=== PATIENT | male | born 1955 | race Caucasian/White ===

== ENCOUNTER 2016-11-27 15:00 | Observation (INO) | payer OTHER ==
[~2016-11-27] VITALS: Ht 172.7 cm; Wt 60.0 kg
[~2016-11-27 15:00] MED LIST: ASPI81CH32 PO; ASPI81TA7 PO; DILA100C PO; Escitalopram Oxalate PO; FLUO40CA PO; FOLI1TAB2 PO; HYDR-4274 PO; LEXA1TAB2 PO; LIDO5TD TD; NAPR500T2 PO; TYLE500T78 PO; Thiamine Hcl PO; VITA50003 PO
[2016-11-27] MEDS ORDERED: CHARCOAL ACTIVATED LIQUID 25 GM/120 ML BTL As Ordered ONE (15:23)
[2016-11-27 15:46] LABS: MEAN CORPUSCULAR HEMOGLOBIN 32.4 pg (27.0-33.0); MEAN CORPUSCULAR HGB CONC 34.2 g/dl (32.0-36.5); RED CELL DISTRIBUTION WIDTH 12.6 % (11.5-14.5); WHITE BLOOD COUNT 6.2 K/mm3 (4.0-10.0)
[2016-11-27 16:14] LABS: ALBUMIN 3.9 GM/DL (3.2-5.2); ALBUMIN/GLOBULIN RATIO 1.56 (1.00-1.93); ALKALINE PHOSPHATASE 78 U/L (45-117); ALT/SGPT 18 U/L (12-78); ANION GAP 11 MEQ/L (8-16); AST/SGOT 21 U/L (15-37); BILIRUBIN,DIRECT 0.1 MG/DL (0.0-0.2); BILIRUBIN,TOTAL 0.6 MG/DL (0.2-1.0); BLOOD UREA NITROGEN 21 MG/DL (7-18); CALCIUM LEVEL 7.9 MG/DL (8.5-10.1); CARBON DIOXIDE LEVEL 23 MEQ/L (21-32); CHLORIDE LEVEL 105 MEQ/L (98-107); GLOMERULAR FILTRATION RATE > 60.0 (>56); GLUCOSE, FASTING 124 MG/DL (70-105); SODIUM LEVEL 139 MEQ/L (136-145); TOTAL PROTEIN 6.4 GM/DL (6.4-8.2)
[2016-11-27 16:18] LABS: CONTROL LINE INT CTR LINE PRESENT; METHADONE URINE NEGATIVE (NEGATIVE); TRICYCLIC ANTIDEPRESS URINE NEGATIVE (NEGATIVE)
[2016-11-27] MEDS ORDERED: METOCLOPRAMIDE INJ 10MG/2ML VIAL (J2765) IV PRN (16:30)
[2016-11-27] MEDS ORDERED: ESCI20TA PO (16:40)
[2016-11-27] MEDS ORDERED: MIRT30TA3 PO (16:40)
[2016-11-27] MEDS ORDERED: LIDO5TD TOP (16:40)
[2016-11-27] MEDS ORDERED: DILA100C PO (16:40)
[2016-11-27] MEDS ORDERED: WELL200T PO (16:40)
[2016-11-27] MEDS ORDERED: NAPR500T2 PO (16:40)
--- NOTE | 2016-11-27 17:19 | EDDOCDS ---
Physician Documentation [facility] Name: Moo Elder Age: 60 yrs Sex: Male : 1955 Arrival Date: 11/27/2016 Time: 15:00 Bed 3 Private MD: Disposition: 11/27 16:27 Critical Care:. pc Disposition: 11/27/16 16:33 Hospitalization ordered by Hailey Maharaj for Inpatient Admission. Preliminary diagnosis are Suicide attempt - by drug overdose: Wellbutrin SR, Lexapro, Major depressive disorder, recurrent, moderate. - Bed requested for PCU. - Status is Inpatient Admission. bcj - Condition is Stable. - Problem is new. - Symptoms have improved. HPI: 15:11 This 60 yrs old Male presents to ER with complaints of Suicidal Ideation, pc Possible Overdose. 15:11 The history is obtained from the patient, transfer records. The patient presents to the emergency department with suicidal ideation, depression, intentional drug overdose. The patient's intention was to commit suicide. At their worst, the symptoms were severe. In the emergency department, the symptoms are unchanged. He presented to his Psychiatrist appointment today and was noted to be slurring his words and unsteady on his feet. He admitted to taking some of his pills (which includes Wellbutrin, Lexapro, Dilantin) as an overdose to commit suicide. He was sent on legal papers via EMS. 15:14 The patient has experienced a previous episode, approximately 10 months ago, and the pc symptoms today are exactly the same. Historical: - Allergies: no known allergies; - Home Meds: 1. Wellbutrin SR 200 mg Oral TbER 1 tab 2 times per day (Last dose: Unknown) 2. citalopram 20 mg Oral tab 1 tab once daily (Last dose: Unknown) 3. aspirin 81 mg Oral TbEC 1 tab once daily (Last dose: Unknown) 4. Dilantin 200mg Oral cap twice a day (Last dose: Unknown) 5. mirtazapine 30 mg Oral tab 1 tab once daily (Last dose: Unknown) - PMHx: Arthritis; brain tumor (1989); Depression; Seizure Disorder; tremors; - PSHx: brain tumor (1990); jaw; - The history from nurses notes was reviewed: but there are no nursing notes, or only partial notes available at the time of my charting. - Social history: Smoking status: Patient uses tobacco products, heavy tobacco smoker. No barriers to communication noted, Speaks appropriately for age. - Hospitalizations: : No recent hospitalization is reported. - : The pt / caregiver states he / she is not on anticoagulants. Home medication list is obtained from the patient. - Immunization history:: All immunizations up-to-date. - Exposure Risk Screening:: None identified. - Family history: Not pertinent. - Social history:: the patient smokes cigarettes the patient drinks alcohol. ROS: 15:14 All systems are negative except as listed. The psychiatric and neurological components pc are also addressed in the HPI. Exam: 15:14 General Appearance: alert, no acute distress. pc 15:14 ENT: ear, nose and throat normal, pharynx normal. 15:14 Eyes: pupils equal, round and reactive to light, extraocular motions intact. 15:14 Neck: The exam reveals no acute abnormalities. ROM is normal and painless. No nuchal rigidity is noted.. 15:14 Respiratory: breathing is even and unlabored, breath sounds are normal. 15:14 Cardiovascular: regular pulse rate, regular heart rhythm, normal heart sounds, equal and full pulses bilaterally. 15:14 Abdomen: soft, non-tender, no organomegaly, normal bowel sounds. 15:14 Skin: skin color is normal, warm, dry. 15:14 Extremities: The extremities have a grossly normal appearance, are non-tender, without acute ROM abnormalities. 15:14 Neuro: alert, oriented to person, place and time, cranial nerves normal as tested, no motor deficits, no sensory deficits, thick speech. 15:14 Psych: 15:14 Psych: mood is depressed, suicidal, affect is flat. Vital Signs: 15:06 BP 112 / 61 (auto/); ml6 15:07 Pulse 90 MON; Resp 16; Temp 98.9(O); Pulse Ox 98% on R/A; Weight 74.84 kg / 164.99 lbs ml6 (R); Height 5 ft. 8 in. (172.72 cm) (R); Pain 0/10; 15:15 BP 112 / 63 (auto/); ml6 15:15 Pulse 93 MON; Resp 16; Pulse Ox 96% on R/A; Pain 0/10; ml6 15:30 BP 111 / 63 (auto/); ml6 15:30 Pulse 90 MON; Resp 16; Pulse Ox 95% on R/A; ml6 15:45 BP 114 / 60 (auto/); ml6 15:45 Pulse 92 MON; Resp 16; Pulse Ox 97% on R/A; ml6 16:00 BP 99 / 58 (auto/); ml6 16:00 Pulse 88 MON; Resp 16; Pulse Ox 95% on R/A; Pain 0/10; ml6 16:15 BP 107 / 56 (auto/); bcj 16:15 BP 102 / 61; Pulse 80; Resp 16; Temp 98.8(O); Pulse Ox 98% on R/A; Pain 0/10; bcj 16:15 Pulse 87 MON; Resp 16; Pulse Ox 95% on R/A; bcj 16:30 BP 107 / 58 (auto/); bcj 16:30 Pulse 85 MON; Resp 16; Pulse Ox 95% on R/A; Pain 0/10; bcj 16:49 BP 95 / 54 (auto/); bcj 16:49 Pulse 86 MON; Resp 16; Pulse Ox 95% on R/A; bcj 15:07 Body Mass Index 25.09 (74.84 kg, 172.72 cm) ml6 MDM: 15:08 Activated Charcoal (1g/kg) Suspension 50 grams PO once ordered. pc 15:08 Consult PFS/PSA/Quality Control Representative ordered. pc 15:08 Consult PFS/PSA/Quality Control Representative: Patient's case requires discussion with on-call pc Psychiatrist ordered. 15:08 PSA/PFS to call Nursing Avionics Safety Inspector, to enter patient data on [place] Safe Act if patient pc involuntarily admitted or transferred for SI or HI ordered. 15:08 Call Poison Control ordered. pc 15:08 Resident Advisor/Pulse Ox/q 15 min VS ordered. pc 15:08 Confirm accurate psychiatric medication list and times of last dosage ordered. pc 15:08 Detain Pt Until Medically/PFS Cleared ordered. pc 15:08 IV Saline Lock ordered. pc 15:08 Acetaminophen Level Ordered. EDMS 15:08 Basic Metabolic Profile Ordered. EDMS 15:08 Complete Blood Count Ordered. EDMS 15:08 Drug Eval Toxicology ED Only Ordered. EDMS 15:08 Ethyl Alcohol (ethanol) Ordered. EDMS 15:08 Liver Profile Ordered. EDMS 15:08 Salicylate Level Ordered. EDMS 15:08 Thyroid Stimulating Hormone Ordered. EDMS 15:08 ECG WITH READING ER PHYS+CARDIAG ordered. EDMS 15:14 Differential diagnosis: depression, suicide attempt, intentional drug overdose. Plan: pc labs, EKG, Poison Control, PFS. 15:30 Test interpretation: EKG. pc 15:43 NS 0.9% 1000 ml IV at 100 mL/hr continuous ordered. pc 15:52 PHENYTOIN Ordered. EDMS 16:20 Financial registration complete. kf3 16:20 Acetaminophen Level Reviewed. pc 16:20 Basic Metabolic Profile Reviewed. pc 16:20 Complete Blood Count Reviewed. pc 16:20 Drug Eval Toxicology ED Only Reviewed. pc 16:20 Ethyl Alcohol (ethanol) Reviewed. pc 16:20 Liver Profile Reviewed. pc 16:20 Salicylate Level Reviewed. pc 16:20 Thyroid Stimulating Hormone Reviewed. pc 16:20 PHENYTOIN Reviewed. pc 16:22 BED REQUEST+ADM ordered. EDMS 16:27 [place] Safe Act reporting: The patient poses a significant risk to self or others, and pc PSA/PFS has notified the Nursing Avionics Safety Inspector and he/she will complete the required data warehousing architect. Data reviewed: old medical records, vital signs, nurses notes, EKG(s), lab test results. Test interpretation: LAB - all labs as ordered have been reviewed, interpreted and considered in the overall management of the clinical presentation;. The patient has been re-examined and re-evaluated. The patient's symptoms have mildly improved after treatment. Other consultation: Poison control, instructed to admit patient. 16:27 Physician consultation: Dr. Hailey Maharaj was contacted at 16:28, regarding admission. pc Disposition: The historical points, examination findings, and any diagnostic results supporting the provided diagnosis, were discussed with the patient or legal guardian. The need for further work-up and/or treatment in the hospital was explained. 16:31 Admission / Observation Status ordered. EDMS 16:31 REGULAR DIET ordered. EDMS 16:37 [facility] [place] Agreement was scanned into Splice and attached to record. zo EC:30 Rate is 89 beats/min. Rhythm is regular, Normal Sinus Rhythm. QRS [place] is Normal. [place] pc interval is normal. QRS interval is normal. QT interval is normal. No Q waves. T waves are Normal. ST Segment is depressed in leads V4, V5, V6. Clinical impression: Normal Sinus Rhythm and Nonspecific ST-T changes. Administered Medications: 15:28 Drug: Activated Charcoal (1g/kg) 50 grams [activated charcoal 25 gram/120 mL oral ml6 suspension (4800 drps)] Route: PO; 15:46 Drug: NS 0.9% 1000 ml [sodium chloride 0.9 % intravenous solution] Route: IV; Rate: 100 ml6 mL/hr; Site: left antecubital; Critical Care Time: 16:27 Critical care time: Bedside Care: 30 minutes, Consultation: 10 minutes. Total time: 40 pc minutes Signatures: Dispatcher [employer] EDMS Sebastián Miller MD MD pc Johnson, Bruce, RN RN Randal Guaman Kris, Reg Reg kf3 Philippe Foote RN RN ml6 Spenser England RN RN mts The chart was reviewed and I authenticate all verbal orders and agree with the evaluation and treatment provided.Corrections: (The following items were deleted from the chart) 15:23 15:11 He presented to his Psychiatrist appointment today and was noted to be slurring pc his words and unsteady on his feet. He admitted to taking some of his pills as an overdose to commit suicide. He was sent on l;egal papers via EMS pc 15:51 15:24 PHENYTOIN (DILANTIN)+LAB ordered. EDGA EDMS Attachments: 16:37 [facility] Payment Agreement zo MTDD
--- NOTE | 2016-11-27 17:19 | EDDOCDS ---
Nurse's Notes [facility] Name: Moo Elder Age: 60 yrs Sex: Male : 1955 Arrival Date: 11/27/2016 Time: 15:00 Bed 3 Private MD: Diagnosis: Suicide attempt-by drug overdose: Wellbutrin SR, Lexapro;Major depressive disorder, recurrent, moderate Presentation: 11/27 15:05 Presenting complaint: Patient states: states that he took 8-9 of his pills in hopes ml6 that he would . Mental Health Triage Level: Level 2: The patient displays active suicidal ideations. Adult Sepsis Screening: The patient does not have new or worsening altered mentation. Patient's respiratory rate is less than 22. Systolic blood pressure is greater than 100. Patient has a qSOFA score of 0- Negative Sepsis Screen. Suicide/Homicide risk assessment- The patient admits to and/or has been reported to be having suicidal ideations. Status: Patient is not a service employee or dependent. Transition of care: patient was received from a primary care office; . 15:05 Acuity: SRIKANTH Level 2 ml6 15:05 Method Of Arrival: Ambulance ml6 Triage Assessment: 15:05 General: Appears in no apparent distress, Behavior is appropriate for age, cooperative. ml6 Pain: Denies pain. HIV screening NA for this visit Offered previously. The patient is triaged at the bedside. See Assessment in Nurses Notes section of ED record. Neurological: Level of Consciousness is awake, alert, Oriented to person, place, time, Outside Sales are equal bilaterally Moves all extremities. Full function Gait is steady, Speech is normal, Facial symmetry appears normal, Pupils are PERRLA. Cardiovascular: No deficits noted. Capillary refill < 3 seconds is brisk in bilateral fingers toes Heart tones S1 S2 present. Respiratory: No deficits noted. Airway is patent Respiratory effort is even, unlabored, Respiratory pattern is regular, symmetrical. GI: No deficits noted. Abdomen is flat, non- distended Bowel sounds present X 4 quads. Historical: - Allergies: no known allergies; - Home Meds: 1. Wellbutrin SR 200 mg Oral TbER 1 tab 2 times per day (Last dose: Unknown) 2. citalopram 20 mg Oral tab 1 tab once daily (Last dose: Unknown) 3. aspirin 81 mg Oral TbEC 1 tab once daily (Last dose: Unknown) 4. Dilantin 200mg Oral cap twice a day (Last dose: Unknown) 5. mirtazapine 30 mg Oral tab 1 tab once daily (Last dose: Unknown) - PMHx: Arthritis; brain tumor (1989); Depression; Seizure Disorder; tremors; - PSHx: brain tumor (1990); jaw; - The history from nurses notes was reviewed: but there are no nursing notes, or only partial notes available at the time of my charting. - Social history: Smoking status: Patient uses tobacco products, heavy tobacco smoker. No barriers to communication noted, Speaks appropriately for age. - Hospitalizations: : No recent hospitalization is reported. - : The pt / caregiver states he / she is not on anticoagulants. Home medication list is obtained from the patient. - Immunization history:: All immunizations up-to-date. - Exposure Risk Screening:: None identified. - Family history: Not pertinent. - Social history:: the patient smokes cigarettes the patient drinks alcohol. Screenin:33 Screening information is obtained from the patient. Fall risk: No risks identified. ml6 Assistance ADL's: requires no assistance with activities of daily living. Abuse/DV Screen: The patient / caregiver reports he/she is: not in a situation that causes fear, pain or injury. Nutritional screening: No deficits noted. Advance Directives: Currently, there is no health care proxy. home support is adequate. Assessment: 15:05 General: see triage assessment. ml6 15:42 General: per Terrie at poison control 24 hour OBS and IVF. ml6 16:13 General: patient pulled out IV, states "I thought it would be fun to do", new 18g PIV ml6 restarted in left FA. 17:16 General: Appears in no apparent distress, comfortable. Pain: Denies pain. Neurological: bcj No deficits noted. Level of Consciousness is awake, alert, Oriented to person, place, time. Cardiovascular: No deficits noted. Capillary refill < 3 seconds is brisk in bilateral fingers toes. Respiratory: No deficits noted. Airway is patent Respiratory effort is even, unlabored, Respiratory pattern is regular, symmetrical, Breath sounds are clear bilaterally. GI: No deficits noted. Vital Signs: 15:06 BP 112 / 61 (auto/); ml6 15:07 Pulse 90 MON; Resp 16; Temp 98.9(O); Pulse Ox 98% on R/A; Weight 74.84 kg (R); Height 5 ml6 ft. 8 in. (172.72 cm) (R); Pain 0/10; 15:15 BP 112 / 63 (auto/); ml6 15:15 Pulse 93 MON; Resp 16; Pulse Ox 96% on R/A; Pain 0/10; ml6 15:30 BP 111 / 63 (auto/); ml6 15:30 Pulse 90 MON; Resp 16; Pulse Ox 95% on R/A; ml6 15:45 BP 114 / 60 (auto/); ml6 15:45 Pulse 92 MON; Resp 16; Pulse Ox 97% on R/A; ml6 16:00 BP 99 / 58 (auto/); ml6 16:00 Pulse 88 MON; Resp 16; Pulse Ox 95% on R/A; Pain 0/10; ml6 16:15 BP 107 / 56 (auto/); bcj 16:15 BP 102 / 61; Pulse 80; Resp 16; Temp 98.8(O); Pulse Ox 98% on R/A; Pain 0/10; bcj 16:15 Pulse 87 MON; Resp 16; Pulse Ox 95% on R/A; bcj 16:30 BP 107 / 58 (auto/); bcj 16:30 Pulse 85 MON; Resp 16; Pulse Ox 95% on R/A; Pain 0/10; bcj 16:49 BP 95 / 54 (auto/); bcj 16:49 Pulse 86 MON; Resp 16; Pulse Ox 95% on R/A; bcj 15:07 Body Mass Index 25.09 (74.84 kg, 172.72 cm) ml6 Vitals: 15:30 Log In Time N/A - ambulance arrival. ml6 ED Course: 15:01 Patient visited by Avila Campos PCA. jrd 15:01 Patient moved to Waiting jrd 15:02 Philippe Foote, MEGAN is Primary Nurse. jrd 15:02 Sebastián Miller MD is Attending Physician. pc 15:02 Patient moved to 3 jrd 15:05 The patient / caregiver is instructed regarding the plan of care and ED course. Cardiac ml6 monitor on. Pulse ox on. NIBP on. 15:05 Inserted peripheral IV: 18gauge IV in left antecubital area and blood collected. ml6 Patient tolerated the procedure well. Labs drawn. (by ED staff). Sent per order to lab. 15:06 Patient visited by Sebastián Miller MD. pc 15:30 Triage Initiated ml6 15:31 Patient visited by Avila Campos PCA. jrd 15:31 EKG done. (by ED staff). Reviewed by Sebastián Miller MD. jrd 16:04 Patient visited by Philippe Foote RN. ml6 16:13 PHENYTOIN Sent. pc 16:33 Hailey Maharaj is Hospitalizing Provider. pc 16:37 [facility] Payment Agreement was scanned into A[employer] and attached to record. zo 16:39 Patient name changed from Moo\\S\\\\S\\Baszto\\S\\ to Moo\\S\\ \\S\\Baszto. EDMS 17:18 No procedures done that require assistance. bcj Administered Medications: 15:28 Drug: Activated Charcoal (1g/kg) 50 grams [activated charcoal 25 gram/120 mL oral ml6 suspension (4800 drps)] Route: PO; 15:46 Drug: NS 0.9% 1000 ml [sodium chloride 0.9 % intravenous solution] Route: IV; Rate: 100 ml6 mL/hr; Site: left antecubital; Order Results: Lab Order: Acetaminophen Level; SPEC'M 11/27/16 15:18 Test: ACETAMINOPHEN LEVEL; Value: < 2.0; Range: 10.0-30.0; Abnormal: Below low normal; Units: UG/ML; Status: F Lab Order: Basic Metabolic Profile; SPEC'M 11/27/16 15:18 Test: GLUCOSE, FASTING; Value: 124; Range: 70-105; Abnormal: Above high normal; Units: MG/DL; Status: F Test: BLOOD UREA NITROGEN; Value: 21; Range: 7-18; Abnormal: Above high normal; Units: MG/DL; Status: F Test: CREATININE FOR GFR; Value: 1.30; Range: 0.70-1.30; Units: MG/DL; Status: F Test: GLOMERULAR FILTRATION RATE; Value: > 60.0; Range: >56; Status: F Test: SODIUM LEVEL; Value: 139; Range: 136-145; Units: MEQ/L; Status: F Test: POTASSIUM SERUM; Value: 4.0; Range: 3.5-5.1; Units: MEQ/L; Status: F Test: CHLORIDE LEVEL; Value: 105; Range: 98-107; Units: MEQ/L; Status: F Test: CARBON DIOXIDE LEVEL; Value: 23; Range: 21-32; Units: MEQ/L; Status: F Test: ANION GAP; Value: 11; Range: 8-16; Units: MEQ/L; Status: F Test: CALCIUM LEVEL; Value: 7.9; Range: 8.5-10.1; Abnormal: Below low normal; Units: MG/DL; Status: F Test Note: ; Units are mL/min/1.73 m2 Chronic Kidney Disease Staging per NKF: Stage I & II GFR >=60 Normal to Mildly Decreased Stage III GFR 30-59 Moderately Decreased Stage IV GFR 15-29 Severely Decreased Stage V GFR <15 Very Little GFR Left ESRD GFR <15 on LAMINATION MACHINE OPERATOR Lab Order: Complete Blood Count; [facility] 11/27/16 15:18 Test: WHITE BLOOD COUNT; Value: 6.2; Range: 4.0-10.0; Units: K/mm3; Status: F Test: RED BLOOD COUNT; Value: 3.97; Range: 4.30-6.10; Abnormal: Below low normal; Units: M/mm3; Status: F Test: HEMOGLOBIN; Value: 12.9; Range: 14.0-18.0; Abnormal: Below low normal; Units: g/dl; Status: F Test: HEMATOCRIT; Value: 37.7; Range: 42.0-52.0; Abnormal: Below low normal; Units: %; Status: F Test: MEAN CORPUSCULAR VOLUME; Value: 95.0; Range: 80.0-96.0; Units: fl; Status: F Test: MEAN CORPUSCULAR HEMOGLOBIN; Value: 32.4; Range: 27.0-33.0; Units: pg; Status: F Test: MEAN CORPUSCULAR HGB CONC; Value: 34.2; Range: 32.0-36.5; Units: g/dl; Status: F Test: RED CELL DISTRIBUTION WIDTH; Value: 12.6; Range: 11.5-14.5; Units: %; Status: F Test: PLATELET COUNT, AUTOMATED; Value: 231; Range: 150-450; Units: k/mm3; Status: F Lab Order: Drug Eval Toxicology ED Only; SPEC'M 11/27/16 15:18 Test: AMPHETAMINES LEVEL URINE; Value: NEGATIVE; Range: NEGATIVE; Status: F Test: BARBITURATES URINE; Value: NEGATIVE; Range: NEGATIVE; Status: F Test: BENZODIAZEPINES URINE; Value: NEGATIVE; Range: NEGATIVE; Status: F Test: CANNABINOIDS URINE; Value: NEGATIVE; Range: NEGATIVE; Status: F Test: COCAINE METABOLITE URINE; Value: NEGATIVE; Range: NEGATIVE; Status: F Test: METHADONE URINE; Value: NEGATIVE; Range: NEGATIVE; Status: F Test: OPIATES URINE; Value: NEGATIVE; Range: NEGATIVE; Status: F Test: TRICYCLIC ANTIDEPRESS URINE; Value: NEGATIVE; Range: NEGATIVE; Status: F Test Note: ; ALL PRESUMPTIVE POSITIVE FINDINGS ARE UNCONFIRMED NORMAL VALUES THRESHOLD IN NG/ML AMPHETAMINES 1000 METHAMPHETAMINES 1000 BARBITURATES 300 BENZODIAZEPINES 300 CANNABINOIDS (THC) 50 COCAINE METABOLITE 300 METHADONE 300 OPIATES 300 PHENCYCLIDINE 25 TRICYCLIC ANTIDEPRESSANTS 1000 RESULTS ARE FOR MEDICAL PURPOSES ONLY. ALL URINE SPECIMENS WILL BE SAVED FOR 3 DAYS. IF CONFIRMATION OF A PRESUMPTIVE POSTIVE SCREEN RESULT IS DESIRED, CALL CHEMISTRY ([phone]) AND REQUEST URINE TO BE SENT TO REFERENCE LAB. FOR A LIST OF CLOSELY RELATED COMPOUNDS PLEASE CALL THE LAB. Lab Order: Ethyl Alcohol (ethanol); SPEC'M 11/27/16 15:18 Test: ETHYL ALCOHOL (ETHANOL); Value: < 0.003; Range: 0.000-0.010; Units: %; Status: F Lab Order: Liver Profile; SPEC'M 11/27/16 15:18 Test: AST/SGOT; Value: 21; Range: 15-37; Units: U/L; Status: F Test: ALT/SGPT; Value: 18; Range: 12-78; Units: U/L; Status: F Test: ALKALINE PHOSPHATASE; Value: 78; Range: 45-117; Units: U/L; Status: F Test: BILIRUBIN,TOTAL; Value: 0.6; Range: 0.2-1.0; Units: MG/DL; Status: F Test: BILIRUBIN,DIRECT; Value: 0.1; Range: 0.0-0.2; Units: MG/DL; Status: F Test: TOTAL PROTEIN; Value: 6.4; Range: 6.4-8.2; Units: GM/DL; Status: F Test: ALBUMIN; Value: 3.9; Range: 3.2-5.2; Units: GM/DL; Status: F Test: ALBUMIN/GLOBULIN RATIO; Value: 1.56; Range: 1.00-1.93; Status: F Lab Order: Salicylate Level; SPEC'M 11/27/16 15:18 Test: SALICYLATE LEVEL; Value: 6.7; Range: 5.0-30.0; Units: MG/DL; Status: F Lab Order: Thyroid Stimulating Hormone; SPEC'M 11/27/16 15:18 Test: THYROID STIMULATING HORMONE; Value: 0.377; Range: 0.358-3.740; Units: uIU/ML; Status: F Lab Order: PHENYTOIN; SPEC'M 11/27/16 15:18 Test: PHENYTOIN (DILANTIN); Value: 10.2; Range: 10.0-20.0; Units: UG/ML; Status: F Outcome: 16:33 Decision to Hospitalize by Provider. 17:18 Discharge Assessment: patient administered narcotics - no. The following High Risk [facility] Discharge criteria are identified: None. Admitted to PCU accompanied by nurse, accompanied by tech, via stretcher, on monitor, with chart. Condition: stable. No special radiology studies were completed. Property :Personal belongings accompany Pt. 17:18 Patient left the ED. [facility] Signatures: Dispatcher [employer] EDSebastián Case MD MD pc Johnson, Bruce, RN RN Rnadal Guaman Matthew, RN RN ml6 Avila Campos, SIMEON REHABILITATION COORDINATOR jrd MTDD
[2016-11-27 17:30] VITALS: BP 105/65
[2016-11-27 19:04] VITALS: BP 107/63
[2016-11-27] MEDS: **NOTE PATIENT COMMENT** MISC XX SCH (21:00)
[2016-11-28 00:21] VITALS: BP 105/56
[2016-11-28] MEDS: LORazepam 2 MG/ML VIAL (J2060) IV PRN ×2 (03:06→09:56)
[2016-11-28 03:36] VITALS: BP 118/65
[2016-11-28 05:22] LABS: BASO % 0.6 % (0.0-1.0); EOS # 0.1 K/mm3 (0.0-0.50); EOS % 1.3 % (0.0-3.0); LARGE UNSTAINED CELL # 0.2 K/mm3 (0.0-0.4); LARGE UNSTAINED CELL % 3.7 % (0.0-4.0); LYMPH # 2.9 K/mm3 (1.5-4.5); LYMPH % 45.3 % (24.0-44.0); MEAN CORPUSCULAR HEMOGLOBIN 31.4 pg (27.0-33.0); MEAN CORPUSCULAR HGB CONC 33.1 g/dl (32.0-36.5); MEAN CORPUSCULAR VOLUME 94.9 fl (80.0-96.0); MONO # 0.6 K/mm3 (0.0-0.8); MONO % 9.9 % (0.0-5.0); NEUTROPHILS # 2.5 K/mm3 (1.8-7.7); NEUTROPHILS % 39.2 % (36.0-66.0); PLATELET COUNT, AUTOMATED 218 k/mm3 (150-450); RED CELL DISTRIBUTION WIDTH 12.6 % (11.5-14.5); WHITE BLOOD COUNT 6.3 K/mm3 (4.0-10.0)
[2016-11-28 05:31] LABS: ALBUMIN 3.6 GM/DL (3.2-5.2); ALBUMIN/GLOBULIN RATIO 1.29 (1.00-1.93); ALKALINE PHOSPHATASE 72 U/L (45-117); ALT/SGPT 14 U/L (12-78); ANION GAP 7 MEQ/L (8-16); AST/SGOT 22 U/L (15-37); BILIRUBIN,TOTAL 0.4 MG/DL (0.2-1.0); BLOOD UREA NITROGEN 14 MG/DL (7-18); CALCIUM LEVEL 8.1 MG/DL (8.5-10.1); CARBON DIOXIDE LEVEL 27 MEQ/L (21-32); CHLORIDE LEVEL 109 MEQ/L (98-107); CREATININE FOR GFR 0.91 MG/DL (0.70-1.30); GLOMERULAR FILTRATION RATE > 60.0 (>56); GLUCOSE, FASTING 80 MG/DL (70-105); POTASSIUM SERUM 3.8 MEQ/L (3.5-5.1); SODIUM LEVEL 143 MEQ/L (136-145); TOTAL PROTEIN 6.4 GM/DL (6.4-8.2)
--- NOTE | 2016-11-28 06:01 | HPE ---
DATE OF ADMISSION: 11/27/2016 PRIMARY CARE PROVIDER: Lary Francisco. CHIEF COMPLAINT: Suicidal attempt with intake of Wellbutrin, Lexapro and dilantin. PAST MEDICAL HISTORY: 1. Brain tumor in 1990 status post surgery and radiation therapy. 2. Seizure disorder. 3. Tremors. 4. Learning disability. 5. Depression with suicidal attempt in the past. 6. Arthritis. HISTORY OF PRESENT ILLNESS: This is a 60-year-old male with history of brain tumor in 1990, for which he had undergone surgery followed by radiation therapy. Also history of seizure disorder related to that. History of depression with prior suicidal attempt in January 2016, learning disability, who has been going through a separation with his of 36 years. They have been seeing psychiatrist and a counselor at [facility], as well as have been seeing a psychologist, Fili Fregoso, at [place] for the past year since his last suicidal attempt. However, now their separation is more defined and they have set up a date and the plan is for him to move to an apartment in [place] with a tentative date of 05/23 and this morning he had an appointment with his counselor at [facility]. He was taken by his public health social worker there for his appointment and there he told that he was depressed and sad and he did not want to live anymore, so he had taken eight or nine pills together of his dilantin, Lexapro and Wellbutrin, so he was sent to our emergency room for evaluation. In the emergency department (ED), patient's vital signs were stable. Patient's blood work was within normal limits. EKG sinus rhythm without any QTc prolongation. His urine toxicology (U-tox) was negative. Dilantin level was therapeutic range. Poison Control was called by emergency room (ER) physician and was advised 24-hour telemetry monitoring because of his intake of unknown quantity of long-acting Wellbutrin, so the patient is being admitted to the [facility] hospital practice service for suicidal attempt. PAST SURGICAL HISTORY: 1. Brain tumor surgery in 1990. 2. Jaw surgery. ALLERGIES: No known drug allergies. HOME MEDICATIONS: - Wellbutrin extended release 200 mg one tablet twice a day - citalopram 20 mg one tablet daily - aspirin 81 mg daily - dilantin 200 mg twice a day - mirtazapine 30 mg one tablet daily SOCIAL HISTORY: Patient smokes and drinks alcohol, does not abuse recreational drugs. FAMILY HISTORY: Nothing pertinent. PHYSICAL EXAMINATION: VITAL SIGNS: Blood pressure 108/60, pulse 88, respiratory rate 16, temperature 98.9, pulse oximetry 95% in room air. GENERAL: Patient awake, alert, oriented times three, lying down in bed in no acute distress. HEENT: Normocephalic, atraumatic. Moist mucous membranes. Anicteric eyes. CHEST: Clear to auscultation. CARDIOVASCULAR: S1, S2 regular. ABDOMEN: Soft, nontender, bowel sounds present. EXTREMITIES: No edema. LABORATORY DATA: WBC 6.2, hemoglobin 12.9, platelets 231. Sodium 139, potassium 4, chloride 105, bicarbonate 26, BUN 21, creatinine 1.3, glucose 124, calcium 7.9. Liver function tests are normal. U-tox negative. Dilantin level 10.2. Alcohol level negative. ASSESSMENT AND PLAN: This is a 60-year-old male admitted for suicidal attempt. PLAN: 1. Suicidal attempt. Will monitor the patient under telemetry for 24 hours and then once medically cleared will call psychiatry. Will hold his Lexapro, dilantin, Wellbutrin and also mirtazapine as unknown quantities of the three medications have been taken. 2. Major depressive disorder with suicidal attempt. Will call psychiatry once medically cleared. Will place the patient on one-to-one. 3. Tremors and seizure disorder. Will hold dilantin now. Will recheck dilantin level tomorrow morning and then restart. 4. History of brain tumor status post surgery and radiation. Stable at this point. 5. Deep venous thrombosis (DVT) prophylaxis has been ordered. 6. Gastrointestinal (GI) prophylaxis has been ordered.
--- NOTE | 2016-11-28 07:23 | ECGEPIP ---
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
[2016-11-28 08:00] VITALS: BP 132/71
[2016-11-28] MEDS: ASPIRIN 81 MG CHEW TABLET PO SCH (09:56)
[2016-11-28] MEDS: ENOXAPARIN 40 MG/0.4 ML SYRINGE (J1650) SC SCH (09:56)
[2016-11-28] MEDS: LIDOCAINE 5% (LIDODERM) PATCH TOP SCH (09:56)
[2016-11-28] MEDS: PANTOPRAZOLE 40MG TAB (PROTONIX) PO SCH (09:56)
--- NOTE | 2016-11-28 10:15 | IPNPDOC ---
Subjective Date Seen The patient was seen on 11/28/16. Subjective Chief Complaint/HPI The patient is a 60-year-old male admitted with a reason for visit of Suicide Attempt. Events since last encounter Seen this morning in the PCU. He was admitted yesterday afternoon after reportedly attempting to overdose on dilantin and wellbutrin at around 1800 the night prior, per the patient. Tele reviewed and demonstrates NSR, Qtc WNL on EKG. He denies SI today but continues to have fluctuating levels of consciousness and agitation per nursing staff. Dilantin and Salicylate levels both increased at last check, however, both levels were w/in normal range. General: Reports: Normal Appetite, Denies: Chills, Fatigue, Malaise, Night Sweats Constitutional: Denies: Chills, Fever, Night Sweats ENT: Denies: Dysphagia, Ear Pain, Head Aches Pulmonary: Denies: Cough, Dyspnea Cardiovascular: Denies: Chest Pain, Lt Headedness, Orthopnea, Palpitations, Paroxysmal Noc. Dyspnea Gastrointestinal: Denies: Abdominal Pain, Constipation, Diarrhea, Nausea, Vomiting Hematologic: Denies: Bleeding Excessively, Bruising Neurological: Reports: Other Symptoms (cronic rigidity) Psych: Reports: Depression, Thoughts of Self Harm, Denies: Thoughts of Harming Other Objective Physical Examination General Exam: Positive: Alert, Cooperative Eye Exam: Positive: Conjunctiva & lids normal, EOMI, PERRLA, Negative: Sclera icteric ENT Exam: Positive: Atraumatic, Mucous membr. moist/pink, Pharynx Normal Neck Exam: Positive: Supple, Negative: JVD, thyromegaly Chest Exam: Positive: Clear to auscultation, Normal air movement Heart Exam: Positive: Normal S1, Normal S2, Rate Normal, Regular Rhythm, Negative: Murmurs, Rubs Telemetry: Positive: No significant arrhythmia, Sinus Abdomen Exam: Positive: Normal bowel sounds, Soft, Negative: Hepatospenomegaly, Tenderness Skin Exam: Positive: Nl turgor and temperature, Negative: Breakdown, Rash Neuro Exam: Positive: Normal Tone, Other (+ horizontal nystagmus + upper extremity cogwheel rigidity (he reports this is chronic)), Sensation Intact Assessment /Plan Assessment Family Medicine Attending Note: I was present on site to supervise Dr. Matt Goodman (OGME-3). We discussed the history and exam. I confirmed the smith elements during my [id number] encounter with the patient. We conferred on the assessment and plan; I agree with the note as documented. I note that his salicylate level as well as valproate level continued to rise throughout the day. Nursing was in contact with poison control who recommended we monitor it until at least it has peaked and was a clear trend down. Labs have been ordered for tomorrow morning. We have not yet consulted psychiatry, because it's not clear that he is medically stable at this point. Remains with a one-on-one sitter for his personal safety. N.B. The horizontal nystagmus was not noted on an neurological consultation done in the outpatient setting in 07/2016. 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 On exam today, he denies ever taking any of these mediations. -Dilantin / salicylate levels increasing, will recheck. -Dilantin in therapeutic range but he does have evidence of horizontal nystagmus on exam, unclear as to the acuity of this. He is outside the window for activated charcoal. -Wellbutrin dc, low risk for 5HT syndrome or w/drawal considering low serotinergic activity of this med. -EKG c NSR / wnl QTc. Tele demonstrates NSR c significant episodes of artifact 2 /2 pt attempting to pull off leads. -Poison control on-board and rec low dose BDZ prn agitation. Will continue for now on PRN basis. -24H sitter ordered for monitoring -Added neuro check qshift -Unclear as to what he may have actually taken since levels of salicylate and dilantin wnl. -Tox screen neg -Denies EtOH abuse or recent use; level <0.02 in ED; will monitor for now. -Likely requires monitoring for an add'l 24H. Hopeful transfer to [facility] tomorrow if stable. (2) Epilepsy Status: Chronic Problem Text: Dilantin is currently on hold bc his levels were increasing overnight. Will continue to trend and restart once levels start trending downwards. (3) Depression Status: Chronic Problem Text: Chronic, does have previous suicide attempt in 01/2016. -Wellbutrin held 2/2 to possible OD -TSH WNL -Transfer to [facility] once clinically stable Plan/VTE VTE Prophylaxis Ordered?: Yes (Lovenox) Plan Diagnostics: Check Labs, Repeat Labs in AM, EKG VS, I&O, 24H, [facility] Vital Signs/I&O Vital Signs Date Time Temp Pulse Resp B/P Pulse Ox O2 Delivery O2 Flow Rate FiO2 11/28/16 08:00 96.9 69 20 132/71 97 Room Air I&O- Last 24 Hours up to 6 AM 11/28/16 06:00 Intake Total 540 ml Output Total 1875 ml Balance -1335 ml Laboratory Data 24H LABS Laboratory Tests 2 11/27/16 15:18: Acetaminophen Level < 2.0L, Aspartate Amino Transf (AST/SGOT) 21, Alanine Aminotransferase (ALT/SGPT) 18, Alkaline Phosphatase 78, Total Bilirubin 0.6, Direct Bilirubin 0.1, Albumin 3.9, Albumin/Globulin Ratio 1.56, Anion Gap 11, Calcium Level 7.9L, Ethyl Alcohol Level < 0.003, Glomerular Filtration Rate > 60.0, Phenytoin (Dilantin) Level 10.2, Salicylates Level 6.7, Thyroid Stimulating Hormone (TSH) 0.377, Total Protein 6.4, Urine Amphetamines Screen NEGATIVE, Urine Benzodiazepines Screen NEGATIVE, Urine Opiates Screen NEGATIVE, Urine Barbiturates Screen NEGATIVE, Urine Cannabinoids Screen NEGATIVE, Urine Cocaine Metabolite Screen NEGATIVE, Urine Methadone Screen NEGATIVE, Urine Tricyclic Antidepressants NEGATIVE 11/27/16 20:28: Acetaminophen Level < 2.0L, Phenytoin (Dilantin) Level 16.3 11/28/16 02:54: Phenytoin (Dilantin) Level 17.3, Salicylates Level 6.9 11/28/16 04:21: Aspartate Amino Transf (AST/SGOT) 22, Alanine Aminotransferase (ALT/SGPT) 14, Alkaline Phosphatase 72, Total Bilirubin 0.4, Albumin 3.6, Albumin/Globulin Ratio 1.29, Anion Gap 7L, Calcium Level 8.1L, Glomerular Filtration Rate > 60.0 , Total Protein 6.4, Blood Urea Nitrogen 14, Creatinine 0.91, Sodium Level 143, Potassium Level 3.8, Chloride Level 109H, Carbon Dioxide Level 27, White Blood Count 6.3, Red Blood Count 4.03L, Hemoglobin 12.7L, Hematocrit 38.3L, Mean Corpuscular Volume 94.9, Mean Corpuscular Hemoglobin 31.4, Mean Corpuscular Hemoglobin Concent 33.1, Red Cell Distribution Width 12.6, Platelet Count 218, Neutrophils (%) (Auto) 39.2, Lymphocytes (%) (Auto) 45.3H, Monocytes (%) (Auto) 9.9H, Eosinophils (%) (Auto) 1.3, Basophils (%) (Auto) 0.6, Neutrophils # (Auto ) 2.5, Lymphocytes # (Auto) 2.9, Monocytes # (Auto) 0.6, Eosinophils # (Auto) 0.1, Basophils # (Auto) 0.0, Large Unclassified Cells # 0.2, Large Unclassified Cells % 3.7 11/28/16 09:24: CBC/BMP Laboratory Tests 11/27/16 15:18 Red Blood Count 3.97 L, Mean Corpuscular Volume 95.0, Mean Corpuscular Hemoglobin 32.4, Mean Corpuscular Hemoglobin Concent 34.2, Red Cell Distribution Width 12.6 11/28/16 04:21 Red Blood Count 4.03 L, Mean Corpuscular Volume 94.9, Mean Corpuscular Hemoglobin 31.4, Mean Corpuscular Hemoglobin Concent 33.1, Red Cell Distribution Width 12.6, Calcium Level 8.1 L, Aspartate Amino Transf (AST/SGOT) 22, Alanine Aminotransferase (ALT/SGPT) 14, Alkaline Phosphatase 72, Total Bilirubin 0.4, Total Protein 6.4, Albumin 3.6, Neutrophils (%) (Auto) 39.2, Lymphocytes (%) (Auto) 45.3 H, Monocytes (%) (Auto) 9.9 H, Eosinophils (%) (Auto ) 1.3, Basophils (%) (Auto) 0.6, Neutrophils # (Auto) 2.5, Lymphocytes # (Auto) 2.9, Monocytes # (Auto) 0.6, Eosinophils # (Auto) 0.1, Basophils # (Auto) 0.0 MATT GOODMAN DO Nov 28, 2016 10:15 Frankie Tucker MD Nov 28, 2016 20:06
[2016-11-28 12:00] VITALS: BP 107/70
[2016-11-28 16:00] VITALS: BP 118/72
--- NOTE | 2016-11-28 17:44 | ECGEPIP ---
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
[2016-11-28 20:00] VITALS: BP 108/69
[2016-11-28] MEDS: **NOTE PATIENT COMMENT** MISC XX SCH (21:00)
[2016-11-28 21:48] LABS: ANION GAP 6 MEQ/L (8-16); BLOOD UREA NITROGEN 16 MG/DL (7-18); CALCIUM LEVEL 7.9 MG/DL (8.5-10.1); CARBON DIOXIDE LEVEL 28 MEQ/L (21-32); CHLORIDE LEVEL 109 MEQ/L (98-107); CREATININE FOR GFR 0.99 MG/DL (0.70-1.30); GLOMERULAR FILTRATION RATE > 60.0 (>56); GLUCOSE, FASTING 118 MG/DL (70-105); MAGNESIUM LEVEL 2.1 MG/DL (1.8-2.4); SODIUM LEVEL 143 MEQ/L (136-145)
[2016-11-28] MEDS: NICOTINE 7 MG/24 HR TRANSDERMAL TD SCH (22:36)
[2016-11-29] VITALS: BP 120/74
[2016-11-29 04:00] VITALS: BP 98/65
[2016-11-29 05:29] LABS: BASO % 0.7 % (0.0-1.0); EOS # 0.2 K/mm3 (0.0-0.50); EOS % 2.7 % (0.0-3.0); LARGE UNSTAINED CELL # 0.2 K/mm3 (0.0-0.4); LARGE UNSTAINED CELL % 2.8 % (0.0-4.0); LYMPH # 2.7 K/mm3 (1.5-4.5); LYMPH % 49.5 % (24.0-44.0); MEAN CORPUSCULAR HEMOGLOBIN 31.8 pg (27.0-33.0); MEAN CORPUSCULAR VOLUME 96.2 fl (80.0-96.0); MONO # 0.5 K/mm3 (0.0-0.8); MONO % 9.3 % (0.0-5.0); NEUTROPHILS # 1.9 K/mm3 (1.8-7.7); NEUTROPHILS % 35.1 % (36.0-66.0); PLATELET COUNT, AUTOMATED 256 k/mm3 (150-450); RED CELL DISTRIBUTION WIDTH 12.6 % (11.5-14.5); WHITE BLOOD COUNT 5.5 K/mm3 (4.0-10.0)
[2016-11-29 05:49] LABS: ALBUMIN 3.5 GM/DL (3.2-5.2); ALBUMIN/GLOBULIN RATIO 1.21 (1.00-1.93); ALKALINE PHOSPHATASE 81 U/L (45-117); ALT/SGPT 13 U/L (12-78); ANION GAP 9 MEQ/L (8-16); AST/SGOT 17 U/L (15-37); BILIRUBIN,TOTAL 0.5 MG/DL (0.2-1.0); BLOOD UREA NITROGEN 15 MG/DL (7-18); CALCIUM LEVEL 8.1 MG/DL (8.5-10.1); CARBON DIOXIDE LEVEL 28 MEQ/L (21-32); CHLORIDE LEVEL 108 MEQ/L (98-107); CREATININE FOR GFR 0.92 MG/DL (0.70-1.30); GLOMERULAR FILTRATION RATE > 60.0 (>56); GLUCOSE, FASTING 83 MG/DL (70-105); POTASSIUM SERUM 4.1 MEQ/L (3.5-5.1); SODIUM LEVEL 145 MEQ/L (136-145); TOTAL PROTEIN 6.4 GM/DL (6.4-8.2)
[2016-11-29 08:00] VITALS: BP 114/62
[2016-11-29] MEDS: LIDOCAINE 5% (LIDODERM) PATCH TOP SCH (08:55)
[2016-11-29] MEDS: ASPIRIN 81 MG CHEW TABLET PO SCH (08:56)
[2016-11-29] MEDS: PANTOPRAZOLE 40MG TAB (PROTONIX) PO SCH (08:56)
[2016-11-29] MEDS: ENOXAPARIN 40 MG/0.4 ML SYRINGE (J1650) SC SCH (08:56)
--- NOTE | 2016-11-29 10:35 | IPNPDOC ---
Subjective Date Seen The patient was seen on 11/29/16. Subjective Chief Complaint/HPI Pt this morning is much more awake and alert. He does have a sitter at bedside. General: Denies: Fatigue Constitutional: Denies: Chills, Fever Pulmonary: Denies: Cough, Dyspnea Cardiovascular: Denies: Chest Pain, Palpitations Gastrointestinal: Denies: Diarrhea, Nausea, Vomiting Psych: Reports: Mood Normal Objective Physical Examination General Exam: Positive: Alert, Cooperative Eye Exam: Positive: Conjunctiva & lids normal, EOMI, PERRLA, Negative: Sclera icteric ENT Exam: Positive: Mucous membr. moist/pink Neck Exam: Positive: Supple, Negative: JVD, thyromegaly Chest Exam: Positive: Clear to auscultation, Normal air movement Heart Exam: Positive: Normal S1, Normal S2, Rate Normal, Regular Rhythm, Negative: Murmurs, Rubs Telemetry: Positive: No significant arrhythmia, Sinus Abdomen Exam: Positive: Normal bowel sounds, Soft, Negative: Hepatospenomegaly, Tenderness Skin Exam: Positive: Nl turgor and temperature, Negative: Breakdown, Rash Neuro Exam: Positive: Normal Tone, Other (mild horizontal nystagmus), Sensation Intact Assessment /Plan Assessment Family Medicine Attending Note: I saw and examined Mr. Elder, discussed with ART Church. Agree with their note as documented. The patient is much more alert and fully oriented today. I was able to interview him with his as well today. He had already met with the psychiatrist, Dr. Barnhart, by the time I saw him today. He seems to have good insight into his depression and what the upcoming plan is for him. 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 Tele Neg. Nystagmus improved c/w yesterday. medically safe for transfer for [facility]. Dr Barnhart consulted, anticipates transfer tomorrow based on bed availability. 11/28 Per H&P, he attempted overdose c dilantin and wellbutrin. On exam today, he denies ever taking any of these mediations. -Dilantin / salicylate levels increasing, will recheck. -Dilantin in therapeutic range but he does have evidence of horizontal nystagmus on exam, unclear as to the acuity of this. He is outside the window for activated charcoal. -Wellbutrin dc, low risk for 5HT syndrome or w/drawal considering low serotinergic activity of this med. -EKG c NSR / wnl QTc. Tele demonstrates NSR c significant episodes of artifact 2 /2 pt attempting to pull off leads. -Poison control on-board and rec low dose BDZ prn agitation. Will continue for now on PRN basis. -24H sitter ordered for monitoring -Added neuro check qshift -Unclear as to what he may have actually taken since levels of salicylate and dilantin wnl. -Tox screen neg -Denies EtOH abuse or recent use; level <0.02 in ED; will monitor for now. -Likely requires monitoring for an add'l 24H. Hopeful transfer to [facility] tomorrow if stable. (2) Epilepsy Status: Chronic Problem Text: 11/29 - Will resume home dose Dilantin. 11/28 Dilantin is currently on hold bc his levels were increasing overnight. Will continue to trend and restart once levels start trending downwards. (3) Depression Status: Chronic Problem Text: 11/29 - I was able to interview him with his present today. They are going through a separation because of "trust issues" on her part. She is working to help him get set up in his own environment. She works at [employer] and is watching out for him through the process. It does seem that this is likely part of the reason his depression has become worse and possibly why he attempted suicide. 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 -Wellbutrin held 11/05 to possible OD -TSH WNL -Transfer to [facility] once clinically stable Plan/VTE VTE Prophylaxis Ordered?: Yes (Lovenox) Plan Diagnostics: Check Labs, Repeat Labs in AM, EKG Disposition I anticipate he will be discharged from the acute care facility and admitted to the inpatient mental health unit tomorrow. VS, I&O, 24H, Fishbone Vital Signs/I&O Vital Signs Date Time Temp Pulse Resp B/P Pulse Ox O2 Delivery O2 Flow Rate FiO2 11/29/16 08:00 97.2 62 18 114/62 98 Room Air I&O- Last 24 Hours up to 6 AM 11/29/16 06:00 Intake Total 840 ml Output Total 1550 ml Balance -710 ml Laboratory Data 24H LABS Laboratory Tests 2 11/28/16 21:17: Anion Gap 6L, Blood Urea Nitrogen 16, Creatinine 0.99, Sodium Level 143, Potassium Level 4.0, Chloride Level 109H, Carbon Dioxide Level 28, Calcium Level 7.9L, Glomerular Filtration Rate > 60.0, Magnesium Level 2.1 11/29/16 04:34: Anion Gap 9, Blood Urea Nitrogen 15, Creatinine 0.92, Sodium Level 145, Potassium Level 4.1, Chloride Level 108H, Carbon Dioxide Level 28, Calcium Level 8.1L, Glomerular Filtration Rate > 60.0, Aspartate Amino Transf (AST/SGOT ) 17, Alanine Aminotransferase (ALT/SGPT) 13, Alkaline Phosphatase 81, Total Bilirubin 0.5, Total Protein 6.4, Albumin 3.5, Albumin/Globulin Ratio 1.21, White Blood Count 5.5, Red Blood Count 4.48, Hemoglobin 14.3, Hematocrit 43.1, Mean Corpuscular Volume 96.2H, Mean Corpuscular Hemoglobin 31.8, Mean Corpuscular Hemoglobin Concent 33.0, Red Cell Distribution Width 12.6, Platelet Count 256, Neutrophils (%) (Auto) 35.1L, Lymphocytes (%) (Auto) 49.5H, Monocytes (%) (Auto) 9.3H, Eosinophils (%) (Auto) 2.7, Basophils (%) (Auto) 0.7 , Neutrophils # (Auto) 1.9, Lymphocytes # (Auto) 2.7, Monocytes # (Auto) 0.5, Eosinophils # (Auto) 0.2, Basophils # (Auto) 0.0, Large Unclassified Cells # 0.2 , Large Unclassified Cells % 2.8, Phenytoin (Dilantin) Level 15.0, Salicylates Level 6.6, Valproic Acid (Depakene) Level < 3.0L CBC/BMP Laboratory Tests 11/28/16 21:17 Calcium Level 7.9 L 11/29/16 04:34 Calcium Level 8.1 L, Aspartate Amino Transf (AST/SGOT) 17, Alanine Aminotransferase (ALT/SGPT) 13, Alkaline Phosphatase 81, Total Bilirubin 0.5, Total Protein 6.4, Albumin 3.5, Red Blood Count 4.48, Mean Corpuscular Volume 96.2 H, Mean Corpuscular Hemoglobin 31.8, Mean Corpuscular Hemoglobin Concent 33.0, Red Cell Distribution Width 12.6, Neutrophils (%) (Auto) 35.1 L, Lymphocytes (%) (Auto) 49.5 H, Monocytes (%) (Auto) 9.3 H, Eosinophils (%) (Auto ) 2.7, Basophils (%) (Auto) 0.7, Neutrophils # (Auto) 1.9, Lymphocytes # (Auto) 2.7, Monocytes # (Auto) 0.5, Eosinophils # (Auto) 0.2, Basophils # (Auto) 0.0 THAIS EVERETT PA-C Nov 29, 2016 10:35 Frankie Tucker MD Nov 29, 2016 19:46
[2016-11-29] MEDS: PHENYTOIN ER 100 MG CAP PO SCH ×2 (11:46→20:03)
--- NOTE | 2016-11-29 14:44 | CR.PDOC ---
[facility] Consultation Consultation DATE OF CONSULTATION: 11/29/16 CONSULTATION REQUESTED BY: Hospitalist REASON FOR CONSULTATION: [Patient s/p suicide attempt by OD on Rx meds]. HISTORY OF PRESENT ILLNESS: This is a 60-year-old male with history of brain tumor which he is s/p surgery followed by radiation therapy. Pt. also history of seizure disorder related to that surgery. Positive hx for depression with 3 prior suicidal attempt, last in January 2016. Patient dealing with stressors including the ongoing divorce from his of 37 years. They still currently live under the same roof, but had given a patient an ultimatum of 12/2016 to They have been seeing psychiatrist and a counselor at [facility], as well as have been seeing a psychologist, Fili Fregoso, at [place] for the past year since his last suicidal attempt in 01/2016, this triggered by the initial break up of the marriage. Patient continues to minimize his OD, reporting he may have taken his meds twice accidentally. He has told staff prior to this interview that the OD was a suicide attempt. Patient reports significant distress from the impending divorce and homelessness. Patient reports med compliance as well as outpt MHC f/u compliance. He reports being seen for [facility] at the [facility]. He sees [facility], Dr. Haas, for seizure d/o. Patient educated Wellbutrin will be discontinued as it lowers seizure threshhold. Patient acknowledges understanding and is amenable to initiation of Zoloft for antidepressant /anxiety management. PAST PSYCHIATRIC HISTORY: Inpatient - 02/2016 [facility] s/p suicide attempt by OD. Outpt - [facility] Suicide attempt hx - x4, last prior to this admission was in 02/2016 by OD PAST MEDICAL HISTORY: 1. Brain tumor in 1990 status post surgery and radiation therapy. 2. Seizure disorder, last in 2012 per pt 3. Tremors. 4. Learning disability. 5. Depression with suicidal attempt in the past. 6. Arthritis. PERSONAL AND SOCIAL HISTORY: The patient was born and raised in [place]. Resides in: [place] Marital Status: M Children: 2 children, they are very supportive Patient denies firearms in the home SUBSTANCE ABUSE HISTORY: ETOH: Patient has a remote hx of alcohol use d/o symptoms, sober for many years Illicit Drugs: [NONE] MENTAL STATUS EXAMINATION: Patient is a [60]-year old male, who is [noticeably depressed, but cooperative, well kempt], [thin build]. Patient in NAD Speech is normal in rate, volume, and articulation, and is coherent and spontaneous]. Language skills are [intact]. Thought processes including: [clear, Goal directed]. Thought content: [logical]. Description of abnormal or psychotic thoughts: [No hallucinations, delusions, preoccupation with violence, homicidal or suicidal ideation, and obsessions]. Judgment: [ poor]. Insight: [ poor]. Orientation to [time, place and person]. Recent and remote memory: [Immediate, short-term and long-term memory is intact] . Attention span and concentration: [fair]. Language: [Normal]. Fund of knowledge: [adequate]. Mood: [ depressed]. Affect: [depressed]. DIAGNOSIS: 1. [MDD, R, S w/o PFs 2. Seizure d/o Recommendations: 1. [Patient has been deemed medically stable]. 2. [Recommend transfer to the [facility] for ongoing psychiatric eval/treatment]. 3. Recommend discontinuation of Wellbutrin as it lowers the seizure threshold. 4. Start Zoloft 50mg po qam for depression and anxiety. 5. Continue Dilantin for seizure d/o as currently written. Vital Signs Vital Signs Date Time Temp Pulse Resp B/P Pulse Ox O2 Delivery O2 Flow Rate FiO2 11/29/16 08:00 97.2 62 18 114/62 98 Room Air Laboratory Data 24H Labs Laboratory Tests 2 11/28/16 21:17: Anion Gap 6L, Blood Urea Nitrogen 16, Creatinine 0.99, Sodium Level 143, Potassium Level 4.0, Chloride Level 109H, Carbon Dioxide Level 28, Calcium Level 7.9L, Glomerular Filtration Rate > 60.0, Magnesium Level 2.1 11/29/16 04:34: Anion Gap 9, Blood Urea Nitrogen 15, Creatinine 0.92, Sodium Level 145, Potassium Level 4.1, Chloride Level 108H, Carbon Dioxide Level 28, Calcium Level 8.1L, Glomerular Filtration Rate > 60.0, Aspartate Amino Transf (AST/SGOT ) 17, Alanine Aminotransferase (ALT/SGPT) 13, Alkaline Phosphatase 81, Total Bilirubin 0.5, Total Protein 6.4, Albumin 3.5, Albumin/Globulin Ratio 1.21, White Blood Count 5.5, Red Blood Count 4.48, Hemoglobin 14.3, Hematocrit 43.1, Mean Corpuscular Volume 96.2H, Mean Corpuscular Hemoglobin 31.8, Mean Corpuscular Hemoglobin Concent 33.0, Red Cell Distribution Width 12.6, Platelet Count 256, Neutrophils (%) (Auto) 35.1L, Lymphocytes (%) (Auto) 49.5H, Monocytes (%) (Auto) 9.3H, Eosinophils (%) (Auto) 2.7, Basophils (%) (Auto) 0.7 , Neutrophils # (Auto) 1.9, Lymphocytes # (Auto) 2.7, Monocytes # (Auto) 0.5, Eosinophils # (Auto) 0.2, Basophils # (Auto) 0.0, Large Unclassified Cells # 0.2 , Large Unclassified Cells % 2.8, Phenytoin (Dilantin) Level 15.0, Salicylates Level 6.6, Valproic Acid (Depakene) Level < 3.0L Home Medications Current Medications Current Medications Aspirin (Aspirin Chewable) 81 mg DAILY PO Last administered on 11/29/16 08:56 ; Start 11/28/16 at 09:00; Stop 12/28/16 at 08:59 Enoxaparin Sodium (Lovenox) 40 mg DAILY SC Last administered on 11/29/16 08:56 ; Start 11/28/16 at 09:00; Stop 12/03/16 at 08:59 Home Med (Med Rec Complete!) ASDIRECTED XX ; Start 11/27/16 at 16:45; Stop at 16:47; Status DC Lidocaine (Lidoderm Patch) 1 patch DAILY TOP Last administered on 11/29/16 08: 55; Start 11/28/16 at 09:00; Stop 12/28/16 at 08:59 Lorazepam (Ativan) 1 mg Q4HP PRN IV agitation. Last administered on 11/28/16 09:56; Start 11/28/16 at 02:45; Stop 12/05/16 at 02:44 Metoclopramide HCl (REGLAN INJection) 10 mg Q6HP PRN IV NAUSEA OR VOMITING; Start 11/27/16 at 16:30; Stop 12/27/16 at 16:29 Nicotine (Nicoderm Cq 7 Mg) 1 patch QHS TD Last administered on 11/28/16 22:36 ; Start 11/28/16 at 21:00; Stop 12/28/16 at 20:59 Non-Formulary Medication ( See Comment Field Below ) REMOVE LIDODERM PATCH DAILY@21 XX Last administered on 11/28/16 21:00; Start 11/27/16 at 21:00; Stop 12/27/16 at 20:59 Pantoprazole Sodium (Protonix) 40 mg DAILY PO Last administered on 11/29/16 08 :56; Start 11/28/16 at 09:00; Stop 12/28/16 at 08:59 Phenytoin (Dilantin) 200 mg BID PO Last administered on 11/29/16 11:46; Start 11/29/16 at 09:00; Stop 12/29/16 at 08:59 Scheduled (Aspirin 81 Low Dose) 81 Mg Chw 81 MG PO DAILY (Reported) Bupropion HCl (Wellbutrin Sr) 200 Mg Tab 200 MG PO DAILY (Reported) Ergocalciferol (Vitamin D) 50,000 Unit Cap 50,000 UNIT PO 1XWK (Reported) WEDNESDAYS Escitalopram Oxalate (Escitalopram Oxalate) 20 Mg Tab 20 MG PO DAILY (Reported ) Lidocaine (Lidocaine) 5 % Pad 1 PATCH TOP DAILY (Reported) APPLY TO BACK Mirtazapine (Mirtazapine) 30 Mg Tab 30 MG PO QHS (Reported) Phenytoin Sodium (Dilantin) 100 Mg Cap 200 MG PO BID (Reported) Scheduled PRN Naproxen (Naproxen) 500 Mg Tab 500 MG PO BID PRN PRN PAIN (Reported) Allergies Coded Allergies: No Known Allergies (Unverified , 02/01/16) JEANIE MARTINEZ MD Nov 29, 2016 14:44
[2016-11-29 15:35] VITALS: BP 111/70
--- NOTE | 2016-11-29 18:20 | EDDOCDS ---
Physician Documentation [facility] Name: Moo Elder Age: 60 yrs Sex: Male : 1955 Arrival Date: 11/27/2016 Time: 15:00 Bed 3 Private MD: Disposition: 11/27 16:27 Critical Care:. pc Disposition: 11/27/16 16:33 Hospitalization ordered by Hailey Maharaj for Inpatient Admission. Preliminary diagnosis are Suicide attempt - by drug overdose: Wellbutrin SR, Lexapro, Major depressive disorder, recurrent, moderate. - Bed requested for PCU. - Status is Inpatient Admission. bcj - Condition is Stable. - Problem is new. - Symptoms have improved. HPI: 15:11 This 60 yrs old Male presents to ER with complaints of Suicidal Ideation, pc Possible Overdose. 15:11 The history is obtained from the patient, transfer records. The patient presents to the emergency department with suicidal ideation, depression, intentional drug overdose. The patient's intention was to commit suicide. At their worst, the symptoms were severe. In the emergency department, the symptoms are unchanged. He presented to his Psychiatrist appointment today and was noted to be slurring his words and unsteady on his feet. He admitted to taking some of his pills (which includes Wellbutrin, Lexapro, Dilantin) as an overdose to commit suicide. He was sent on legal papers via EMS. 15:14 The patient has experienced a previous episode, approximately 10 months ago, and the pc symptoms today are exactly the same. Historical: - Allergies: no known allergies; - Home Meds: 1. Wellbutrin SR 200 mg Oral TbER 1 tab 2 times per day (Last dose: Unknown) 2. citalopram 20 mg Oral tab 1 tab once daily (Last dose: Unknown) 3. aspirin 81 mg Oral TbEC 1 tab once daily (Last dose: Unknown) 4. Dilantin 200mg Oral cap twice a day (Last dose: Unknown) 5. mirtazapine 30 mg Oral tab 1 tab once daily (Last dose: Unknown) - PMHx: Arthritis; brain tumor (1989); Depression; Seizure Disorder; tremors; - PSHx: brain tumor (1990); jaw; - The history from nurses notes was reviewed: but there are no nursing notes, or only partial notes available at the time of my charting. - Social history: Smoking status: Patient uses tobacco products, heavy tobacco smoker. No barriers to communication noted, Speaks appropriately for age. - Hospitalizations: : No recent hospitalization is reported. - : The pt / caregiver states he / she is not on anticoagulants. Home medication list is obtained from the patient. - Immunization history:: All immunizations up-to-date. - Exposure Risk Screening:: None identified. - Family history: Not pertinent. - Social history:: the patient smokes cigarettes the patient drinks alcohol. ROS: 15:14 All systems are negative except as listed. The psychiatric and neurological components pc are also addressed in the HPI. Exam: 15:14 General Appearance: alert, no acute distress. pc 15:14 ENT: ear, nose and throat normal, pharynx normal. 15:14 Eyes: pupils equal, round and reactive to light, extraocular motions intact. 15:14 Neck: The exam reveals no acute abnormalities. ROM is normal and painless. No nuchal rigidity is noted.. 15:14 Respiratory: breathing is even and unlabored, breath sounds are normal. 15:14 Cardiovascular: regular pulse rate, regular heart rhythm, normal heart sounds, equal and full pulses bilaterally. 15:14 Abdomen: soft, non-tender, no organomegaly, normal bowel sounds. 15:14 Skin: skin color is normal, warm, dry. 15:14 Extremities: The extremities have a grossly normal appearance, are non-tender, without acute ROM abnormalities. 15:14 Neuro: alert, oriented to person, place and time, cranial nerves normal as tested, no motor deficits, no sensory deficits, thick speech. 15:14 Psych: 15:14 Psych: mood is depressed, suicidal, affect is flat. Vital Signs: 15:06 BP 112 / 61 (auto/); ml6 15:07 Pulse 90 MON; Resp 16; Temp 98.9(O); Pulse Ox 98% on R/A; Weight 74.84 kg / 164.99 lbs ml6 (R); Height 5 ft. 8 in. (172.72 cm) (R); Pain 0/10; 15:15 BP 112 / 63 (auto/); ml6 15:15 Pulse 93 MON; Resp 16; Pulse Ox 96% on R/A; Pain 0/10; ml6 15:30 BP 111 / 63 (auto/); ml6 15:30 Pulse 90 MON; Resp 16; Pulse Ox 95% on R/A; ml6 15:45 BP 114 / 60 (auto/); ml6 15:45 Pulse 92 MON; Resp 16; Pulse Ox 97% on R/A; ml6 16:00 BP 99 / 58 (auto/); ml6 16:00 Pulse 88 MON; Resp 16; Pulse Ox 95% on R/A; Pain 0/10; ml6 16:15 BP 107 / 56 (auto/); bcj 16:15 BP 102 / 61; Pulse 80; Resp 16; Temp 98.8(O); Pulse Ox 98% on R/A; Pain 0/10; bcj 16:15 Pulse 87 MON; Resp 16; Pulse Ox 95% on R/A; bcj 16:30 BP 107 / 58 (auto/); bcj 16:30 Pulse 85 MON; Resp 16; Pulse Ox 95% on R/A; Pain 0/10; bcj 16:49 BP 95 / 54 (auto/); bcj 16:49 Pulse 86 MON; Resp 16; Pulse Ox 95% on R/A; bcj 15:07 Body Mass Index 25.09 (74.84 kg, 172.72 cm) ml6 MDM: 15:08 Activated Charcoal (1g/kg) Suspension 50 grams PO once ordered. pc 15:08 Consult PFS/PSA/Cement Truck Driver ordered. pc 15:08 Consult PFS/PSA/Cement Truck Driver: Patient's case requires discussion with on-call pc Psychiatrist ordered. 15:08 PSA/PFS to call Nursing 7Th Grade Teacher, to enter patient data on [place] Safe Act if patient pc involuntarily admitted or transferred for SI or HI ordered. 15:08 Call Poison Control ordered. pc 15:08 Control Equipment Electrician/Pulse Ox/q 15 min VS ordered. pc 15:08 Confirm accurate psychiatric medication list and times of last dosage ordered. pc 15:08 Detain Pt Until Medically/PFS Cleared ordered. pc 15:08 IV Saline Lock ordered. pc 15:08 Acetaminophen Level Ordered. EDMS 15:08 Basic Metabolic Profile Ordered. EDMS 15:08 Complete Blood Count Ordered. EDMS 15:08 Drug Eval Toxicology ED Only Ordered. EDMS 15:08 Ethyl Alcohol (ethanol) Ordered. EDMS 15:08 Liver Profile Ordered. EDMS 15:08 Salicylate Level Ordered. EDMS 15:08 Thyroid Stimulating Hormone Ordered. EDMS 15:08 ECG WITH READING ER PHYS+CARDIAG ordered. EDMS 15:14 Differential diagnosis: depression, suicide attempt, intentional drug overdose. Plan: pc labs, EKG, Poison Control, PFS. 15:30 Test interpretation: EKG. pc 15:43 NS 0.9% 1000 ml IV at 100 mL/hr continuous ordered. pc 15:52 PHENYTOIN Ordered. EDMS 16:20 Financial registration complete. kf3 16:20 Acetaminophen Level Reviewed. pc 16:20 Basic Metabolic Profile Reviewed. pc 16:20 Complete Blood Count Reviewed. pc 16:20 Drug Eval Toxicology ED Only Reviewed. pc 16:20 Ethyl Alcohol (ethanol) Reviewed. pc 16:20 Liver Profile Reviewed. pc 16:20 Salicylate Level Reviewed. pc 16:20 Thyroid Stimulating Hormone Reviewed. pc 16:20 PHENYTOIN Reviewed. pc 16:22 BED REQUEST+ADM ordered. EDMS 16:27 [place] Safe Act reporting: The patient poses a significant risk to self or others, and pc PSA/PFS has notified the Nursing 7Th Grade Teacher and he/she will complete the required data warehousing manager. Data reviewed: old medical records, vital signs, nurses notes, EKG(s), lab test results. Test interpretation: LAB - all labs as ordered have been reviewed, interpreted and considered in the overall management of the clinical presentation;. The patient has been re-examined and re-evaluated. The patient's symptoms have mildly improved after treatment. Other consultation: Poison control, instructed to admit patient. 16:27 Physician consultation: Dr. Hailey Maharaj was contacted at 16:28, regarding admission. pc Disposition: The historical points, examination findings, and any diagnostic results supporting the provided diagnosis, were discussed with the patient or legal guardian. The need for further work-up and/or treatment in the hospital was explained. 16:31 Admission / Observation Status ordered. EDMS 16:31 REGULAR DIET ordered. EDMS 16:37 [facility] Payment Agreement was scanned into [employer] and attached to record. zo EC:30 Rate is 89 beats/min. Rhythm is regular, Normal Sinus Rhythm. QRS [place] is Normal. IN pc interval is normal. QRS interval is normal. QT interval is normal. No Q waves. T waves are Normal. ST Segment is depressed in leads V4, V5, V6. Clinical impression: Normal Sinus Rhythm and Nonspecific ST-T changes. Administered Medications: 15:28 Drug: Activated Charcoal (1g/kg) 50 grams [activated charcoal 25 gram/120 mL oral ml6 suspension (4800 drps)] Route: PO; 15:46 Drug: NS 0.9% 1000 ml [sodium chloride 0.9 % intravenous solution] Route: IV; Rate: 100 ml6 mL/hr; Site: left antecubital; Critical Care Time: 16:27 Critical care time: Bedside Care: 30 minutes, Consultation: 10 minutes. Total time: 40 pc minutes Signatures: Dispatcher [employer] EDMS Sebastián Miller MD MD pc Johnson, Bruce, RN RN Randal Guaman Kris, Reg Reg kf3 Philippe Foote RN RN ml6 Spenser England RN RN mts The chart was reviewed and I authenticate all verbal orders and agree with the evaluation and treatment provided.Corrections: (The following items were deleted from the chart) 15:23 15:11 He presented to his Psychiatrist appointment today and was noted to be slurring pc his words and unsteady on his feet. He admitted to taking some of his pills as an overdose to commit suicide. He was sent on l;egal papers via EMS pc 15:51 15:24 PHENYTOIN (DILANTIN)+LAB ordered. EDUT EDMS Attachments: 16:37 [facility] Payment Agreement zo Chart Complete MTDD
--- NOTE | 2016-11-29 18:20 | EDDOCDS ---
Physician Documentation [facility] Name: Moo Elder Age: 60 yrs Sex: Male : 1955 Arrival Date: 11/27/2016 Time: 15:00 Bed 3 Private MD: Disposition: 11/27 16:27 Critical Care:. pc Disposition: 11/27/16 16:33 Hospitalization ordered by Hailey Maharaj for Inpatient Admission. Preliminary diagnosis are Suicide attempt - by drug overdose: Wellbutrin SR, Lexapro, Major depressive disorder, recurrent, moderate. - Bed requested for PCU. - Status is Inpatient Admission. bcj - Condition is Stable. - Problem is new. - Symptoms have improved. HPI: 15:11 This 60 yrs old Male presents to ER with complaints of Suicidal Ideation, pc Possible Overdose. 15:11 The history is obtained from the patient, transfer records. The patient presents to the emergency department with suicidal ideation, depression, intentional drug overdose. The patient's intention was to commit suicide. At their worst, the symptoms were severe. In the emergency department, the symptoms are unchanged. He presented to his Psychiatrist appointment today and was noted to be slurring his words and unsteady on his feet. He admitted to taking some of his pills (which includes Wellbutrin, Lexapro, Dilantin) as an overdose to commit suicide. He was sent on legal papers via EMS. 15:14 The patient has experienced a previous episode, approximately 10 months ago, and the pc symptoms today are exactly the same. Historical: - Allergies: no known allergies; - Home Meds: 1. Wellbutrin SR 200 mg Oral TbER 1 tab 2 times per day (Last dose: Unknown) 2. citalopram 20 mg Oral tab 1 tab once daily (Last dose: Unknown) 3. aspirin 81 mg Oral TbEC 1 tab once daily (Last dose: Unknown) 4. Dilantin 200mg Oral cap twice a day (Last dose: Unknown) 5. mirtazapine 30 mg Oral tab 1 tab once daily (Last dose: Unknown) - PMHx: Arthritis; brain tumor (1989); Depression; Seizure Disorder; tremors; - PSHx: brain tumor (1990); jaw; - The history from nurses notes was reviewed: but there are no nursing notes, or only partial notes available at the time of my charting. - Social history: Smoking status: Patient uses tobacco products, heavy tobacco smoker. No barriers to communication noted, Speaks appropriately for age. - Hospitalizations: : No recent hospitalization is reported. - : The pt / caregiver states he / she is not on anticoagulants. Home medication list is obtained from the patient. - Immunization history:: All immunizations up-to-date. - Exposure Risk Screening:: None identified. - Family history: Not pertinent. - Social history:: the patient smokes cigarettes the patient drinks alcohol. ROS: 15:14 All systems are negative except as listed. The psychiatric and neurological components pc are also addressed in the HPI. Exam: 15:14 General Appearance: alert, no acute distress. pc 15:14 ENT: ear, nose and throat normal, pharynx normal. 15:14 Eyes: pupils equal, round and reactive to light, extraocular motions intact. 15:14 Neck: The exam reveals no acute abnormalities. ROM is normal and painless. No nuchal rigidity is noted.. 15:14 Respiratory: breathing is even and unlabored, breath sounds are normal. 15:14 Cardiovascular: regular pulse rate, regular heart rhythm, normal heart sounds, equal and full pulses bilaterally. 15:14 Abdomen: soft, non-tender, no organomegaly, normal bowel sounds. 15:14 Skin: skin color is normal, warm, dry. 15:14 Extremities: The extremities have a grossly normal appearance, are non-tender, without acute ROM abnormalities. 15:14 Neuro: alert, oriented to person, place and time, cranial nerves normal as tested, no motor deficits, no sensory deficits, thick speech. 15:14 Psych: 15:14 Psych: mood is depressed, suicidal, affect is flat. Vital Signs: 15:06 BP 112 / 61 (auto/); ml6 15:07 Pulse 90 MON; Resp 16; Temp 98.9(O); Pulse Ox 98% on R/A; Weight 74.84 kg / 164.99 lbs ml6 (R); Height 5 ft. 8 in. (172.72 cm) (R); Pain 0/10; 15:15 BP 112 / 63 (auto/); ml6 15:15 Pulse 93 MON; Resp 16; Pulse Ox 96% on R/A; Pain 0/10; ml6 15:30 BP 111 / 63 (auto/); ml6 15:30 Pulse 90 MON; Resp 16; Pulse Ox 95% on R/A; ml6 15:45 BP 114 / 60 (auto/); ml6 15:45 Pulse 92 MON; Resp 16; Pulse Ox 97% on R/A; ml6 16:00 BP 99 / 58 (auto/); ml6 16:00 Pulse 88 MON; Resp 16; Pulse Ox 95% on R/A; Pain 0/10; ml6 16:15 BP 107 / 56 (auto/); bcj 16:15 BP 102 / 61; Pulse 80; Resp 16; Temp 98.8(O); Pulse Ox 98% on R/A; Pain 0/10; bcj 16:15 Pulse 87 MON; Resp 16; Pulse Ox 95% on R/A; bcj 16:30 BP 107 / 58 (auto/); bcj 16:30 Pulse 85 MON; Resp 16; Pulse Ox 95% on R/A; Pain 0/10; bcj 16:49 BP 95 / 54 (auto/); bcj 16:49 Pulse 86 MON; Resp 16; Pulse Ox 95% on R/A; bcj 15:07 Body Mass Index 25.09 (74.84 kg, 172.72 cm) ml6 MDM: 15:08 Activated Charcoal (1g/kg) Suspension 50 grams PO once ordered. pc 15:08 Consult PFS/PSA/Laboratory Scientist ordered. pc 15:08 Consult PFS/PSA/Laboratory Scientist: Patient's case requires discussion with on-call pc Psychiatrist ordered. 15:08 PSA/PFS to call Nursing Director Report, to enter patient data on [place] Safe Act if patient pc involuntarily admitted or transferred for SI or HI ordered. 15:08 Call Poison Control ordered. pc 15:08 Sack Sewer Machine/Pulse Ox/q 15 min VS ordered. pc 15:08 Confirm accurate psychiatric medication list and times of last dosage ordered. pc 15:08 Detain Pt Until Medically/PFS Cleared ordered. pc 15:08 IV Saline Lock ordered. pc 15:08 Acetaminophen Level Ordered. EDMS 15:08 Basic Metabolic Profile Ordered. EDMS 15:08 Complete Blood Count Ordered. EDMS 15:08 Drug Eval Toxicology ED Only Ordered. EDMS 15:08 Ethyl Alcohol (ethanol) Ordered. EDMS 15:08 Liver Profile Ordered. EDMS 15:08 Salicylate Level Ordered. EDMS 15:08 Thyroid Stimulating Hormone Ordered. EDMS 15:08 ECG WITH READING ER PHYS+CARDIAG ordered. EDMS 15:14 Differential diagnosis: depression, suicide attempt, intentional drug overdose. Plan: pc labs, EKG, Poison Control, PFS. 15:30 Test interpretation: EKG. pc 15:43 NS 0.9% 1000 ml IV at 100 mL/hr continuous ordered. pc 15:52 PHENYTOIN Ordered. EDMS 16:20 Financial registration complete. kf3 16:20 Acetaminophen Level Reviewed. pc 16:20 Basic Metabolic Profile Reviewed. pc 16:20 Complete Blood Count Reviewed. pc 16:20 Drug Eval Toxicology ED Only Reviewed. pc 16:20 Ethyl Alcohol (ethanol) Reviewed. pc 16:20 Liver Profile Reviewed. pc 16:20 Salicylate Level Reviewed. pc 16:20 Thyroid Stimulating Hormone Reviewed. pc 16:20 PHENYTOIN Reviewed. pc 16:22 BED REQUEST+ADM ordered. EDMS 16:27 [place] Safe Act reporting: The patient poses a significant risk to self or others, and pc PSA/PFS has notified the Nursing Director Report and he/she will complete the required data warehouse manager. Data reviewed: old medical records, vital signs, nurses notes, EKG(s), lab test results. Test interpretation: LAB - all labs as ordered have been reviewed, interpreted and considered in the overall management of the clinical presentation;. The patient has been re-examined and re-evaluated. The patient's symptoms have mildly improved after treatment. Other consultation: Poison control, instructed to admit patient. 16:27 Physician consultation: Dr. Hailey Maharaj was contacted at 16:28, regarding admission. pc Disposition: The historical points, examination findings, and any diagnostic results supporting the provided diagnosis, were discussed with the patient or legal guardian. The need for further work-up and/or treatment in the hospital was explained. 16:31 Admission / Observation Status ordered. EDMS 16:31 REGULAR DIET ordered. EDMS 16:37 [facility] [place] was [place] into [employer] and attached to record. zo EC:30 Rate is 89 beats/min. Rhythm is regular, Normal Sinus Rhythm. QRS Randolph is Normal. ID pc interval is normal. QRS interval is normal. QT interval is normal. No Q waves. T waves are Normal. ST Segment is depressed in leads V4, V5, V6. Clinical impression: Normal Sinus Rhythm and Nonspecific ST-T changes. Administered Medications: 15:28 Drug: Activated Charcoal (1g/kg) 50 grams [activated charcoal 25 gram/120 mL oral ml6 suspension (4800 drps)] Route: PO; 15:46 Drug: NS 0.9% 1000 ml [sodium chloride 0.9 % intravenous solution] Route: IV; Rate: 100 ml6 mL/hr; Site: left antecubital; Critical Care Time: 16:27 Critical care time: Bedside Care: 30 minutes, Consultation: 10 minutes. Total time: 40 pc minutes Signatures: Dispatcher [employer] EDMS Sebastián Miller MD MD pc Johnson, Bruce, RN RN Randal Guaman Kris, Reg Reg kf3 Philippe Fotoe RN RN ml6 Spenser England RN RN mts The chart was reviewed and I authenticate all verbal orders and agree with the evaluation and treatment provided.Corrections: (The following items were deleted from the chart) 15:23 15:11 He presented to his Psychiatrist appointment today and was noted to be slurring pc his words and unsteady on his feet. He admitted to taking some of his pills as an overdose to commit suicide. He was sent on l;egal papers via EMS pc 15:51 15:24 PHENYTOIN (DILANTIN)+LAB ordered. EDOK EDMS Attachments: 16:37 [facility] [place] zo Chart Complete MTDD
--- NOTE | 2016-11-29 18:20 | EDDOCDS ---
Nurse's Notes [facility] Name: Moo Elder Age: 60 yrs Sex: Male : 1955 Arrival Date: 11/27/2016 Time: 15:00 Bed 3 Private MD: Diagnosis: Suicide attempt-by drug overdose: Wellbutrin SR, Lexapro;Major depressive disorder, recurrent, moderate Presentation: 11/27 15:05 Presenting complaint: Patient states: states that he took 8-9 of his pills in hopes ml6 that he would . Mental Health Triage Level: Level 2: The patient displays active suicidal ideations. Adult Sepsis Screening: The patient does not have new or worsening altered mentation. Patient's respiratory rate is less than 22. Systolic blood pressure is greater than 100. Patient has a qSOFA score of 0- Negative Sepsis Screen. Suicide/Homicide risk assessment- The patient admits to and/or has been reported to be having suicidal ideations. Status: Patient is not a academic services coordinator or dependent. Transition of care: patient was received from a primary care office; . 15:05 Acuity: SRIKANTH Level 2 ml6 15:05 Method Of Arrival: Ambulance ml6 Triage Assessment: 15:05 General: Appears in no apparent distress, Behavior is appropriate for age, cooperative. ml6 Pain: Denies pain. HIV screening NA for this visit Offered previously. The patient is triaged at the bedside. See Assessment in Nurses Notes section of ED record. Neurological: Level of Consciousness is awake, alert, Oriented to person, place, time, Cross Tie Tram Loader are equal bilaterally Moves all extremities. Full function Gait is steady, Speech is normal, Facial symmetry appears normal, Pupils are PERRLA. Cardiovascular: No deficits noted. Capillary refill < 3 seconds is brisk in bilateral fingers toes Heart tones S1 S2 present. Respiratory: No deficits noted. Airway is patent Respiratory effort is even, unlabored, Respiratory pattern is regular, symmetrical. GI: No deficits noted. Abdomen is flat, non- distended Bowel sounds present X 4 quads. Historical: - Allergies: no known allergies; - Home Meds: 1. Wellbutrin SR 200 mg Oral TbER 1 tab 2 times per day (Last dose: Unknown) 2. citalopram 20 mg Oral tab 1 tab once daily (Last dose: Unknown) 3. aspirin 81 mg Oral TbEC 1 tab once daily (Last dose: Unknown) 4. Dilantin 200mg Oral cap twice a day (Last dose: Unknown) 5. mirtazapine 30 mg Oral tab 1 tab once daily (Last dose: Unknown) - PMHx: Arthritis; brain tumor (1989); Depression; Seizure Disorder; tremors; - PSHx: brain tumor (1990); jaw; - The history from nurses notes was reviewed: but there are no nursing notes, or only partial notes available at the time of my charting. - Social history: Smoking status: Patient uses tobacco products, heavy tobacco smoker. No barriers to communication noted, Speaks appropriately for age. - Hospitalizations: : No recent hospitalization is reported. - : The pt / caregiver states he / she is not on anticoagulants. Home medication list is obtained from the patient. - Immunization history:: All immunizations up-to-date. - Exposure Risk Screening:: None identified. - Family history: Not pertinent. - Social history:: the patient smokes cigarettes the patient drinks alcohol. Screenin:33 Screening information is obtained from the patient. Fall risk: No risks identified. ml6 Assistance ADL's: requires no assistance with activities of daily living. Abuse/DV Screen: The patient / caregiver reports he/she is: not in a situation that causes fear, pain or injury. Nutritional screening: No deficits noted. Advance Directives: Currently, there is no health care proxy. home support is adequate. Assessment: 15:05 General: see triage assessment. ml6 15:42 General: per Terrie at poison control 24 hour OBS and IVF. ml6 16:13 General: patient pulled out IV, states "I thought it would be fun to do", new 18g PIV ml6 restarted in left FA. 17:16 General: Appears in no apparent distress, comfortable. Pain: Denies pain. Neurological: bcj No deficits noted. Level of Consciousness is awake, alert, Oriented to person, place, time. Cardiovascular: No deficits noted. Capillary refill < 3 seconds is brisk in bilateral fingers toes. Respiratory: No deficits noted. Airway is patent Respiratory effort is even, unlabored, Respiratory pattern is regular, symmetrical, Breath sounds are clear bilaterally. GI: No deficits noted. Vital Signs: 15:06 BP 112 / 61 (auto/); ml6 15:07 Pulse 90 MON; Resp 16; Temp 98.9(O); Pulse Ox 98% on R/A; Weight 74.84 kg (R); Height 5 ml6 ft. 8 in. (172.72 cm) (R); Pain 0/10; 15:15 BP 112 / 63 (auto/); ml6 15:15 Pulse 93 MON; Resp 16; Pulse Ox 96% on R/A; Pain 0/10; ml6 15:30 BP 111 / 63 (auto/); ml6 15:30 Pulse 90 MON; Resp 16; Pulse Ox 95% on R/A; ml6 15:45 BP 114 / 60 (auto/); ml6 15:45 Pulse 92 MON; Resp 16; Pulse Ox 97% on R/A; ml6 16:00 BP 99 / 58 (auto/); ml6 16:00 Pulse 88 MON; Resp 16; Pulse Ox 95% on R/A; Pain 0/10; ml6 16:15 BP 107 / 56 (auto/); bcj 16:15 BP 102 / 61; Pulse 80; Resp 16; Temp 98.8(O); Pulse Ox 98% on R/A; Pain 0/10; bcj 16:15 Pulse 87 MON; Resp 16; Pulse Ox 95% on R/A; bcj 16:30 BP 107 / 58 (auto/); bcj 16:30 Pulse 85 MON; Resp 16; Pulse Ox 95% on R/A; Pain 0/10; bcj 16:49 BP 95 / 54 (auto/); bcj 16:49 Pulse 86 MON; Resp 16; Pulse Ox 95% on R/A; bcj 15:07 Body Mass Index 25.09 (74.84 kg, 172.72 cm) ml6 Vitals: 15:30 Log In Time N/A - ambulance arrival. ml6 ED Course: 15:01 Patient visited by Avila Campos PCA. jrd 15:01 Patient moved to Waiting jrd 15:02 Philippe Foote, MEGAN is Primary Nurse. jrd 15:02 Sebastián Miller MD is Attending Physician. pc 15:02 Patient moved to 3 jrd 15:05 The patient / caregiver is instructed regarding the plan of care and ED course. Cardiac ml6 monitor on. Pulse ox on. NIBP on. 15:05 Inserted peripheral IV: 18gauge IV in left antecubital area and blood collected. ml6 Patient tolerated the procedure well. Labs drawn. (by ED staff). Sent per order to lab. 15:06 Patient visited by Sebastián Miller MD. pc 15:30 Triage Initiated ml6 15:31 Patient visited by Avila Campos PCA. jrd 15:31 EKG done. (by ED staff). Reviewed by Sebastián Miller MD. jrd 16:04 Patient visited by Philippe Foote RN. ml6 16:13 PHENYTOIN Sent. pc 16:33 Hailey Maharaj is Hospitalizing Provider. pc 16:37 [facility] Payment Agreement was scanned into [employer] and attached to record. zo 16:39 Patient name changed from Moo\\S\\\\S\\Baszto\\S\\ to Moo\\S\\ \\S\\Baszto. EDMS 17:18 No procedures done that require assistance. bcj Administered Medications: 15:28 Drug: Activated Charcoal (1g/kg) 50 grams [activated charcoal 25 gram/120 mL oral ml6 suspension (4800 drps)] Route: PO; 15:46 Drug: NS 0.9% 1000 ml [sodium chloride 0.9 % intravenous solution] Route: IV; Rate: 100 ml6 mL/hr; Site: left antecubital; Order Results: Lab Order: Acetaminophen Level; SPEC'M 11/27/16 15:18 Test: ACETAMINOPHEN LEVEL; Value: < 2.0; Range: 10.0-30.0; Abnormal: Below low normal; Units: UG/ML; Status: F Lab Order: Basic Metabolic Profile; SPEC'M 11/27/16 15:18 Test: GLUCOSE, FASTING; Value: 124; Range: 70-105; Abnormal: Above high normal; Units: MG/DL; Status: F Test: BLOOD UREA NITROGEN; Value: 21; Range: 7-18; Abnormal: Above high normal; Units: MG/DL; Status: F Test: CREATININE FOR GFR; Value: 1.30; Range: 0.70-1.30; Units: MG/DL; Status: F Test: GLOMERULAR FILTRATION RATE; Value: > 60.0; Range: >56; Status: F Test: SODIUM LEVEL; Value: 139; Range: 136-145; Units: MEQ/L; Status: F Test: POTASSIUM SERUM; Value: 4.0; Range: 3.5-5.1; Units: MEQ/L; Status: F Test: CHLORIDE LEVEL; Value: 105; Range: 98-107; Units: MEQ/L; Status: F Test: CARBON DIOXIDE LEVEL; Value: 23; Range: 21-32; Units: MEQ/L; Status: F Test: ANION GAP; Value: 11; Range: 8-16; Units: MEQ/L; Status: F Test: CALCIUM LEVEL; Value: 7.9; Range: 8.5-10.1; Abnormal: Below low normal; Units: MG/DL; Status: F Test Note: ; Units are mL/min/1.73 m2 Chronic Kidney Disease Staging per NKF: Stage I & II GFR >=60 Normal to Mildly Decreased Stage III GFR 30-59 Moderately Decreased Stage IV GFR 15-29 Severely Decreased Stage V GFR <15 Very Little GFR Left ESRD GFR <15 on MANAGER GLOBAL Lab Order: Complete Blood Count; [facility]' 11/27/16 15:18 Test: WHITE BLOOD COUNT; Value: 6.2; Range: 4.0-10.0; Units: K/mm3; Status: F Test: RED BLOOD COUNT; Value: 3.97; Range: 4.30-6.10; Abnormal: Below low normal; Units: M/mm3; Status: F Test: HEMOGLOBIN; Value: 12.9; Range: 14.0-18.0; Abnormal: Below low normal; Units: g/dl; Status: F Test: HEMATOCRIT; Value: 37.7; Range: 42.0-52.0; Abnormal: Below low normal; Units: %; Status: F Test: MEAN CORPUSCULAR VOLUME; Value: 95.0; Range: 80.0-96.0; Units: fl; Status: F Test: MEAN CORPUSCULAR HEMOGLOBIN; Value: 32.4; Range: 27.0-33.0; Units: pg; Status: F Test: MEAN CORPUSCULAR HGB CONC; Value: 34.2; Range: 32.0-36.5; Units: g/dl; Status: F Test: RED CELL DISTRIBUTION WIDTH; Value: 12.6; Range: 11.5-14.5; Units: %; Status: F Test: PLATELET COUNT, AUTOMATED; Value: 231; Range: 150-450; Units: k/mm3; Status: F Lab Order: Drug Eval Toxicology ED Only; SPEC'M 11/27/16 15:18 Test: AMPHETAMINES LEVEL URINE; Value: NEGATIVE; Range: NEGATIVE; Status: F Test: BARBITURATES URINE; Value: NEGATIVE; Range: NEGATIVE; Status: F Test: BENZODIAZEPINES URINE; Value: NEGATIVE; Range: NEGATIVE; Status: F Test: CANNABINOIDS URINE; Value: NEGATIVE; Range: NEGATIVE; Status: F Test: COCAINE METABOLITE URINE; Value: NEGATIVE; Range: NEGATIVE; Status: F Test: METHADONE URINE; Value: NEGATIVE; Range: NEGATIVE; Status: F Test: OPIATES URINE; Value: NEGATIVE; Range: NEGATIVE; Status: F Test: TRICYCLIC ANTIDEPRESS URINE; Value: NEGATIVE; Range: NEGATIVE; Status: F Test Note: ; ALL PRESUMPTIVE POSITIVE FINDINGS ARE UNCONFIRMED NORMAL VALUES THRESHOLD IN NG/ML AMPHETAMINES 1000 METHAMPHETAMINES 1000 BARBITURATES 300 BENZODIAZEPINES 300 CANNABINOIDS (THC) 50 COCAINE METABOLITE 300 METHADONE 300 OPIATES 300 PHENCYCLIDINE 25 TRICYCLIC ANTIDEPRESSANTS 1000 RESULTS ARE FOR MEDICAL PURPOSES ONLY. ALL URINE SPECIMENS WILL BE SAVED FOR 3 DAYS. IF CONFIRMATION OF A PRESUMPTIVE POSTIVE SCREEN RESULT IS DESIRED, CALL CHEMISTRY ([phone]) AND REQUEST URINE TO BE SENT TO REFERENCE LAB. FOR A LIST OF CLOSELY RELATED COMPOUNDS PLEASE CALL THE LAB. Lab Order: Ethyl Alcohol (ethanol); SPEC'M 11/27/16 15:18 Test: ETHYL ALCOHOL (ETHANOL); Value: < 0.003; Range: 0.000-0.010; Units: %; Status: F Lab Order: Liver Profile; SPEC'M 11/27/16 15:18 Test: AST/SGOT; Value: 21; Range: 15-37; Units: U/L; Status: F Test: ALT/SGPT; Value: 18; Range: 12-78; Units: U/L; Status: F Test: ALKALINE PHOSPHATASE; Value: 78; Range: 45-117; Units: U/L; Status: F Test: BILIRUBIN,TOTAL; Value: 0.6; Range: 0.2-1.0; Units: MG/DL; Status: F Test: BILIRUBIN,DIRECT; Value: 0.1; Range: 0.0-0.2; Units: MG/DL; Status: F Test: TOTAL PROTEIN; Value: 6.4; Range: 6.4-8.2; Units: GM/DL; Status: F Test: ALBUMIN; Value: 3.9; Range: 3.2-5.2; Units: GM/DL; Status: F Test: ALBUMIN/GLOBULIN RATIO; Value: 1.56; Range: 1.00-1.93; Status: F Lab Order: Salicylate Level; SPEC'M 11/27/16 15:18 Test: SALICYLATE LEVEL; Value: 6.7; Range: 5.0-30.0; Units: MG/DL; Status: F Lab Order: Thyroid Stimulating Hormone; SPEC'M 11/27/16 15:18 Test: THYROID STIMULATING HORMONE; Value: 0.377; Range: 0.358-3.740; Units: uIU/ML; Status: F Lab Order: PHENYTOIN; SPEC'M 11/27/16 15:18 Test: PHENYTOIN (DILANTIN); Value: 10.2; Range: 10.0-20.0; Units: UG/ML; Status: F Outcome: 16:33 Decision to Hospitalize by Provider. 17:18 Discharge Assessment: patient administered narcotics - no. The following High Risk [facility] Discharge criteria are identified: None. Admitted to PCU accompanied by nurse, accompanied by tech, via stretcher, on monitor, with chart. Condition: stable. No special radiology studies were completed. Property :Personal belongings accompany Pt. 17:18 Patient left the ED. [facility] Signatures: Dispatcher [employer] EDSebastián Case MD MD pc Johnson, Bruce, RN RN Randal Guaman Matthew, RN RN ml6 Avila Campos, [facility] jrd Chart Complete MTDD
[2016-11-29] MEDS: **NOTE PATIENT COMMENT** MISC XX SCH (20:04)
[2016-11-29] MEDS: NICOTINE 7 MG/24 HR TRANSDERMAL TD SCH (20:04)
[2016-11-29 22:00] VITALS: BP 105/65
[2016-11-30 06:00] VITALS: BP 109/67
[2016-11-30 07:00] LABS: BASO % 0.6 % (0.0-1.0); EOS # 0.1 K/mm3 (0.0-0.50); LARGE UNSTAINED CELL # 0.2 K/mm3 (0.0-0.4); LYMPH # 2.4 K/mm3 (1.5-4.5); LYMPH % 46.1 % (24.0-44.0); MEAN CORPUSCULAR HEMOGLOBIN 31.4 pg (27.0-33.0); MEAN CORPUSCULAR HGB CONC 32.8 g/dl (32.0-36.5); MEAN CORPUSCULAR VOLUME 95.7 fl (80.0-96.0); MONO # 0.5 K/mm3 (0.0-0.8); MONO % 9.4 % (0.0-5.0); NEUTROPHILS % 37.9 % (36.0-66.0); PLATELET COUNT, AUTOMATED 241 k/mm3 (150-450); RED CELL DISTRIBUTION WIDTH 12.5 % (11.5-14.5); WHITE BLOOD COUNT 5.2 K/mm3 (4.0-10.0)
[2016-11-30 07:18] LABS: ALBUMIN 3.2 GM/DL (3.2-5.2); ALBUMIN/GLOBULIN RATIO 1.03 (1.00-1.93); ALKALINE PHOSPHATASE 85 U/L (45-117); ALT/SGPT 13 U/L (12-78); ANION GAP 7 MEQ/L (8-16); AST/SGOT 11 U/L (15-37); BILIRUBIN,TOTAL 0.3 MG/DL (0.2-1.0); BLOOD UREA NITROGEN 18 MG/DL (7-18); CARBON DIOXIDE LEVEL 29 MEQ/L (21-32); CHLORIDE LEVEL 109 MEQ/L (98-107); CREATININE FOR GFR 1.05 MG/DL (0.70-1.30); GLOMERULAR FILTRATION RATE > 60.0 (>56); GLUCOSE, FASTING 88 MG/DL (70-105); POTASSIUM SERUM 4.3 MEQ/L (3.5-5.1); SODIUM LEVEL 145 MEQ/L (136-145); TOTAL PROTEIN 6.3 GM/DL (6.4-8.2)
[2016-11-30] MEDS: ASPIRIN 81 MG CHEW TABLET PO SCH (08:15)
[2016-11-30] MEDS: PHENYTOIN ER 100 MG CAP PO SCH (08:15)
[2016-11-30] MEDS: PANTOPRAZOLE 40MG TAB (PROTONIX) PO SCH (08:15)
[2016-11-30] MEDS: ENOXAPARIN 40 MG/0.4 ML SYRINGE (J1650) SC SCH (08:16)
[2016-11-30] MEDS: LIDOCAINE 5% (LIDODERM) PATCH TOP SCH (08:17)
[2016-11-30 14:00] VITALS: BP 111/68
--- NOTE | 2016-11-30 14:37 | DS.PDOC ---
Discharge Summary General Date of Admission Nov 27, 2016 at 16:27 Date of Discharge 11/30/16 to [facility] Primary Care Physician: ABBY FRANCISCO PA-C [facility] Attending Physician: ARIEL MAHARAJ MD Discharge Summary PROCEDURES PERFORMED DURING STAY: None. COMPLICATIONS/CHIEF COMPLAINT: Suicide Attempt DISCHARGE DIAGNOSES: 1. Major depressive disorder 2. Suicide attempt 3. Seizure disorder HISTORY OF PRESENT ILLNESS/HOSPITAL COURSE: Patient is a 60-year-old man who is admitted for evaluation after reported intentional overdose of prescription medications. He was placed on telemetry, to evaluate for cardiac arrhythmia, and evaluated by psychiatry. His tox screen was negative, however psychiatry recommended continued inpatient treatment at [facility]. Psychiatry recommended stopping patient's Wellbutrin, as patient has a history of seizures order, and is currently on high-dose Wellbutrin. Patient's hospital course was uneventful, and he was discharged to inpatient mental health. DISCHARGE MEDICATIONS: Please see below. ALLERGIES: Please see below. PHYSICAL EXAMINATION ON DISCHARGE: VITAL SIGNS: Please see below. GENERAL: Alert, sitting comfortably on the side of the bed, no acute distress HEENT: Sclerae clear, moist mucous membranes, pupils equal and reactive NECK: Supple, no thyromegaly, no cervical adenopathy CARDIOVASCULAR EXAMINATION: Regular rate and rhythm, S1, S2, no murmurs, no rubs , no gallops, no heave RESPIRATORY EXAMINATION: Clear bilaterally to auscultation, no wheezes, no rales , no rhonchi, normal work of breathing ABDOMINAL EXAMINATION: Soft, nontender, nondistended, no hepatomegaly EXTREMITIES: No edema, warm and dry, 2+ peripheral pulses SKIN: No rashes or lesions NEUROLOGICAL EXAMINATION: Alert and oriented 3, no focal deficits PSYCHIATRIC EXAMINATION: Normal mood and affect, normal speech with regular rate , rhythm, tone; denies current thoughts of self-harm LABORATORY DATA: Please see below. IMAGING: none VTE Prophylaxis ordered?: Yes DISCHARGE CONDITION: Stable DISPOSITION: Discharged to inpatient mental health ACTIVITY: As tolerated DIET: Regular ITEMS TO FOLLOWUP ON OUTPATIENT: 1. Depression DISCHARGE PLAN AND INSTRUCTIONS: 1. Patient instructed to follow-up with Abby Francisco after discharge from inpatient mental health TIME SPENT ON DISCHARGE: Greater than 30 minutes. Ariel Maharaj MD Vital Signs/I&Os Vital Signs Date Time Temp Pulse Resp B/P Pulse Ox O2 Delivery O2 Flow Rate FiO2 11/30/16 06:00 98.0 60 18 109/67 96 Room Air I&O- Last 24 Hours up to 6 AM 11/30/16 06:00 Intake Total 1560 ml Output Total 875 ml Balance 685 ml Laboratory Data Labs 24H Laboratory Tests 2 11/30/16 06:32: Blood Urea Nitrogen 18, Creatinine 1.05, Sodium Level 145, Potassium Level 4.3, Chloride Level 109H, Carbon Dioxide Level 29, Calcium Level 8.0L, Aspartate Amino Transf (AST/SGOT) 11L, Alanine Aminotransferase (ALT/SGPT) 13, Alkaline Phosphatase 85, Total Bilirubin 0.3, Total Protein 6.3L, Albumin 3.2, Albumin/ Globulin Ratio 1.03, Anion Gap 7L, White Blood Count 5.2, Red Blood Count 4.57, Hemoglobin 14.4, Hematocrit 43.8, Mean Corpuscular Volume 95.7, Mean Corpuscular Hemoglobin 31.4, Mean Corpuscular Hemoglobin Concent 32.8, Red Cell Distribution Width 12.5, Platelet Count 241, Neutrophils (%) (Auto) 37.9, Lymphocytes (%) (Auto) 46.1H, Monocytes (%) (Auto) 9.4H, Eosinophils (%) (Auto) 2.0, Basophils (%) (Auto) 0.6, Neutrophils # (Auto) 2.0, Lymphocytes # (Auto) 2.4, Monocytes # (Auto) 0.5, Eosinophils # (Auto) 0.1, Basophils # (Auto) 0.0, Glomerular Filtration Rate > 60.0, Large Unclassified Cells # 0.2, Large Unclassified Cells % 4.0, Phenytoin (Dilantin) Level 18.3, Salicylates Level 5.7 CBC/BMP Laboratory Tests 11/30/16 06:32 Calcium Level 8.0 L, Aspartate Amino Transf (AST/SGOT) 11 L, Alanine Aminotransferase (ALT/SGPT) 13, Alkaline Phosphatase 85, Total Bilirubin 0.3, Total Protein 6.3 L, Albumin 3.2, Red Blood Count 4.57, Mean Corpuscular Volume 95.7, Mean Corpuscular Hemoglobin 31.4, Mean Corpuscular Hemoglobin Concent 32.8 , Red Cell Distribution Width 12.5, Neutrophils (%) (Auto) 37.9, Lymphocytes (% ) (Auto) 46.1 H, Monocytes (%) (Auto) 9.4 H, Eosinophils (%) (Auto) 2.0, Basophils (%) (Auto) 0.6, Neutrophils # (Auto) 2.0, Lymphocytes # (Auto) 2.4, Monocytes # (Auto) 0.5, Eosinophils # (Auto) 0.1, Basophils # (Auto) 0.0 Medications Scheduled (Aspirin 81 Low Dose) 81 Mg Chw 81 MG PO DAILY (Reported) Ergocalciferol (Vitamin D) 50,000 Unit Cap 50,000 UNIT PO 1XWK (Reported) WEDNESDAYS Escitalopram Oxalate (Escitalopram Oxalate) 20 Mg Tab 20 MG PO DAILY (Reported ) Lidocaine (Lidocaine) 5 % Pad 1 PATCH TOP DAILY (Reported) APPLY TO BACK Mirtazapine (Mirtazapine) 30 Mg Tab 30 MG PO QHS (Reported) Phenytoin Sodium (Dilantin) 100 Mg Cap 200 MG PO BID (Reported) Scheduled PRN Naproxen (Naproxen) 500 Mg Tab 500 MG PO BID PRN PRN PAIN (Reported) Allergies Coded Allergies: No Known Allergies (Unverified , 02/01/16) ARIEL MAHARAJ MD Nov 30, 2016 14:37
[2016-11-30 15:33] VITALS: BP 108/64
== END 2016-11-30 16:05 ==
LOC: M ED 15:00 → M ED INP 16:27 → M PCU 17:25 → M MS5PR 11-29 15:11
PROVIDERS: ADMIT Internal Medicine Nephrology; ATTEND Family Medicine
DX: F33.9 Major depressive disorder, recurrent, unspecified (principal); T14.91 Suicide attempt; Y92.099 Unspecified place in other non-institutional residence as the place of occurrence of the external cause; G40.909 Epilepsy, unspecified, not intractable, without status epilepticus; R25.1 Tremor, unspecified; F81.9 Developmental disorder of scholastic skills, unspecified; H55.00 Unspecified nystagmus; Z91.5 Personal history of self-harm; Z85.841 Personal history of malignant neoplasm of brain; Z92.3 Personal history of irradiation; Z79.899 Other long term (current) drug therapy; Z79.82 Long term (current) use of aspirin; F17.200 Nicotine dependence, unspecified, uncomplicated
CPT/HCPCS: 36415; 80048; 80053; 80076; 80164; 80185; 80306; 83735; 84443; 85025; 85027; 93005; 93041; 96372; 96374; 96376; 99285; G0480; J1650; J2060

== ENCOUNTER 2016-11-30 16:10 | Inpatient (IN) | payer OTHER ==
[~2016-11-30] VITALS: Ht 167.6 cm; Wt 63.8 kg
[~2016-11-30 16:10] MED LIST changes: +ESCI20TA PO; +LIDO5TD TOP; +MIRT30TA3 PO; +WELL200T PO
[2016-11-30 17:39] VITALS: BP 111/64
[2016-11-30] MEDS ORDERED: MAALOX 30 ML SUSP *UDC PO PRN (17:45)
[2016-11-30] MEDS ORDERED: MOM 30ML SUSPENSION UDC PO PRN (17:45)
[2016-11-30] MEDS: PHENYTOIN ER 100 MG CAP PO SCH (20:19)
[2016-11-30] MEDS: MIRTAZAPINE 15 MG TAB PO SCH (20:19)
[2016-11-30] MEDS: **NOTE PATIENT COMMENT** MISC XX SCH (20:20)
[2016-11-30] MEDS: NAPROXEN 250 MG TAB PO PRN (20:20)
[2016-12-01 06:40] VITALS: BP 102/63
[2016-12-01] MEDS: PHENYTOIN ER 100 MG CAP PO SCH ×2 (08:50→21:01)
[2016-12-01] MEDS: ESCITALOPRAM OXALATE 10 MG TAB (LEXAPRO) PO SCH (08:50)
[2016-12-01] MEDS: NICOTINE 7 MG/24 HR TRANSDERMAL TD SCH (08:50)
[2016-12-01] MEDS: PANTOPRAZOLE 40MG TAB (PROTONIX) PO SCH (08:50)
[2016-12-01] MEDS: ASPIRIN 81 MG CHEW TABLET PO SCH (08:50)
[2016-12-01] MEDS: LIDOCAINE 5% (LIDODERM) PATCH TD SCH (08:51)
--- NOTE | 2016-12-01 10:13 | HPEPDOC ---
Medical History and Physical Date of Admission Nov 30, 2016 at 16:10 History and Physical PCP: Lary ROWLAND ATTENDING: Dr. Juanito Lopes HPI: 60yoM admitted to [facility] for MDD, recurrent moderate. He had reported taking 8-9 pills together of his Dilantin, Lexapro, and Wellbutrin and was referred to the emergency department for evaluation. He was admitted to [facility] 11/27/16-11/30/16 for medical stabilization. He was subsequently deemed stable to transfer to [facility] 11/30/16. No acute medical complaints today. Denies any fevers, chills, weakness, fatigue , MALDONADO, CP, SOB, cough, palpitations, abdominal pain, N/V/D or changes in bowel or bladder habits. PMHx: Depression/anxiety- [facility] Seizure disorder- followed by NANCY Contreras MD Learning disability ADHD EULALIO on CPAP Osteoarthritis PSHX: H/O Brain tumor 1991/tumor removal followed by radiation therapy. jaw surgery SOCHX: Resides in: [place] Marital Status: Kids: 3 Employment: Unemployed Tobacco use: 3 cigars per day ETOH: Quit 35 years ago Illicit Drugs: History of marijuana, cocaine, acid, quit 35 years ago IV Drug Use: Denies Tattoos done unprofessionally: Denies FAMHX: Mother: Alive, Parkinson's disease Father: , epilepsy Siblings: Alive, one brother with history of Christine Gehrig's disease, one sister with history of lymphoma Children: Alive, well Unexpected deaths due to medical reasons: None. ROS: As noted in HPI, otherwise 11pt ROS of systems reviewed and unremarkable PE: GEN: 60yoM, appears stated age. Well-nourished, well developed. No acute distress. Alert and oriented x 3. Pleasant, interactive. HEENT: Normocephalic, atraumatic. Pupils are equal, round, and reactive to light. Extraocular movements are intact. No nystagmus appreciated. Sclera are nonicteric. Conjunctiva without injection. Nose midline. Nasal turbinates without bogginess. EACs both patent BL. TMs both visualized and spencer with good cone of light, no bulging or erythema. No facial asymmetry. Moist mucous membranes. Dentition poor. Pharynx pink and moist, no cobblestoning. Neck supple , trachea midline. No lymphadenopathy or thyromegaly appreciated. CHEST: Regular rate and rhythm, +S1, +S2 LUNGS: Clear to auscultation bilaterally. No wheezes, rales, or rhonchi. Breathing appears symmetric and easy. Patient is speaking in full sentences. No accessory muscle use. ABD: Round, soft, non-tender, non-distended. +Bowel sounds throughout. No rebound or guarding. No costovertebral angle tenderness. EXT: Pulses 2+ bilaterally dorsalis pedis and radial. No lower extremity edema appreciated. SKIN: Maize, dry, warm. Capillary refill <2sec. No rashes. NEURO: Alert and oriented x 3. Cranial nerves III-XII are intact. No focal deficits appreciated. EK11/27/16 SINUS RHYTHM MODERATE T-WAVE ABNORMALITY, CONSIDER ANTEROLATERAL ISCHEMIA Compared to the last 5 EKGs in the system, more ST-T abnormality now noted in the precordial leads A&P: 60yoM admitted to [facility] for MDD, recurrent moderate. 1. Psych. Plan per Psychiatry. EKG on file. 2. Nicotine dependence. Patch available. 3. Abnormal EKG. No cardiac signs or symptoms appreciated on exam, follow with PCP. 4. Follow up with PCP- Rian ROWLAND- on discharge. 5. EULALIO-CPAP from home. 6. Osteoarthritis-continue Naprosyn 500 mg by mouth twice a day as needed. Continue Lidoderm as needed. 7. Vitamin D deficiency-continue vitamin D supplement weekly on Wednesday. 8. Seizure disorder. Dilantin 200 mg twice a day. Dilantin level 18.3 11/30/16. 9. 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 Vital Signs Vital Signs Label Value Date Time Patient Temperature 97.6 degrees F 12/01/16 0640 Temperature Source Tympanic 12/01/16 0640 Pulse 66 12/01/16 0640 Respiratory Rate 18 bpm 12/01/16 0640 Blood Pressure Assessment 102/63 (76) 12/01/16 0640 Laboratory Data Labs 24H Item Value Date Time Sodium Level 145 MEQ/L 11/30/16 0632 Potassium Level 4.3 MEQ/L 11/30/16 0632 Chloride Level 109 MEQ/L H 11/30/16 0632 Carbon Dioxide Level 29 MEQ/L 11/30/16 0632 Anion Gap 7 MEQ/L L 11/30/16 0632 Blood Urea Nitrogen 18 MG/DL 11/30/16 0632 Creatinine 1.05 MG/DL 11/30/16 0632 Glomerular Filtration Rate > 60.0 11/30/16 0632 Fasting Glucose 88 MG/DL 11/30/16 0632 Calcium Level 8.0 MG/DL L 11/30/16 0632 Total Bilirubin 0.3 MG/DL 11/30/16 0632 Aspartate Amino Transf (AST/SGOT) 11 U/L L 11/30/16 0632 Alanine Aminotransferase (ALT/SGPT) 13 U/L 11/30/16 0632 Alkaline Phosphatase 85 U/L 11/30/16 0632 Total Protein 6.3 GM/DL L 11/30/16 0632 Albumin 3.2 GM/DL 11/30/16 0632 Albumin/Globulin Ratio 1.03 11/30/16 0632 White Blood Count 5.2 K/mm3 11/30/16 0632 Red Blood Count 4.57 M/mm3 11/30/16 0632 Hemoglobin 14.4 g/dl 11/30/16 0632 Hematocrit 43.8 % 11/30/16 0632 Mean Corpuscular Volume 95.7 fl 11/30/16 0632 Mean Corpuscular Hemoglobin 31.4 pg 11/30/1632 Mean Corpuscular Hemoglobin Concent 32.8 g/dl 11/30/16 0632 Red Cell Distribution Width 12.5 % 11/30/16 0632 Platelet Count 241 k/mm3 11/30/16 0632 Neutrophils (%) (Auto) 37.9 % 11/30/1632 Lymphocytes (%) (Auto) 46.1 % H 11/30/1632 Monocytes (%) (Auto) 9.4 % H 11/30/16 0632 Phenytoin (Dilantin) Level 18.3 UG/ML 11/30/16 0632 Item Value Date Time Thyroid Stimulating Hormone (TSH) 0.377 uIU/ML 11/27/16 1518 Home Medications Scheduled (Aspirin 81 Low Dose) 81 Mg Chw 81 MG PO DAILY Ergocalciferol (Vitamin D) 50,000 Unit Cap 50,000 UNIT PO 1XWK WEDNESDAYS Escitalopram Oxalate (Escitalopram Oxalate) 20 Mg Tab 20 MG PO DAILY Lidocaine (Lidocaine) 5 % Pad 1 PATCH TOP DAILY APPLY TO BACK Mirtazapine (Mirtazapine) 30 Mg Tab 30 MG PO QHS Phenytoin Sodium (Dilantin) 100 Mg Cap 200 MG PO BID Scheduled PRN Naproxen (Naproxen) 500 Mg Tab 500 MG PO BID PRN PRN PAIN Allergies Coded Allergies: No Known Allergies (Unverified , 02/01/16) Virgen Levin Dec 01, 2016 10:13
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
[2016-12-01 18:00] VITALS: BP 100/59
[2016-12-01] MEDS: **NOTE PATIENT COMMENT** MISC XX SCH (21:01)
[2016-12-01] MEDS: MIRTAZAPINE 15 MG TAB PO SCH (21:01)
[2016-12-01] MEDS: NAPROXEN 250 MG TAB PO PRN (21:03)
[2016-12-02 06:40] VITALS: BP 116/64
[2016-12-02] MEDS: ASPIRIN 81 MG CHEW TABLET PO SCH (08:35)
[2016-12-02] MEDS: PHENYTOIN ER 100 MG CAP PO SCH ×2 (08:35→21:10)
[2016-12-02] MEDS: PANTOPRAZOLE 40MG TAB (PROTONIX) PO SCH (08:35)
[2016-12-02] MEDS: ESCITALOPRAM OXALATE 10 MG TAB (LEXAPRO) PO SCH (08:35)
[2016-12-02] MEDS: NICOTINE 7 MG/24 HR TRANSDERMAL TD SCH (08:36)
[2016-12-02] MEDS: LIDOCAINE 5% (LIDODERM) PATCH TD SCH (08:36)
[2016-12-02] MEDS ORDERED: VITAMIN D 50,000 UNITS CAPSULE (ERGOCALCIFEROL 1.25MG) PO SCH (09:00)
[2016-12-02 18:00] VITALS: BP 112/60
[2016-12-02] MEDS ORDERED: hydrOXYzine 50 MG TAB PO PRN (19:00)
--- NOTE | 2016-12-02 19:15 | IPNPDOC ---
[facility] Progress Note Progress Note DATE OF SERVICE: 12/02/16 HISTORY OF THE PRESENT ILLNESS: Patient is a 60-year-old male was a transfer from the [facility] floor post overdose on prescription medications. Patient today indicates "I don't think so" when asked if recent overdose was intentional or accidental. Catering Truck Driver spoke with patient regarding conflicting information in EMR, patient maintains recent overdose was accidental. Patient speaks openly today with contract writer about recent increase in symptoms of anxiety and depression related to being informed that his is now attempting to evict him prior to reportedly agreed-upon date of 01/02/17 and is attempting to make plans for patient to be discharged from Hospital to [facility] housing as opposed to home. Patient is angry and frustrated but is expressing emotions appropriately, remains calm, and is able to maintain composure. Patient reports anxiety 12/11, depression 01/11, denies suicidal and homicidal ideation, denies audiovisual hallucinations, denies urge to engage in self-injurious behavior. Patient informs contract writer current medication regimen is effective and he denies medication side effects, indicates appetite is good and denies challenges with sleep. Patient denies symptoms of physical pain and presents with no signs of acute distress at time of assessment. VITALS: See below NEW TEST RESULTS: No new results. Labs on admission indicate low anion gap, calcium, AST, alkaline phosphatase and elevated lymph %, mono %, and chloride MEDICAL/SURGICAL HISTORY: Seizure disorder, denies history of TBI but notes has had head injuries which occurred during seizure, indicates last seizure occurred "years ago." Patient has history brain tumor which was treated in 1989 with radiation and surgery and followed by abscess, obstructive sleep apnea, uses CPAP. Patient also has history of osteoarthritis and vitamin D deficiency. EKG 11/27/16 sinus rhythm moderate T-wave abnormality, consider anterolateral ischemia compared to last 5 EKGs in the system, more ST-T abnormality now noted in the precordial leads. PA is aware, patient is asymptomatic and recommendation post discharge is being recommended. Dilantin level 11/30/1717.3 UDS positive for barbiturates on admission Depakote level 11/29/16 3.0 CURRENT MEDICATIONS: See below MENTAL STATUS EXAMINATION: Patient is a 60-year old male, who is pleasant and cooperative, disheveled, thin , ambulates with steady gait, is dressed in hospital clothing, makes good eye contact, appears stated age. Speech: Is of normal rate, rhythm, volume, coherent, spontaneous. Language skills are intact. Thought processes: Clear, goal-directed. Thought content: Rational, logical. Abstract reasoning: Appears intact. Description of associations: Intact. Description of abnormal or psychotic thoughts: Denies hallucinations, delusions , preoccupation with violence, homicidal or suicidal ideation, and obsessions]. Judgment: Fair. Insight: Fair. Orientation to time, place and person. Recent and remote memory: Intact Attention span and concentration: Intact. Language: Normal. Fund of knowledge: Adequate. Mood: "Anxious and frustrated, my is trying to throw me out before January 02." No mood lability noted. Affect: Full range, congruent with mood. DIAGNOSES: Major depressive disorder, recurrent, moderate, EULALIO ASSESSMENT: Patient appears to be adjusting to unit, is visible, engages with staff, and has been attending most groups. Patient indicates current medication regimen remains effective and informs contract writer he feels his increased symptoms of anxiety and depression directly related to recently being informed that his wants to have him discharged directly to [facility] from inpatient treatment and not return to the family household. Patient is requesting PRN anxiolytic in the event he needs it, has taken hydroxyzine in the past with good effect and denies side effects. Patient denies suicidal and homicidal thinking and is able to verbalize how to access supportive services on the unit and agrees to do so if needed. Patient is requesting assistance with how to find out how to address issue with , contract writer has asked digital account coordinator to provide legal billing clerk information. revenue coordinator has spoken with patient' s and informed her that she may not serve a letter of eviction to patient while he is in the inpatient setting; was also made aware that she must go through proper legal channels. revenue coordinator has also made contact with [facility] upper caser. Will continue to monitor patient's response to new and preexisting medications and titrate as indicated, monitor for medication side effects, and evaluate resolution of suicidal ideation and discharge readiness. Patient reiterates today he is homeless and is requesting referral to [facility] for housing. Patient is already connected with outpatient services for psychotherapy and medication management through [facility], supportive services through [facility], and would like to resume services previous providers upon discharge. MANAGEMENT PLAN: Continue Remeron 30 mg po hs and Lexapro 20 mg po q am. Initiate med trial hydroxyzine 50 mg po q 6 hours PRN for anxiety. Maintain safety precautions Patient to attend groups and participate in unit programming to develop coping strategies Engage patient in discharge planning process and arrange meeting with support system to ensure safe discharge planning when appropriate Follow-up with neurologist, Dr. Contreras, upon discharge Patient to follow up with PCM upon discharge TIME SPENT: 35 minutes Vital Signs Vital Signs Date Time Temp Pulse Resp B/P Pulse Ox O2 Delivery O2 Flow Rate FiO2 12/02/16 06:40 96.3 51 16 116/64 11/30/16 17:39 Room Air Current Medications Current Medications Al Hydrox/Mg Hydrox/Simethicone (Mylanta) 30 ml Q4HP PRN PO HEARTBURN/ INDIGESTION; Start 11/30/16 at 17:45; Stop 12/30/16 at 17:44 Aspirin (Aspirin Chewable) 81 mg DAILY PO Last administered on 12/02/16 08:35; Start 12/01/16 at 09:00; Stop 12/31/16 at 08:59 Escitalopram Oxalate (Lexapro) 20 mg DAILY PO Last administered on 12/02/16 08: 35; Start 12/01/16 at 09:00; Stop 12/31/16 at 08:59 Hydroxyzine HCl (Atarax) 50 mg Q6HP PRN PO ANXIETY; Start 12/02/16 at 19:00; Stop 01/01/17 at 18:59 Lidocaine (Lidoderm Patch) 1 patch DAILY TD Last administered on 12/02/16 08:36 ; Start 12/01/16 at 09:00; Stop 12/31/16 at 08:59 Magnesium Hydroxide (Milk Of Magnesia) 30 ml DAILYPRN PRN PO CONSTIPATION; Start 11/30/16 at 17:45; Stop 12/30/16 at 17:44 Mirtazapine (Remeron) 30 mg QHS PO Last administered on 12/01/16 21:01; Start 11/30/16 at 21:00; Stop 12/30/16 at 20:59 Naproxen (Naprosyn) 500 mg BIDP PRN PO PAIN Last administered on 12/01/16 21: 03; Start 11/30/16 at 17:45; Stop 12/30/16 at 17:44 Nicotine (Nicoderm Cq 7 Mg) 1 patch DAILY TD Last administered on 12/02/16 08: 36; Start 12/01/16 at 09:00; Stop 12/31/16 at 08:59 Non-Formulary Medication ( See Comment Field Below ) REMOVE LIDODERM PATCH DAILY@21 XX Last administered on 12/01/16 21:01; Start 11/30/16 at 21:00; Stop 12/30/16 at 20:59 Pantoprazole Sodium (Protonix) 40 mg DAILY PO Last administered on 12/02/16 08: 35; Start 12/01/16 at 09:00; Stop 12/31/16 at 08:59 Phenytoin (Dilantin) 200 mg BID PO Last administered on 12/02/16 08:35; Start 11/30/16 at 21:00; Stop 12/30/16 at 20:59 Trazodone HCl (Desyrel) 50 mg QHSP PRN PO INSOMNIA; Start 11/30/16 at 17:45; Stop 12/30/16 at 17:44 Vitamin D (Drisdol) 50,000 units We@09 PO Last administered on 12/02/16 08:35; Start 12/02/16 at 09:00; Stop 01/01/17 at 08:59 Allergies Coded Allergies: No Known Allergies (Unverified , 02/01/16) Ruth Metcalf Dec 02, 2016 19:15
[2016-12-02] MEDS: MIRTAZAPINE 15 MG TAB PO SCH (21:11)
[2016-12-02] MEDS: **NOTE PATIENT COMMENT** MISC XX SCH (21:11)
[2016-12-02] MEDS: traZODone 50 MG TAB PO PRN (21:12)
[2016-12-03 06:27] VITALS: BP 122/68
[2016-12-03] MEDS: ESCITALOPRAM OXALATE 10 MG TAB (LEXAPRO) PO SCH (09:32)
[2016-12-03] MEDS: PANTOPRAZOLE 40MG TAB (PROTONIX) PO SCH (09:32)
[2016-12-03] MEDS: PHENYTOIN ER 100 MG CAP PO SCH ×2 (09:32→20:41)
[2016-12-03] MEDS: ASPIRIN 81 MG CHEW TABLET PO SCH (09:32)
[2016-12-03] MEDS: NICOTINE 7 MG/24 HR TRANSDERMAL TD SCH (09:33)
[2016-12-03] MEDS: LIDOCAINE 5% (LIDODERM) PATCH TD SCH (09:33)
--- NOTE | 2016-12-03 17:46 | IPNPDOC ---
[facility] Progress Note Progress Note DATE OF SERVICE: 12/03/16 HISTORY OF THE PRESENT ILLNESS: Patient is a 60-year-old male was a transfer from the [facility] floor post overdose on prescription medications. Patient reiterates today he feels his recent increase in symptoms of anxiety and depression are related to being informed that his is now attempting to evict him prior to reportedly agreed-upon date of 01/02/17 and is attempting to make plans for patient to be discharged from Hospital to [facility] housing as opposed to home. Patient is less angry today, but remains frustrated, and is expressing emotions appropriately, remains calm, and is able to maintain composure. Patient reports anxiety 6/10, depression 6/10, denies suicidal and homicidal ideation, denies audiovisual hallucinations, denies urge to engage in self- injurious behavior. Patient informs insurance underwriter sales today he is having difficulty with sleep maintenance due to recent increase in stress level, states he trialed trazodone for sleep last night with poor effect. Patient was encouraged to trial hydroxyzine for symptoms related to anxiety/sleep, is aware he has medication available to him should he decide to take it. Patient informs insurance underwriter sales current medication regimen is otherwise effective and he denies medication side effects. Patient states energy level has been low, appetite is stable, and concentration and focus are generally within normal limits. Patient reports physical pain level of 6/10 related to arthritis in knees, presents with no signs of acute distress at time of assessment. VITALS: See below NEW TEST RESULTS: No new results. Labs on admission indicate low anion gap, calcium, AST, alkaline phosphatase and elevated lymph %, mono %, and chloride MEDICAL/SURGICAL HISTORY: Seizure disorder, denies history of TBI but notes has had head injuries which occurred during seizure, indicates last seizure occurred "years ago." Patient has history brain tumor which was treated in 1989 with radiation and surgery and followed by abscess, obstructive sleep apnea, uses CPAP. Patient also has history of osteoarthritis and vitamin D deficiency. EKG 11/27/16 sinus rhythm moderate T-wave abnormality, consider anterolateral ischemia compared to last 5 EKGs in the system, more ST-T abnormality now noted in the precordial leads. PA is aware, patient is asymptomatic and recommendation post discharge is being recommended. Dilantin level 11/30/16 18.3 UDS positive for barbiturates on admission Depakote level 2/26/17 3.0 CURRENT MEDICATIONS: See below MENTAL STATUS EXAMINATION: Patient is a 60-year old male, who is pleasant and cooperative, disheveled, thin , ambulates with steady gait, is dressed in hospital clothing, makes good eye contact, appears stated age. Speech: Is of normal rate, rhythm, volume, coherent, spontaneous. Language skills are intact. Thought processes: Clear, goal-directed. Thought content: Rational, logical. Abstract reasoning: Appears intact. Description of associations: Intact. Description of abnormal or psychotic thoughts: Denies hallucinations, delusions , preoccupation with violence, homicidal or suicidal ideation, and obsessions]. Judgment: Fair. Insight: Fair. Orientation to time, place and person. Recent and remote memory: Intact Attention span and concentration: Intact. Language: Normal. Fund of knowledge: Adequate. Mood: "Anxious and frustrated, and he bums me out, my is trying to throw me out from the psychiatric hospital." No mood lability noted. Affect: Constricted, no brightening today, congruent with mood. DIAGNOSES: Major depressive disorder, recurrent, moderate, EULALIO ASSESSMENT: Patient appears to be adjusting to unit, is visible, engages with staff, and has been attending most groups. Patient indicates current medication regimen remains effective and informs insurance underwriter sales he feels his increased symptoms of anxiety and depression directly related to recently being informed that his wants to have him discharged directly to [facility] housing from inpatient treatment and not return to the family household. Patient is aware he has PRN anxiolytic/sleep aid available to him, indicated it prior meeting that he has taken hydroxyzine in the past with good effect and denies medication side effects. Patient denies suicidal and homicidal thinking and is able to verbalize how to access supportive services on the unit and agrees to do so if needed. Patient has been provided with contact information for personal injury litigation paralegal and has been encouraged to pursue services if he feels he is in need of legal consultation. real estate transaction coordinator has spoken with patient's and informed her that she may not serve a letter of eviction to patient while he is in the inpatient setting; was also made aware that she must go through proper legal channels. real estate transaction coordinator has also made contact with [employer] counter caser to apprise of situation. Will continue to monitor patient's response to medications and titrate as indicated, monitor for medication side effects, and evaluate resolution of suicidal ideation and discharge readiness. Patient reiterates today he is homeless and lifestyle coordinator is initiating referral to [facility] for housing. Patient is already connected with outpatient services for psychotherapy and medication management through [facility], supportive services through [facility], and would like to resume services previous providers upon discharge. MANAGEMENT PLAN: Continue Remeron 30 mg po hs and Lexapro 20 mg po q am, continue med trial hydroxyzine 50 mg po q 6 hours PRN for anxiety/sleep. Maintain safety precautions Patient to attend groups and participate in unit programming to develop coping strategies Engage patient in discharge planning process and arrange meeting with support system to ensure safe discharge planning when appropriate Follow-up with neurologist, Dr. Contreras, upon discharge Patient to follow up with PCM upon discharge TIME SPENT: 35 minutes Vital Signs Vital Signs Date Time Temp Pulse Resp B/P Pulse Ox O2 Delivery O2 Flow Rate FiO2 12/03/16 06:27 96.9 63 18 122/68 11/30/16 17:39 Room Air Current Medications Current Medications Al Hydrox/Mg Hydrox/Simethicone (Mylanta) 30 ml Q4HP PRN PO HEARTBURN/ INDIGESTION; Start 11/30/16 at 17:45; Stop 12/30/16 at 17:44 Aspirin (Aspirin Chewable) 81 mg DAILY PO Last administered on 12/03/16 09:32; Start 12/01/16 at 09:00; Stop 12/31/16 at 08:59 Escitalopram Oxalate (Lexapro) 20 mg DAILY PO Last administered on 12/03/16 09: 32; Start 12/01/16 at 09:00; Stop 12/31/16 at 08:59 Hydroxyzine HCl (Atarax) 50 mg Q6HP PRN PO ANXIETY/SLEEP; Start 12/02/16 at 19: 00 Lidocaine (Lidoderm Patch) 1 patch DAILY TD Last administered on 12/03/16 09:33 ; Start 12/01/16 at 09:00; Stop 12/31/16 at 08:59 Magnesium Hydroxide (Milk Of Magnesia) 30 ml DAILYPRN PRN PO CONSTIPATION; Start 11/30/16 at 17:45; Stop 12/30/16 at 17:44 Mirtazapine (Remeron) 30 mg QHS PO Last administered on 12/02/16 21:11; Start 11/30/16 at 21:00; Stop 12/30/16 at 20:59 Naproxen (Naprosyn) 500 mg BIDP PRN PO PAIN Last administered on 12/01/16 21: 03; Start 11/30/16 at 17:45; Stop 12/30/16 at 17:44 Nicotine (Nicoderm Cq 7 Mg) 1 patch DAILY TD Last administered on 12/03/16 09: 33; Start 12/01/16 at 09:00; Stop 12/31/16 at 08:59 Non-Formulary Medication ( See Comment Field Below ) REMOVE LIDODERM PATCH DAILY@21 XX Last administered on 12/02/16 21:11; Start 11/30/16 at 21:00; Stop 12/30/16 at 20:59 Pantoprazole Sodium (Protonix) 40 mg DAILY PO Last administered on 12/03/16 09: 32; Start 12/01/16 at 09:00; Stop 12/31/16 at 08:59 Phenytoin (Dilantin) 200 mg BID PO Last administered on 12/03/16 09:32; Start 11/30/16 at 21:00; Stop 12/30/16 at 20:59 Trazodone HCl (Desyrel) 50 mg QHSP PRN PO INSOMNIA Last administered on 21:12; Start 11/30/16 at 17:45; Stop 12/30/16 at 17:44 Vitamin D (Drisdol) 50,000 units We@09 PO Last administered on 12/02/16 08:35; Start 12/02/16 at 09:00; Stop 01/01/17 at 08:59 Allergies Coded Allergies: No Known Allergies (Unverified , 02/01/16) Ruth Metcalf Dec 03, 2016 17:46
[2016-12-03 18:00] VITALS: BP 113/65
[2016-12-03] MEDS: **NOTE PATIENT COMMENT** MISC XX SCH (20:42)
[2016-12-03] MEDS: MIRTAZAPINE 15 MG TAB PO SCH (22:03)
[2016-12-04 07:13] VITALS: BP 107/63
[2016-12-04] MEDS: PHENYTOIN ER 100 MG CAP PO SCH ×2 (08:35→20:54)
[2016-12-04] MEDS: ESCITALOPRAM OXALATE 10 MG TAB (LEXAPRO) PO SCH (08:35)
[2016-12-04] MEDS: LIDOCAINE 5% (LIDODERM) PATCH TD SCH ×2 (08:36→12:51)
[2016-12-04] MEDS: ASPIRIN 81 MG CHEW TABLET PO SCH (08:36)
[2016-12-04] MEDS: NICOTINE 7 MG/24 HR TRANSDERMAL TD SCH (08:36)
[2016-12-04] MEDS: PANTOPRAZOLE 40MG TAB (PROTONIX) PO SCH (08:36)
--- NOTE | 2016-12-04 14:55 | IPNPDOC ---
[facility] Progress Note Progress Note DATE OF SERVICE: 12/04/16 HISTORY OF THE PRESENT ILLNESS: Patient is a 60-year-old male was a transfer from the [facility] floor post overdose on prescription medications. Patient reiterates today he feels his recent increase in symptoms of anxiety and depression are related to impending divorce and being informed that his is now attempting to evict him prior to reportedly agreed-upon date of and is attempting to make plans for patient to be discharged from Hospital to [facility] housing as opposed to home. Patient is less angry today, but remains frustrated and anxious, and is expressing emotions appropriately, remains calm, and is able to maintain composure. Patient reports anxiety 5/10, depression 5/10 , denies suicidal and homicidal ideation, denies audiovisual hallucinations, denies urge to engage in self-injurious behavior. Patient informs radio news writer today he is having difficulty intermittent daytime anxiety with sleep maintenance due to recent increase in stress level, states he took Trazodone last night for sleep with partial effect, per EMR he took no sleep aid. Patient was again encouraged to trial hydroxyzine which he has taken in the past with good effect reported, is aware he has medication available to him should he decide to take it. Patient informs radio news writer current medication regimen is otherwise effective and he denies medication side effects. Patient states energy level has been low , appetite is stable, and concentration and focus are generally within normal limits. Patient reports physical pain level of 5/10 related to arthritis in knees, presents with no signs of acute distress at time of assessment. VITALS: See below NEW TEST RESULTS: No new results. Labs on admission indicate low anion gap, calcium, AST, alkaline phosphatase and elevated lymph %, mono %, and chloride MEDICAL/SURGICAL HISTORY: Seizure disorder, denies history of TBI but notes has had head injuries which occurred during seizure, indicates last seizure occurred "years ago." Patient has history brain tumor which was treated in 1989 with radiation and surgery and followed by abscess, obstructive sleep apnea, uses CPAP. Patient also has history of osteoarthritis and vitamin D deficiency. EKG 11/27/16 sinus rhythm moderate T-wave abnormality, consider anterolateral ischemia compared to last 5 EKGs in the system, more ST-T abnormality now noted in the precordial leads. PA is aware, patient is asymptomatic and recommendation post discharge is being recommended. Dilantin level 2/27/17 18.3 UDS positive for barbiturates on admission Depakote level 11/29/16 3.0 CURRENT MEDICATIONS: See below MENTAL STATUS EXAMINATION: Patient is a 60-year old male, who is pleasant and cooperative, disheveled, thin , ambulates with steady gait, is dressed in hospital clothing, makes fair eye contact, appears stated age. Speech: Is of normal rate, rhythm, volume, coherent, spontaneous. Language skills are intact. Thought processes: Clear, goal-directed. Thought content: Rational, logical. Abstract reasoning: Appears intact. Description of associations: Intact. Description of abnormal or psychotic thoughts: Denies hallucinations, delusions , preoccupation with violence, homicidal or suicidal ideation, and obsessions]. Judgment: Fair. Insight: Fair. Orientation to time, place and person. Recent and remote memory: Intact Attention span and concentration: Intact. Language: Normal. Fund of knowledge: Adequate. Mood: "I'm worried about my divorce and the unknown future. Can you help me contact complex commercial litigation paralegal?" Patient appears anxious and frustrated, no mood lability noted. Affect: Constricted, brightens X 1 today, congruent with mood. DIAGNOSES: Major depressive disorder, recurrent, severe, EULALIO ASSESSMENT: Patient appears to be adjusting to unit, is visible, engages with staff, and has been attending most groups. Patient indicates current medication regimen remains generally effective except in regard to sleep. Patient is aware he has PRN anxiolytic/sleep aid available to him, indicated it prior meeting that he has taken hydroxyzine in the past with good effect and denies medication side effects. Patient denies suicidal and homicidal thinking and is able to verbalize how to access supportive services on the unit and agrees to do so if needed. Patient has been provided with contact information for complex commercial litigation paralegal and arrangements were made today for patient to have access to telephone with staff assistance to facilitate communication with complex commercial litigation paralegal. workers compensation coordinator has spoken with patient's and informed her that she may not serve a letter of eviction to patient while he is in the inpatient setting; was also made aware that she must go through proper legal channels. workers compensation coordinator has also made contact with [employer] telehealth case manager to apprise of situation. Will continue to monitor patient's response to medications and titrate as indicated, monitor for medication side effects, and evaluate resolution of suicidal ideation and discharge readiness. Patient reiterates today he is homeless and sales order coordinator is initiating referral to [facility] for housing. Patient is already connected with outpatient services for psychotherapy and medication management through [facility], supportive services through [facility], and would like to resume services previous providers upon discharge. MANAGEMENT PLAN: Continue Remeron 30 mg po hs and Lexapro 20 mg po q am. Patient is aware he also has trazodone 50 mg po hs PRN insomnia and hydroxyzine 50 mg po q 6 hours PRN for anxiety/sleep available to him. Maintain safety precautions Patient to attend groups and participate in unit programming to develop coping strategies Engage patient in discharge planning process and arrange meeting with support system to ensure safe discharge planning when appropriate Follow-up with neurologist, Dr. Contreras, upon discharge Patient to follow up with PCM upon discharge TIME SPENT: 35 minutes Vital Signs Vital Signs Date Time Temp Pulse Resp B/P Pulse Ox O2 Delivery O2 Flow Rate FiO2 12/04/16 07:13 97.4 65 18 107/63 11/30/16 17:39 Room Air Current Medications Current Medications Al Hydrox/Mg Hydrox/Simethicone (Mylanta) 30 ml Q4HP PRN PO HEARTBURN/ INDIGESTION; Start 11/30/16 at 17:45; Stop 12/30/16 at 17:44 Aspirin (Aspirin Chewable) 81 mg DAILY PO Last administered on 12/04/16 08:36; Start 12/01/16 at 09:00; Stop 12/31/16 at 08:59 Escitalopram Oxalate (Lexapro) 20 mg DAILY PO Last administered on 12/04/16 08: 35; Start 12/01/16 at 09:00; Stop 12/31/16 at 08:59 Hydroxyzine HCl (Atarax) 50 mg Q6HP PRN PO ANXIETY/SLEEP Last administered on 11:57; Start 12/02/16 at 19:00; Stop 01/03/17 at 18:59 Lidocaine (Lidoderm Patch) 1 patch DAILY TD Last administered on 12/04/16 08:36 ; Start 12/01/16 at 09:00; Stop 12/04/16 at 12:37; Status DC Lidocaine (Lidoderm Patch) 2 patch DAILY TD Last administered on 12/04/16 12:51 ; Start 12/04/16 at 09:00 Magnesium Hydroxide (Milk Of Magnesia) 30 ml DAILYPRN PRN PO CONSTIPATION; Start 11/30/16 at 17:45; Stop 12/30/16 at 17:44 Mirtazapine (Remeron) 30 mg QHS PO Last administered on 12/03/16 22:03; Start 11/30/16 at 21:00; Stop 12/30/16 at 20:59 Naproxen (Naprosyn) 500 mg BIDP PRN PO PAIN Last administered on 12/01/16 21: 03; Start 11/30/16 at 17:45; Stop 12/30/16 at 17:44 Nicotine (Nicoderm Cq 7 Mg) 1 patch DAILY TD Last administered on 12/04/16 08: 36; Start 12/01/16 at 09:00; Stop 12/31/16 at 08:59 Non-Formulary Medication ( See Comment Field Below ) REMOVE LIDODERM PATCH DAILY@21 XX Last administered on 12/03/16 20:42; Start 11/30/16 at 21:00; Stop 12/04/16 at 13:05; Status DC Non-Formulary Medication ( See Comment Field Below ) REMOVE LIDODERM PATCH DAILY@21 XX ; Start 12/04/16 at 21:00; Stop 01/03/17 at 20:59 Pantoprazole Sodium (Protonix) 40 mg DAILY PO Last administered on 12/04/16 08: 36; Start 12/01/16 at 09:00; Stop 12/31/16 at 08:59 Phenytoin (Dilantin) 200 mg BID PO Last administered on 12/04/16 08:35; Start 11/30/16 at 21:00; Stop 12/30/16 at 20:59 Trazodone HCl (Desyrel) 50 mg QHSP PRN PO INSOMNIA Last administered on 21:12; Start 11/30/16 at 17:45; Stop 12/30/16 at 17:44 Vitamin D (Drisdol) 50,000 units We@09 PO Last administered on 12/02/16 08:35; Start 12/02/16 at 09:00; Stop 01/01/17 at 08:59 Allergies Coded Allergies: No Known Allergies (Unverified , 02/01/16) Ruth Metcalf Dec 04, 2016 14:55
[2016-12-04 18:00] VITALS: BP 106/57
[2016-12-04] MEDS: traZODone 50 MG TAB PO PRN (21:21)
[2016-12-04] MEDS: MIRTAZAPINE 15 MG TAB PO SCH (21:22)
[2016-12-04] MEDS: **NOTE PATIENT COMMENT** MISC XX SCH (21:22)
[2016-12-05 06:43] VITALS: BP 101/60
[2016-12-05] MEDS: ASPIRIN 81 MG CHEW TABLET PO SCH (08:51)
[2016-12-05] MEDS: PHENYTOIN ER 100 MG CAP PO SCH ×2 (08:51→20:20)
[2016-12-05] MEDS: ESCITALOPRAM OXALATE 10 MG TAB (LEXAPRO) PO SCH (08:51)
[2016-12-05] MEDS: PANTOPRAZOLE 40MG TAB (PROTONIX) PO SCH (08:51)
[2016-12-05] MEDS: NICOTINE 7 MG/24 HR TRANSDERMAL TD SCH (08:52)
[2016-12-05] MEDS: LIDOCAINE 5% (LIDODERM) PATCH TD SCH (08:52)
[2016-12-05 18:00] VITALS: BP 117/59
[2016-12-05] MEDS: **NOTE PATIENT COMMENT** MISC XX SCH (21:00)
[2016-12-05] MEDS: MIRTAZAPINE 15 MG TAB PO SCH (22:08)
[2016-12-05] MEDS: traZODone 50 MG TAB PO PRN (22:09)
[2016-12-06 06:49] VITALS: BP 107/63
[2016-12-06] MEDS: PANTOPRAZOLE 40MG TAB (PROTONIX) PO SCH (09:47)
[2016-12-06] MEDS: ESCITALOPRAM OXALATE 10 MG TAB (LEXAPRO) PO SCH (09:47)
[2016-12-06] MEDS: ASPIRIN 81 MG CHEW TABLET PO SCH (09:47)
[2016-12-06] MEDS: PHENYTOIN ER 100 MG CAP PO SCH ×2 (09:48→20:01)
[2016-12-06] MEDS: NICOTINE 7 MG/24 HR TRANSDERMAL TD SCH (09:48)
[2016-12-06] MEDS: LIDOCAINE 5% (LIDODERM) PATCH TD SCH (09:48)
[2016-12-06 18:00] VITALS: BP 98/57
[2016-12-06] MEDS: **NOTE PATIENT COMMENT** MISC XX SCH (20:55)
[2016-12-06] MEDS: traZODone 50 MG TAB PO PRN (20:57)
[2016-12-06] MEDS: MIRTAZAPINE 15 MG TAB PO SCH (20:57)
[2016-12-07 06:26] VITALS: BP 93/50
[2016-12-07] MEDS: ASPIRIN 81 MG CHEW TABLET PO SCH (08:35)
[2016-12-07] MEDS: PANTOPRAZOLE 40MG TAB (PROTONIX) PO SCH (08:35)
[2016-12-07] MEDS: ESCITALOPRAM OXALATE 10 MG TAB (LEXAPRO) PO SCH (08:35)
[2016-12-07] MEDS: PHENYTOIN ER 100 MG CAP PO SCH ×2 (08:35→20:02)
[2016-12-07] MEDS: NICOTINE 7 MG/24 HR TRANSDERMAL TD SCH (08:36)
[2016-12-07] MEDS: LIDOCAINE 5% (LIDODERM) PATCH TD SCH (08:37)
[2016-12-07 18:00] VITALS: BP 123/70
[2016-12-07] MEDS: **NOTE PATIENT COMMENT** MISC XX SCH (20:00)
[2016-12-07] MEDS: MIRTAZAPINE 15 MG TAB PO SCH (21:15)
[2016-12-07] MEDS: traZODone 50 MG TAB PO PRN (21:15)
[2016-12-08 06:25] VITALS: BP 128/74
[2016-12-08] MEDS: PHENYTOIN ER 100 MG CAP PO SCH (08:06)
[2016-12-08] MEDS: PANTOPRAZOLE 40MG TAB (PROTONIX) PO SCH (08:06)
[2016-12-08] MEDS: ESCITALOPRAM OXALATE 10 MG TAB (LEXAPRO) PO SCH (08:06)
[2016-12-08] MEDS: ASPIRIN 81 MG CHEW TABLET PO SCH (08:06)
[2016-12-08] MEDS: LIDOCAINE 5% (LIDODERM) PATCH TD SCH (08:07)
[2016-12-08] MEDS: NICOTINE 7 MG/24 HR TRANSDERMAL TD SCH (08:17)
[2016-12-08] MEDS ORDERED: NICO7PA TD (08:21)
--- NOTE | 2016-12-08 09:43 | IPN ---
DATE: 12/07/2016 SUBJECTIVE: "I am feeling a little better." OBJECTIVE: Patient continues improving slowly. He is less depressed and anxious. He is denying auditory or visual hallucinations or delusions. MENTAL STATUS EXAMINATION: The patient is dressed in [facility]. Patient is calm and cooperative. He has fair eye contact. Speech is slow and monotone. Mood is depressed and anxious but improving. Affect is restricted but also improving. No delusions or hallucinations. Memory is fair. Patient is fully oriented. Associations are intact. Thinking is logical. Thought content is appropriate. Patient is able to contract for safety and denies suicidal or homicidal ideation. Insight and judgment is fair. ASSESSMENT: Depression. PLAN: 1. Continue with citalopram 20 mg by mouth every morning. 2. Continue with Remeron 30 mg by mouth at bedtime. 3. Continue with trazodone 50 mg as needed for insomnia.
[2016-12-08] MEDS ORDERED: ESCI10TA2 PO (15:45)
[2016-12-08] MEDS ORDERED: TRAZO50TA PO (15:45)
[2016-12-08] MEDS ORDERED: MIRT15TA3 PO (15:45)
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
== END 2016-12-08 14:00 | disposition home or self-care (01) | DRG 885 ==
LOC: M PSY 16:10
PROVIDERS: ADMIT Psychiatry & Neurology Psychiatry; ATTEND Psychiatry & Neurology Psychiatry
DX: F33.2 Major depressive disorder, recurrent severe without psychotic features (principal); G47.33 Obstructive sleep apnea (adult) (pediatric); F17.210 Nicotine dependence, cigarettes, uncomplicated; F41.9 Anxiety disorder, unspecified; Z63.0 Problems in relationship with spouse or partner; G40.909 Epilepsy, unspecified, not intractable, without status epilepticus; E55.9 Vitamin D deficiency, unspecified; M19.90 Unspecified osteoarthritis, unspecified site; Z91.5 Personal history of self-harm; Z79.82 Long term (current) use of aspirin; Z79.899 Other long term (current) drug therapy

== ENCOUNTER → 2016-12-23 | Outpatient (REF) | payer OTHER ==
[~2016-12-23] MED LIST changes: +ESCI10TA2 PO; +MIRT15TA3 PO; +NICO7PA TD; +TRAZO50TA PO
[2016-12-23 21:25] LABS: MEAN CORPUSCULAR HEMOGLOBIN 32.1 pg (27.0-33.0); MEAN CORPUSCULAR HGB CONC 33.7 g/dl (32.0-36.5); MEAN CORPUSCULAR VOLUME 95.2 fl (80.0-96.0); RED CELL DISTRIBUTION WIDTH 12.9 % (11.5-14.5); WHITE BLOOD COUNT 6.1 K/mm3 (4.0-10.0)
[2016-12-23 21:45] LABS: VITAMIN B12 LEVEL 528 PG/ML (247-911)
[2016-12-23 21:48] LABS: ALBUMIN 4.2 GM/DL (3.2-5.2); ALBUMIN/GLOBULIN RATIO 1.56 (1.00-1.93); ALKALINE PHOSPHATASE 95 U/L (45-117); ALT/SGPT 18 U/L (12-78); ANION GAP 7 MEQ/L (8-16); AST/SGOT 22 U/L (15-37); BILIRUBIN,TOTAL 0.4 MG/DL (0.2-1.0); BLOOD UREA NITROGEN 13 MG/DL (7-18); CALCIUM LEVEL 8.7 MG/DL (8.5-10.1); CARBON DIOXIDE LEVEL 28 MEQ/L (21-32); CHLORIDE LEVEL 107 MEQ/L (98-107); CREATININE FOR GFR 0.95 MG/DL (0.70-1.30); FREE T4 0.94 NG/DL (0.76-1.46); GLOMERULAR FILTRATION RATE > 60.0 (>56); GLUCOSE, FASTING 80 MG/DL (70-105); POTASSIUM SERUM 4.5 MEQ/L (3.5-5.1); SODIUM LEVEL 142 MEQ/L (136-145); TOTAL PROTEIN 6.9 GM/DL (6.4-8.2)
== END ==
LOC: M SFHCADAM 15:08
PROVIDERS: ATTEND Family Medicine
DX: F32.9 Major depressive disorder, single episode, unspecified (principal); G40.909 Epilepsy, unspecified, not intractable, without status epilepticus; E53.8 Deficiency of other specified B group vitamins; E55.9 Vitamin D deficiency, unspecified

== ENCOUNTER → 2017-01-04 | Outpatient (REF) | payer OTHER ==
[2017-01-04 14:46] LABS: BASO % 0.4 % (0.0-1.0); EOS # 0.1 K/mm3 (0.0-0.50); EOS % 1.7 % (0.0-3.0); LARGE UNSTAINED CELL # 0.1 K/mm3 (0.0-0.4); LARGE UNSTAINED CELL % 2.1 % (0.0-4.0); LYMPH # 1.6 K/mm3 (1.5-4.5); LYMPH % 26.9 % (24.0-44.0); MEAN CORPUSCULAR HEMOGLOBIN 31.8 pg (27.0-33.0); MEAN CORPUSCULAR HGB CONC 32.6 g/dl (32.0-36.5); MEAN CORPUSCULAR VOLUME 97.7 fl (80.0-96.0); MONO # 0.5 K/mm3 (0.0-0.8); MONO % 8.8 % (0.0-5.0); NEUTROPHILS # 3.4 K/mm3 (1.8-7.7); NEUTROPHILS % 60.1 % (36.0-66.0); PLATELET COUNT, AUTOMATED 235 k/mm3 (150-450); RED CELL DISTRIBUTION WIDTH 13.7 % (11.5-14.5); WHITE BLOOD COUNT 5.6 K/mm3 (4.0-10.0)
== END ==
LOC: M LABNEURO 13:24
PROVIDERS: ATTEND Physician Assistant Medical
DX: Z51.81 Encounter for therapeutic drug level monitoring (principal); Z79.899 Other long term (current) drug therapy; G40.909 Epilepsy, unspecified, not intractable, without status epilepticus

== ENCOUNTER → 2017-06-21 | Outpatient (REF) | payer MEDICARE, MEDICAID ==
[~2017-06-21] MED LIST changes: +ASPI1TAB15 PO; -ASPI81TA7 PO; +CHAN1PAK11; +CHAN1PAK11 PO; +CLEO300C2 PO; +COUM1TAB17 PO; +DOXE25CA; +DOXE25CA PO; +ELIQ5TAB PO; +FLOM5CAP PO; -FOLI1TAB2 PO; +FOLI1TAB4 PO; +GABA-282; +GABA-282 PO; +HYDR-3713; +HYDR-3713 PO; -HYDR-4274 PO; +HYDR50TA70 PO; +LOVE0.6I2 SC; +MIRT45TA PO; -NAPR500T2 PO; +NAPR500T3 PO; +TAMSULOSIN; +TRAZ50TA11 PO; +VITA100066 PO; +VITA1CAP40 PO; -VITA50003 PO
[2017-06-23 11:42] LABS: HEP C VIRUS AB SCREEN MEDICARE 0.2 INDEX (<0.8)
== END ==
LOC: M SFHCPLAZ 15:27
PROVIDERS: ATTEND Family Medicine
DX: G40.909 Epilepsy, unspecified, not intractable, without status epilepticus (principal); R35.1 Nocturia; R35.8 Other polyuria; Z11.59 Encounter for screening for other viral diseases; N52.9 Male erectile dysfunction, unspecified; Z23 Encounter for immunization; Z79.82 Long term (current) use of aspirin; Z79.899 Other long term (current) drug therapy
CPT/HCPCS: 36415; 80185; 90686; G0008; G0103; G0463; G0472

== ENCOUNTER 2017-06-25 16:43 | Emergency (ER) | payer MEDICARE, MEDICAID ==
[~2017-06-25] VITALS: Ht 167.6 cm; Wt 65.9 kg
[~2017-06-25 16:43] MED LIST changes: -CHAN1PAK11; -CHAN1PAK11 PO; -CLEO300C2 PO; -COUM1TAB17 PO; -DOXE25CA; -DOXE25CA PO; -ELIQ5TAB PO; -FLOM5CAP PO; -GABA-282; -GABA-282 PO; -HYDR-3713; -HYDR-3713 PO; -LOVE0.6I2 SC; -MIRT45TA PO; -TAMSULOSIN; -TRAZ50TA11 PO; -VITA100066 PO
[2017-06-25] MEDS ORDERED: TAMSULOSIN (16:57)
[2017-06-25] MEDS ORDERED: CLINDAMYCIN 150 MG CAP PO ONE (18:15)
--- NOTE | 2017-06-25 19:50 | REPUSA ---
Clinical history: Pain, swelling. Findings: There is echogenic, occlusive thrombus proximal right common femoral vein extending through out the majority of the superficial femoral vein. Minimal venous blood flow seen in the distal superf icial femoral vein. Very slow blood flow is seen in the right popliteal vein as well. Impression: Extensive occlusive deep vein thrombosis in the right common and superficial femoral veins as describ ed.
[2017-06-25] MEDS ORDERED: APIXABAN 5 MG TAB (ELIQUIS) PO ONE (20:30)
[2017-06-25] MEDS ORDERED: ELIQ5TAB PO (20:42)
[2017-06-25] MEDS ORDERED: CLEO300C2 PO (20:42)
[2017-06-25 20:55] VITALS: BP 131/71
== END 2017-06-25 20:56 | disposition home or self-care (01) ==
LOC: M ED 16:43
DX: I82.411 Acute embolism and thrombosis of right femoral vein (principal); K04.7 Periapical abscess without sinus; R56.9 Unspecified convulsions; F33.9 Major depressive disorder, recurrent, unspecified; F17.210 Nicotine dependence, cigarettes, uncomplicated; H55.00 Unspecified nystagmus; Z79.899 Other long term (current) drug therapy; Z79.82 Long term (current) use of aspirin

== ENCOUNTER 2017-07-14 16:44 | Observation (INO) | payer MEDICARE, MEDICAID ==
[~2017-07-14] VITALS: Ht 167.6 cm; Wt 66.8 kg
[~2017-07-14 16:44] MED LIST changes: +CLEO300C2 PO; +ELIQ5TAB PO; +TAMSULOSIN
[2017-07-14] MEDS ORDERED: CHAN1PAK11 (16:55)
[2017-07-14] MEDS ORDERED: HYDR-3713 (16:55)
[2017-07-14] MEDS ORDERED: DOXE25CA (16:55)
[2017-07-14] MEDS ORDERED: GABA-282 (16:55)
[2017-07-14] MEDS ORDERED: PERCOCET 5MG/325MG TAB PO ONE (18:00)
[2017-07-14 18:49] LABS: BASO % 0.6 % (0.0-1.0); EOS # 0.1 10^3/uL (0.0-0.50); EOS % 1.4 % (0.0-3.0); IMMATURE GRANULOCYTE % 0.3 % (0-0); LYMPH # 2.4 10^3/uL (1.5-4.5); LYMPH % 37.1 % (24.0-44.0); MEAN CORPUSCULAR HEMOGLOBIN 32.9 pg (27.0-33.0); MEAN CORPUSCULAR VOLUME 96.8 fl (80.0-96.0); MONO # 0.8 10^3/uL (0.0-0.8); MONO % 11.6 % (0.0-5.0); NEUTROPHILS # 3.2 10^3/uL (1.8-7.7); PLATELET COUNT, AUTOMATED 351 10^3/uL (150-450); RED CELL DISTRIBUTION WIDTH 13.5 % (11.5-14.5); WHITE BLOOD COUNT 6.5 10^3/uL (4.0-10.0)
[2017-07-14] MEDS ORDERED: PHENYTOIN ER 100 MG CAP PO ONE (19:00)
[2017-07-14 19:28] LABS: ALBUMIN 3.4 GM/DL (3.2-5.2); ALKALINE PHOSPHATASE 93 U/L (45-117); ALT/SGPT 13 U/L (12-78); ANION GAP 6 MEQ/L (8-16); AST/SGOT 13 U/L (15-37); BILIRUBIN,TOTAL 0.2 MG/DL (0.2-1.0); BLOOD UREA NITROGEN 14 MG/DL (7-18); CALCIUM LEVEL 8.8 MG/DL (8.5-10.1); CARBON DIOXIDE LEVEL 26 MEQ/L (21-32); CHLORIDE LEVEL 109 MEQ/L (98-107); GLOMERULAR FILTRATION RATE > 60.0 (>56); GLUCOSE, FASTING 86 MG/DL (70-105); POTASSIUM SERUM 3.7 MEQ/L (3.5-5.1); SODIUM LEVEL 141 MEQ/L (136-145); TOTAL PROTEIN 6.8 GM/DL (6.4-8.2)
--- NOTE | 2017-07-14 19:30 | REPUSA ---
HISTORY: Pain and swelling. Rule out deep venous thrombosis. TECHNIQUE: Realtime sonographic images were obtained in multiple projections. FINDINGS: Correlation is made with 06/25/17 study. There is evidence of echogenic material from external iliac vein to distal femoral vein with limited flow and compressibility compatible with acute DVT. Popliteal veins demonstrate normal echo-free lumen, compressibility and flow. IMPRESSION: Findings compatible with DVT as above, likely acute on subacute. Thank you for your kind referral of this patient. -
[2017-07-14] MEDS ORDERED: BISACODYL 10 MG SUPP PR PRN (20:00)
[2017-07-14] MEDS ORDERED: ONDANSETRON 4MG/2ML VIAL (J2405) IV PRN (20:00)
[2017-07-14] MEDS ORDERED: MOM 30ML SUSPENSION UDC PO PRN (20:00)
[2017-07-14] MEDS ORDERED: ACETAMINOPHEN TAB 650MG DOSE (2X325MG) PO PRN (20:00)
[2017-07-14] MEDS ORDERED: DOXE25CA PO (20:01)
[2017-07-14] MEDS ORDERED: GABA-282 PO (20:01)
[2017-07-14] MEDS ORDERED: MIRT45TA PO (20:01)
[2017-07-14] MEDS ORDERED: LEXA1TAB2 PO (20:01)
[2017-07-14] MEDS ORDERED: DILA100C PO (20:01)
[2017-07-14] MEDS ORDERED: TRAZ50TA11 PO (20:01)
[2017-07-14] MEDS ORDERED: VITA100066 PO (20:01)
[2017-07-14] MEDS ORDERED: HYDR-3713 PO (20:01)
[2017-07-14] MEDS ORDERED: CHAN1PAK11 PO (20:01)
[2017-07-14] MEDS ORDERED: FLOM5CAP PO (20:01)
[2017-07-14] MEDS ORDERED: ELIQ5TAB PO (20:01)
[2017-07-14] MEDS ORDERED: LIDO5TD TOP (20:01)
[2017-07-14] MEDS ORDERED: HEPARIN SOD (PORCINE) 5000 UNITS/ML VIAL IV STA (20:06)
[2017-07-14] MEDS ORDERED: NORCO, ANEXSIA 5/325MG TABLET (HYDROcodone/ACETAMINOPHEN) PO PRN (20:15)
[2017-07-14] MEDS ORDERED: HEPARIN SOD (PORCINE) 5000 UNITS/ML VIAL IV ONE (20:15)
[2017-07-14] MEDS ORDERED: LIDOCAINE 5% (LIDODERM) PATCH TOP PRN (20:15)
[2017-07-14] MEDS ORDERED: HEPARIN SOD (PORCINE) 5000 UNITS/ML VIAL IV PRN (20:30)
[2017-07-14] MEDS ORDERED: MIRTAZAPINE 15 MG TAB PO SCH (21:00)
[2017-07-14] MEDS ORDERED: traZODone 50 MG TAB PO SCH (21:00)
[2017-07-14] MEDS ORDERED: HEPARIN DRIP 25,000 UNITS in APPROPRIATE DILUENT 1 EA IV SCH (21:00)
[2017-07-14] MEDS ORDERED: DOXEPIN 25 MG CAP PO SCH (21:00)
[2017-07-14] MEDS ORDERED: **NOTE PATIENT COMMENT** MISC XX SCH (21:00)
[2017-07-14] MEDS: PHENYTOIN ER 100 MG CAP PO SCH (21:00)
[2017-07-14 21:37] LABS: MEAN CORPUSCULAR HEMOGLOBIN 32.7 pg (27.0-33.0); MEAN CORPUSCULAR HGB CONC 33.8 g/dl (32.0-36.5); MEAN CORPUSCULAR VOLUME 96.8 fl (80.0-96.0); RED CELL DISTRIBUTION WIDTH 13.4 % (11.5-14.5); WHITE BLOOD COUNT 6.8 10^3/uL (4.0-10.0)
[2017-07-14 23:25] VITALS: BP 113/62
[2017-07-14] MEDS: PIPERACILLIN/TAZOBACTAM SOD 3.375 GM in D5W 50 ML IV SCH (23:43)
[2017-07-14] MEDS: GABAPENTIN 300 MG CAP PO SCH (23:44)
[2017-07-14] MEDS: DOCUSATE SODIUM 100 MG CAP PO SCH (23:44)
[2017-07-14] MEDS: SENOKOT S TAB PO SCH (23:45)
[2017-07-15] MEDS: PIPERACILLIN/TAZOBACTAM SOD 3.375 GM in D5W 50 ML IV SCH ×3 (03:59→15:00)
[2017-07-15 04:00] VITALS: BP 117/62
[2017-07-15 08:00] VITALS: BP 123/69
[2017-07-15] MEDS: DOCUSATE SODIUM 100 MG CAP PO SCH (08:38)
[2017-07-15] MEDS: GABAPENTIN 300 MG CAP PO SCH (08:38)
[2017-07-15] MEDS: SENOKOT S TAB PO SCH (08:38)
[2017-07-15] MEDS: PHENYTOIN ER 100 MG CAP PO SCH (08:42)
[2017-07-15] MEDS ORDERED: ESCITALOPRAM OXALATE 10 MG TAB (LEXAPRO) PO SCH (09:00)
[2017-07-15] MEDS ORDERED: VITAMIN D 1,000 INTERNATIONAL UNITS TABLET PO SCH (09:00)
[2017-07-15] MEDS ORDERED: TAMSULOSIN 0.4 MG CAP PO SCH (09:00)
[2017-07-15 12:00] VITALS: BP 112/62
[2017-07-15] MEDS ORDERED: LOVE0.6I2 SC (12:03)
[2017-07-15] MEDS ORDERED: COUM1TAB17 PO (12:03)
[2017-07-15] MEDS ORDERED: WARFARIN SOD 5 MG TAB PO ONE (12:30)
[2017-07-15 13:22] LABS: INR 0.99
[2017-07-15] MEDS ORDERED: ENOXAPARIN 80 MG/0.8 ML SYRINGE (J1650) SC SCH (14:00)
--- NOTE | 2017-08-16 11:42 | DSES ---
DATE OF ADMISSION: 07/14/2017 DATE OF DISCHARGE: 07/15/2017 ADMITTING DIAGNOSIS: Deep vein thrombosis (DVT) and swelling of lower extremities. DISCHARGE DIAGNOSIS: Deep vein thrombosis (DVT) and swelling of lower extremities. HOSPITAL COURSE: The patient was admitted and monitored with no significant worsening of his swelling in his lower extremities. The patient was subsequently discharged and will be on Coumadin and will followup in my office for continued management of his deep vein thrombosis.
== END 2017-07-15 16:05 | disposition home or self-care (01) ==
LOC: M ED 16:44 → M ED INP 20:00 → M PCU 23:19
PROVIDERS: ADMIT Surgery Vascular Surgery; ATTEND Surgery Vascular Surgery
DX: I82.4Z1 Acute embolism and thrombosis of unspecified deep veins of right distal lower extremity (principal)
CPT/HCPCS: 36415; 80053; 85025; 85027; 85610; 85730; 93971; 96365; 96366; 96372; 99285; G0378; G0463; J1650; J2543

== ENCOUNTER → 2017-07-19 | Outpatient (REF) | payer MEDICARE, MEDICAID ==
[~2017-07-19] MED LIST changes: +CHAN1PAK11; +CHAN1PAK11 PO; +COUM1TAB17 PO; +DOXE25CA; +DOXE25CA PO; +FLOM5CAP PO; +GABA-282; +GABA-282 PO; +HYDR-3713; +HYDR-3713 PO; +LOVE0.6I2 SC; +MIRT45TA PO; +TRAZ50TA11 PO; +VITA100066 PO
[2017-07-19 17:37] LABS: BASO % 0.4 % (0.0-1.0); EOS # 0.1 10^3/uL (0.0-0.50); IMMATURE GRANULOCYTE % 0.3 % (0-0); LYMPH # 3.2 10^3/uL (1.5-4.5); LYMPH % 45.9 % (24.0-44.0); MEAN CORPUSCULAR HGB CONC 33.2 g/dl (32.0-36.5); MEAN CORPUSCULAR VOLUME 99.5 fl (80.0-96.0); MONO # 0.8 10^3/uL (0.0-0.8); MONO % 12.2 % (0.0-5.0); NEUTROPHILS # 2.8 10^3/uL (1.8-7.7); NEUTROPHILS % 40.2 % (36.0-66.0); PLATELET COUNT, AUTOMATED 296 10^3/uL (150-450); RED CELL DISTRIBUTION WIDTH 14.3 % (11.5-14.5); RETIC HEMOGLOBIN EQUIVALENT 37.6 pg (24-36); RETICULOCYTE % 2.2 % (0.5-1.5); WHITE BLOOD COUNT 6.9 10^3/uL (4.0-10.0)
[2017-07-19 17:59] LABS: INR 1.61
== END ==
LOC: M SFHCPLAZ 16:37
PROVIDERS: ATTEND Family Medicine
DX: I82.411 Acute embolism and thrombosis of right femoral vein (principal); D64.9 Anemia, unspecified; Z13.220 Encounter for screening for lipoid disorders; Z86.39 Personal history of other endocrine, nutritional and metabolic disease; Z79.01 Long term (current) use of anticoagulants; Z79.899 Other long term (current) drug therapy
CPT/HCPCS: 80061; 82607; 83550; 85025; 85046; 85610; G0463

== ENCOUNTER → 2017-07-30 | Outpatient (REF) | payer MEDICARE, MEDICAID | LOC: M SFHCPLAZ 14:58 | PROVIDERS: ATTEND Family Medicine | DX: I82.411 Acute embolism and thrombosis of right femoral vein (principal); N52.9 Male erectile dysfunction, unspecified | CPT/HCPCS: 84403; 85610; G0463 ==

== ENCOUNTER → 2017-09-02 | Outpatient (CLI) | payer MEDICARE, MEDICAID | LOC: M SMT 14:00 | PROVIDERS: ATTEND Nurse Practitioner Family | DX: Z12.5 Encounter for screening for malignant neoplasm of prostate (principal) | CPT/HCPCS: 36415; G0103; G0463 ==

== ENCOUNTER 2017-09-19 03:23 | Emergency (ER) | payer MEDICARE, MEDICAID ==
[~2017-09-19] VITALS: Ht 167.6 cm; Wt 68.2 kg
[2017-09-19 04:31] LABS: INR 1.94
--- NOTE | 2017-09-19 05:40 | REPUSA ---
TESTICULAR SONOGRAM History: Pain. Comparison studies: None available Technique: Multiple real-time images of the scrotal contents were obtained. Findings: The right testicle measures 3.6x2.1x2.5 cm. Right epididymis measures 9.1 mm. Left testicle measures 3.9x1.7x2.4 cm. Left epididymis measures 8.7 mm. The testes are normal in size. Doppler flow is demonstrated on both testes. There are no findings tara picious for testicular torsion. There are also no findings suspicious for testicular malignancy. No significant abnormality of either epididymis is found sonographically. No findings suspicious for epididymitis are identified. A physiologic amount of fluid is identified in each hemiscrotom. Impression: No evidence of testicular torsion is identified. No significant abnormality detected.
[2017-09-19 06:13] VITALS: BP 133/70
== END 2017-09-19 06:14 | disposition home or self-care (01) ==
LOC: M ED 03:23
DX: S30.94XA Unspecified superficial injury of scrotum and testes, initial encounter (principal); X58.XXXA Exposure to other specified factors, initial encounter; Y92.89 Other specified places as the place of occurrence of the external cause; Y93.89 Activity, other specified; Y99.8 Other external cause status; G40.909 Epilepsy, unspecified, not intractable, without status epilepticus; G47.00 Insomnia, unspecified; F17.210 Nicotine dependence, cigarettes, uncomplicated; Z79.01 Long term (current) use of anticoagulants; Z86.718 Personal history of other venous thrombosis and embolism

== ENCOUNTER → 2017-12-17 | Outpatient (CLI) | payer MEDICARE, MEDICAID | LOC: M RAD 11:57 | DX: M25.551 Pain in right hip (principal) | CPT/HCPCS: 73502 ==

== ENCOUNTER → 2018-01-04 | Outpatient (REF) | payer MEDICARE, MEDICAID ==
[2018-01-04 18:50] LABS: PHENYTOIN (DILANTIN) 10.7 UG/ML (10.0-20.0)
== END ==
LOC: M LABNEURO 15:22
DX: R56.9 Unspecified convulsions (principal)
CPT/HCPCS: 80185

== ENCOUNTER → 2018-07-06 | Outpatient (REF) | payer MEDICARE, MEDICAID ==
[2018-07-06 18:34] LABS: RHEUMATOID FACTOR QUANT < 10.0 IU/ML (<15.0)
[2018-07-06 19:17] LABS: ERYTHROCYTE SEDIMENTATION RATE 3 mm/hr (0-20)
== END ==
LOC: M LABNEURO 14:39
DX: R56.9 Unspecified convulsions (principal); M25.559 Pain in unspecified hip; Z51.81 Encounter for therapeutic drug level monitoring; Z79.899 Other long term (current) drug therapy
CPT/HCPCS: 80185

== ENCOUNTER → 2018-07-06 | Outpatient (REF) | payer MEDICARE, MEDICAID ==
[2018-07-06 14:10] LABS: BASO % 0.6 % (0.0-1.0); EOS # 0.1 10^3/uL (0.0-0.50); EOS % 1.4 % (0.0-3.0); HEMATOCRIT 47.9 % (42.0-52.0); HEMOGLOBIN 15.9 g/dl (13.5-17.5); IMMATURE GRANULOCYTE % 0.2 % (0-3.0); LYMPH # 2.4 10^3/uL (1.5-4.5); LYMPH % 37.7 % (24.0-44.0); MEAN CORPUSCULAR HEMOGLOBIN 32.7 pg (27.0-33.0); MEAN CORPUSCULAR HGB CONC 33.2 g/dl (32.0-36.5); MEAN CORPUSCULAR VOLUME 98.6 fl (80.0-96.0); NEUTROPHILS # 2.9 10^3/uL (1.8-7.7); NEUTROPHILS % 45.1 % (36.0-66.0); RED BLOOD COUNT 4.86 10^6/uL (4.30-6.10); RED CELL DISTRIBUTION WIDTH 13.4 % (11.5-14.5); WHITE BLOOD COUNT 6.5 10^3/uL (4.0-10.0)
[2018-07-06 14:22] LABS: CHOLESTEROL LEVEL 222 MG/DL (<200); CHOLESTEROL RISK RATIO 2.674 (<5); FREE T4 0.72 NG/DL (0.76-1.46); HDL CHOLESTEROL 83 MG/DL (>40); IRON (FE) 142 UG/DL (65-175); LDL CHOLESTEROL 127 MG/DL (<100); NON-HDL-C 139 MG/DL; TOTAL IRON BINDING CAPACITY 284 UG/DL (250-450); TRIGLYCERIDES LEVEL 58 MG/DL (<150)
[2018-07-06 14:49] LABS: POS COUNT POS FLAG
== END ==
LOC: M SFHCPLAZ 10:48
DX: D50.9 Iron deficiency anemia, unspecified (principal); R94.6 Abnormal results of thyroid function studies; E78.00 Pure hypercholesterolemia, unspecified; E55.9 Vitamin D deficiency, unspecified; E53.8 Deficiency of other specified B group vitamins
CPT/HCPCS: 80185; 83550

== ENCOUNTER → 2019-07-20 | Outpatient (REF) | payer MEDICARE, MEDICAID ==
[~2019-07-20] MED LIST changes: -ASPI81CH32 PO; +ASPI81CH33 PO; +FLOM0.4C39 PO; -FLOM5CAP PO; +FOLI1TAB11 PO; -FOLI1TAB4 PO; -GABA-282; -GABA-282 PO; +GABA-843; +GABA-843 PO; -MIRT45TA PO; +MIRT45TA4 PO; +NAPR-885 PO; -NAPR500T3 PO; +TRAZ-252 PO; +TRAZ1TAB10 PO; -TRAZ50TA11 PO; -TRAZO50TA PO; -VITA1CAP40 PO; +VITA50005 PO
[2019-07-20 12:59] LABS: BASO % 0.3 % (0.0-1.0); EOS # 0.1 10^3/uL (0.0-0.5); EOS % 1.1 % (0.0-3.0); HEMATOCRIT 45.5 % (42.0-52.0); HEMOGLOBIN 15.6 g/dl (13.5-17.5); LYMPH # 2.1 10^3/uL (1.5-5.0); LYMPH % 22.2 % (24.0-44.0); MEAN CORPUSCULAR HEMOGLOBIN 34.4 pg (27.0-33.0); MEAN CORPUSCULAR HGB CONC 34.3 g/dl (32.0-36.5); MEAN CORPUSCULAR VOLUME 100.4 fl (80.0-96.0); MONO # 1.2 10^3/uL (0.0-0.8); MONO % 13.1 % (0.0-5.0); NEUTROPHILS # 5.9 10^3/uL (1.5-8.5); NEUTROPHILS % 63.1 % (36.0-66.0); PLATELET COUNT, AUTOMATED 213 10^3/uL (150-450); RED BLOOD COUNT 4.53 10^6/uL (4.30-6.10); WHITE BLOOD COUNT 9.3 10^3/uL (4.0-10.0)
[2019-07-20 13:40] LABS: CHOLESTEROL RISK RATIO 2.743 (<5); FREE T4 0.66 NG/DL (0.76-1.46); THYROID STIMULATING HORMONE 1.78 uIU/ML (0.358-3.740)
== END ==
LOC: M SFHCPLAZ 10:29
PROVIDERS: ATTEND Family Medicine
DX: D64.9 Anemia, unspecified (principal); R94.6 Abnormal results of thyroid function studies; E78.00 Pure hypercholesterolemia, unspecified; Z12.5 Encounter for screening for malignant neoplasm of prostate; E55.9 Vitamin D deficiency, unspecified; E53.8 Deficiency of other specified B group vitamins
CPT/HCPCS: 36415; 80061; 82306; 82607; 84439; 84443; 85025; 90471; 90682; 90714; G0008; G0103

== ENCOUNTER → 2019-08-28 | Outpatient (CLI) | payer MEDICARE, MEDICAID ==
[~2019-08-28] MED LIST changes: +ISOVUE-370 76% 100ML VIAL (Q9967) As Ordered ONE
--- NOTE | 2019-08-28 11:47 | REP ---
CT ANGIOGRAM BILATERAL LOWER EXTREMITIES: CT angiogram bilateral lower extremities is performed with axial images obtained from just above the aortic bifurcation through the feet. 100 mL of Isovue-370 was administered intravenously. Sagittal, coronal, and 3D MIP reconstruction images are performed. The distal end of the abdominal aorta is normal in caliber with mild atherosclerotic plaquing. The right common iliac artery demonstrates mild scattered plaquing and narrowing. There is moderate stenosis at the origin of the right internal iliac artery. The right external iliac artery demonstrates mild scattered narrowing, as does the right common femoral artery. Right profunda is patent. There is mild to moderate narrowing at the origin of the right superficial femoral artery. Mild diffuse plaquing and narrowing is seen of the remaining right superficial femoral artery. There is also mild narrowing diffusely of the right popliteal artery. The right calf arteries are patent. The right anterior tibial artery demonstrates mild plaquing and narrowing proximally. This artery is patent into the foot. Right posterior tibial artery demonstrates mild, diffuse narrowing and is patent into the foot. The right peroneal artery demonstrates mild scattered plaquing and narrowing, and tapers at the ankle, but does appear to traverse into the right foot. On the left, there is moderate to severe plaquing of the common iliac artery with high-grade stenosis of the mid aspect of the common iliac artery. There is moderate stenosis at the origin of the left internal iliac artery. There is high-grade stenosis at the origin of the left external iliac artery. Remainder of the external iliac artery demonstrates mild narrowing. The left common femoral artery demonstrates relatively moderate diffuse plaquing and narrowing. Left profunda demonstrates moderate plaquing and narrowing. Left superficial femoral artery demonstrates mild, diffuse plaquing and narrowing without evidence of significant stenosis. Left popliteal artery demonstrates mild diffuse plaquing and narrowing without significant stenosis. Left anterior tibial artery demonstrates moderate plaquing and narrowing proximally. This artery does traverse into the dorsum of the foot. The left tibioperoneal trunk demonstrates moderate diffuse narrowing. Left posterior tibial artery demonstrates moderate diffuse narrowing and is occluded at the midcalf. The left peroneal artery is occluded at its origin. In the pelvis, there is no evidence of mass, adenopathy, or free fluid. 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 Single vessel runoff into the left foot. Mild, diffuse plaquing and narrowing of the right lower extremity arterial system with three-vessel runoff into the right foot. Electronically Signed by Calin Sanchez MD 08/28/2019 02:54 P
== END ==
LOC: M RAD 07:51
PROVIDERS: ATTEND Student in an Organized Health Care Education/Training Program
DX: M79.605 Pain in left leg (principal)
CPT/HCPCS: 73706; Q9967

== ENCOUNTER → 2019-09-20 | Outpatient (REF) | payer MEDICARE, MEDICAID ==
[~2019-09-20] MED LIST changes: -ISOVUE-370 76% 100ML VIAL (Q9967) As Ordered ONE
[2019-09-20 13:19] LABS: HEMATOCRIT 49.8 % (42.0-52.0); HEMOGLOBIN 15.9 g/dl (13.5-17.5); MEAN CORPUSCULAR HEMOGLOBIN 32.5 pg (27.0-33.0); MEAN CORPUSCULAR HGB CONC 31.9 g/dl (32.0-36.5); MEAN CORPUSCULAR VOLUME 101.8 fl (80.0-96.0); PLATELET COUNT, AUTOMATED 256 10^3/uL (150-450); RED BLOOD COUNT 4.89 10^6/uL (4.30-6.10); WHITE BLOOD COUNT 8.3 10^3/uL (4.0-10.0)
[2019-09-20 13:25] LABS: BLOOD UREA NITROGEN 14 MG/DL (7-18); CALCIUM LEVEL 8.8 MG/DL (8.8-10.2); CARBON DIOXIDE LEVEL 26 MEQ/L (21-32); CHLORIDE LEVEL 108 MEQ/L (98-107); CREATININE FOR GFR 1.05 MG/DL (0.70-1.30); GLOMERULAR FILTRATION RATE > 60.0 (>49); GLUCOSE, FASTING 97 MG/DL (70-100); POTASSIUM SERUM 4.4 MEQ/L (3.5-5.1); SODIUM LEVEL 140 MEQ/L (136-145)
== END ==
LOC: M LABDRAWP 12:44
PROVIDERS: ATTEND Physician Assistant
DX: I70.213 Atherosclerosis of native arteries of extremities with intermittent claudication, bilateral legs (principal)

== ENCOUNTER → 2019-10-18 | Outpatient (CLI) | payer MEDICARE, MEDICAID ==
[~2019-10-18] MED LIST changes: +CLOP75TA2 PO; +CLOPIDOGREL 75 MG TAB As Ordered ONE; +CLOPIDOGREL 75 MG TAB PO ONE; +HEPARIN 1,000 UNITS/ML 10ML VIAL (FOR RADIOLOGY& DIALYSIS ONLY) As Ordered ONE; +ISOVUE-300 61% 50ML VIAL (Q9967) As Ordered ONE; +LIDOCAINE 1% MDV 20ML VIAL As Ordered ONE; +MIDAZOLAM INJ 2 MG/2 ML VIAL (J2250) As Ordered ONE; +fentaNYL 100 MCG/2 ML INJECTION (J3010) As Ordered ONE
--- NOTE | 2019-10-18 11:24 | ROOPDOC ---
[facility] Report Of Operation Report of Operation DATE OF PROCEDURE: 10/18/19 PREPROCEDURE DIAGNOSES: Atherosclerosis of the [place] vessels with claudication left foot pain POSTPROCEDURE DIAGNOSES: Same PROCEDURE: 1. Ultrasound-guided access right common femoral artery 2. Aortoiliofemoral arteriogram 3. 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 Angioplasty left common iliac and external iliac artery with 8 x 100 [place] balloon 5. Stent left common iliac artery with 9 x 57 balloon expandable stent 6. Completion arteriogram 7. Selection left superficial femoral artery and left lower extremity runoff 8. Mynx closure right common femoral artery SURGEON: Mina Partida MD ANESTHESIA: Local anesthesia 6 mL lidocaine. Moderate intravenous conscious sedation was supervised by Dr. Partida. The patient was independently monitored by registered nurse assigned to the Department of radiology using automated blood pressure, EKG, and pulse oximetry. The detailed sedation record is probably started in the hospital information system. The following is a brief sedation record: Start time 10:06, stop time 10:53, Versed 0.5 mg IV, fentanyl 25 g IV, heparin 5000 units IV. CONTRAST: 43 mL of Isovue-300 INDICATION FOR PROCEDURE: This is a very pleasant 63-year-old gentleman with peripheral vascular disease, claudication, and left foot toe pain. He had a CTA that revealed significant left common iliac artery stenosis with near occlusion and single-vessel runoff to the foot through the anterior tibial artery. Risks benefits and alternatives to an arteriogram and potential intervention were explained to the patient is agreeable to proceed. Informed consent was obtained. INTERPRETATION: 1. The right aortoiliac inflow is widely patent. There is some calcification in the right common femoral artery bleeding into the proximal SFA. The left common iliac artery has a 95% stenosis proximally and 70% stenosis distally. The external iliac is narrow but patent. The common femoral artery profunda inordinately SFA are widely patent. 2. After angioplasty of the left common iliac artery, there is a significant improvement in flow but still residual stenosis and bulky plaque. After placing a 9 x 57 balloon expandable stent, there was widely patent inflow with no flow- limiting stenosis. No extravasation, dissection, or embolizations noted. 3. Runoff of the left lower extremity reveals widely patent rapid flow through the SFA and popliteal artery to the tibial vessel. The anterior tibial is the only patent vessel to the foot, but it is very large and flow is rapid. At the ankle and foot it collateralizes to provide flow to the rest of the foot. The tibioperoneal trunk, posterior tibial artery common peroneal artery are barely visualized near the origins and completely occluded in the upper mid and lower calf. They do not reconstitute. REPORT OF OPERATION: Patient was brought to the angiographic suite in stable condition. His bilateral groins were prepped and draped in a sterile fashion. A timeout was performed. Sedation was administered without complication. Local anesthesia was a airplane engineer to the skin and subcutaneous tissue over the right groin and a microneedle was used to access the right common femoral artery under ultrasound guidance. There was notable plaque in the proximal SFA and common femoral artery on ultrasound. We access just above the area of heavy plaque and advanced a wire into the iliac system under fluoroscopic guidance. The needle was removed and a micro-sheath was placed. Through this access a Glidewire was advanced into the aorta under fluoroscopic guidance in the sheath was exchanged for 6 [place] sheath and flushed with saline. We then performed and it aortoiliofemoral arteriogram with a contra catheter and findings are above. Next, we utilized a Glidewire and a contra catheter to go up and over the bifurcation. It took a bit of time to navigate the wire through the near occlusion in the common iliac artery, but eventually we were able to spin the wire down into the SFA. We then advanced an 8 x 100 [place]burn balloon across the areas of stenosis in the common iliac artery and proximal external iliac artery and angioplasty for three-minute inflations. Following this there was improvement in flow but still residual bulky plaque and stenosis. We then exchanged the sheath for 25 cm 7 Citizen [place] sheath and flushed the sheath with saline. A quick contrast injection identified R area of desired stenting and we advanced a 9 x 57 balloon expandable stent across the area endplate the stent without difficulty. Arteriogram through the sheath that showed widely patent flow and we were really pleased with the outcome. Next, we advanced the contra catheter over the wire into the SFA and performed a left lower extremity runoff. Please see findings above. I did not feel that we would be able to restore flow to the peroneal or the posterior tibial artery since they were barely visible and did not reconstitute. The anterior tibial artery, although single tibial runoff, is large in size and collateralizes well at the ankle and foot. Hopefully by improving inflow we will dramatically improve flow to the foot. This concluded our procedure. We exchanges sheath for short 7 [place] sheath and platelet Mynx closure device with good hemostasis. Pressure was held for 10 minutes and the patient was taken to recovery in stable condition. ESTIMATED BLOOD LOSS: Approximately 5 mL. COMPLICATIONS: None. PLAN: We will start the patient on Plavix due to stent placement. He will need to stay on this for 60 days. He can resume his home medications. If he also takes aspirin, he should continue this. After 60 days, we will be able to discontinue the Plavix. He will return in a week so we can check his groin access site and see how he is doing. MINA PARTIDA MD Oct 18, 2019 11:24
[2019-10-18 15:07] VITALS: BP 105/59
== END ==
LOC: M IRPRO 08:40
PROVIDERS: ATTEND Surgery Vascular Surgery
DX: I70.212 Atherosclerosis of native arteries of extremities with intermittent claudication, left leg (principal); I70.222 Atherosclerosis of native arteries of extremities with rest pain, left leg; I70.92 Chronic total occlusion of artery of the extremities
CPT/HCPCS: 37221; 37222; 75710; 99152; 99153; C1725; C1760; C1769; C1876; C1887; C1894; J2250; J3010; Q9967

== ENCOUNTER 2020-05-10 19:05 | Emergency (ER) | payer MEDICARE, MEDICAID ==
[~2020-05-10 19:05] MED LIST changes: +ASPI-546 PO; -ASPI1TAB15 PO; -CLOPIDOGREL 75 MG TAB As Ordered ONE; -CLOPIDOGREL 75 MG TAB PO ONE; -HEPARIN 1,000 UNITS/ML 10ML VIAL (FOR RADIOLOGY& DIALYSIS ONLY) As Ordered ONE; -ISOVUE-300 61% 50ML VIAL (Q9967) As Ordered ONE; -LIDOCAINE 1% MDV 20ML VIAL As Ordered ONE; -MIDAZOLAM INJ 2 MG/2 ML VIAL (J2250) As Ordered ONE; -fentaNYL 100 MCG/2 ML INJECTION (J3010) As Ordered ONE
[2020-05-10] MEDS ORDERED: NORCO, ANEXSIA 5/325MG TABLET (HYDROcodone/ACETAMINOPHEN) As Ordered ONE (21:28)
[2020-05-10] MEDS ORDERED: NORCO 5/325MG TABLET (BULK FOR ED) As Ordered ONE (21:29)
[2020-05-10] MEDS ORDERED: NORCO 5/325MG TABLET (BULK FOR ED) ONE (21:31)
[2020-05-10] MEDS ORDERED: APIXABAN 5 MG TAB (ELIQUIS) ONE (21:31)
[2020-05-10] MEDS ORDERED: APIXABAN 5 MG TAB (ELIQUIS) As Ordered ONE (21:31)
[2020-05-10] MEDS ORDERED: NORCO, ANEXSIA 5/325MG TABLET (HYDROcodone/ACETAMINOPHEN) ONE (21:31)
== END 2020-05-10 21:24 | disposition home or self-care (01) ==
LOC: M ED 19:05
DX: I82.411 Acute embolism and thrombosis of right femoral vein (principal); C71.9 Malignant neoplasm of brain, unspecified; G40.909 Epilepsy, unspecified, not intractable, without status epilepticus; F17.290 Nicotine dependence, other tobacco product, uncomplicated; Z79.899 Other long term (current) drug therapy

== ENCOUNTER → 2020-06-12 | Outpatient (CLI) | payer MEDICARE, MEDICAID ==
--- NOTE | 2020-08-07 16:39 | REP ---
INDICATION: ATHSCL [place] ARTERIES OF EXTRM W INTRMT RAMOS,BI LEGS. Repeat dictation. COMPARISON: Status post left iliac are artery angioplasty.. TECHNIQUE: Duplex arterial bilateral lower extremity ultrasound. FINDINGS: Incidental note is made of nonocclusive deep vein thrombosis involving the popliteal vein on the right. This was noted on May 10, 2020 prior study venous study. Ankle brachial index maneuver was not performed on the right because of this. On the left the ankle brachial index is 1.23. Reverse flow is seen in the left distal posterior tibial artery. Moderate plaquing is observed. There is evidence of stenotic flow in the right common femoral artery. Mild stenosis visible in the proximal superficial femoral artery on the left. The the mid to distal posterior tibial artery on the left is occluded with reversed flow at the ankle. The distal portion of the profundal femoral artery on the left contains some thrombus and displace monophasic waveform. Right lower extremity arterial Doppler velocity chart: Right FRONT DESK MANAGER PSV 82/220 cm/S Profundal 252 Proximal SFA 228 Mid SFA 103 Distal SFA 122 Popliteal 88 Proximal ES 108 Tibial-peroneal trunk 51 Proximal FLEET MANAGER 61 Distal FLEET MANAGER 47 Distal ES 43 Left lower extremity arterial Doppler velocity chart: Left FRONT DESK MANAGER PSV 84 cm/S Profundal 147 Proximal SFA 82/150 Mid SFA 93 Distal SFA 94 Popliteal 51 Proximal ES 121 Tibial-peroneal trunk 39/95 Proximal FLEET MANAGER 102 Distal FLEET MANAGER occluded/reversed Distal ES 55 IMPRESSION: Atherosclerotic changes as noted above. Incidental thrombosis nonocclusive right popliteal vein again seen. <Electronically signed by Cassius Bhardwaj > 08/07/20 [id number]
== END ==
LOC: M RAD 12:03
PROVIDERS: ATTEND Surgery Vascular Surgery
DX: I70.213 Atherosclerosis of native arteries of extremities with intermittent claudication, bilateral legs (principal); I82.431 Acute embolism and thrombosis of right popliteal vein

== ENCOUNTER → 2020-10-11 | Outpatient (CLI) | payer MEDICARE, MEDICAID ==
--- NOTE | 2020-10-11 13:16 | REP ---
INDICATION: ACUTE EMBOLISM AND THROMBOSIS COMPARISON: None. TECHNIQUE: Sanchez scale and color Doppler evaluation bilateral lower extremities using linear high frequency transducer. FINDINGS: Right lower extremity demonstrates nonocclusive mural thrombus from the common femoral vein to the popliteal vein which is considerably improved when compared to 05/10/2020 and likely chronic. Left lower extremity demonstrates normal venous flow characteristics without evidence for thrombus. IMPRESSION: 1. Chronic residual nonocclusive thrombus in the right lower extremity from the common femoral vein to the popliteal vein significantly improved from prior examination. 2. Normal left lower extremity without DVT. <Electronically signed by Alejandro Hoang > 10/11/20 [id number]
== END ==
LOC: M RAD 12:31
PROVIDERS: ATTEND Physician Assistant
DX: I82.512 Chronic embolism and thrombosis of left femoral vein (principal); I82.532 Chronic embolism and thrombosis of left popliteal vein

== ENCOUNTER → 2020-10-18 | Outpatient (REF) | payer MEDICARE, MEDICAID ==
[~2020-10-18] MED LIST changes: +ESCI10TA16 PO; -ESCI10TA2 PO; -ESCI20TA PO; +ESCI20TA16 PO; +GABA-282; +GABA-282 PO; -GABA-843; -GABA-843 PO
[2020-10-18 13:42] LABS: BASO # 0.1 10^3/uL (0.0-0.2); EOS # 0.1 10^3/uL (0.0-0.5); EOS % 2.1 % (0.0-3.0); HEMOGLOBIN 16.1 g/dl (13.5-17.5); LYMPH # 2.3 10^3/uL (1.5-5.0); LYMPH % 44.9 % (24.0-44.0); MEAN CORPUSCULAR HEMOGLOBIN 31.6 pg (27.0-33.0); MEAN CORPUSCULAR HGB CONC 32.2 g/dl (32.0-36.5); MONO # 0.8 10^3/uL (0.0-0.8); MONO % 15.6 % (0.0-5.0); NEUTROPHILS # 1.9 10^3/uL (1.5-8.5); NEUTROPHILS % 36.2 % (36.0-66.0); PLATELET COUNT, AUTOMATED 246 10^3/uL (150-450); WHITE BLOOD COUNT 5.1 10^3/uL (4.0-10.0)
[2020-10-18 14:00] LABS: ALBUMIN 3.7 GM/DL (3.2-5.2); ALT/SGPT 16 U/L (12-78); BILIRUBIN,TOTAL 0.2 MG/DL (0.2-1.0); BLOOD UREA NITROGEN 16 MG/DL (7-18); CALCIUM LEVEL 8.7 MG/DL (8.8-10.2); CARBON DIOXIDE LEVEL 29 MEQ/L (21-32); CHLORIDE LEVEL 105 MEQ/L (98-107); CHOLESTEROL LEVEL 264 MG/DL (<200); CREATININE FOR GFR 1.08 MG/DL (0.70-1.30); FREE T4 0.61 NG/DL (0.76-1.46); GLOMERULAR FILTRATION RATE > 60.0 (>49); GLUCOSE, FASTING 101 MG/DL (70-100); HDL CHOLESTEROL 100 MG/DL (>40); LDL CHOLESTEROL 154 MG/DL (<100); NON-HDL-C 164 MG/DL; PHENYTOIN (DILANTIN) 17.3 UG/ML (10.0-20.0); POTASSIUM SERUM 4.4 MEQ/L (3.5-5.1); SODIUM LEVEL 139 MEQ/L (136-145); TOTAL PROTEIN 7.1 GM/DL (6.4-8.2); TRIGLYCERIDES LEVEL 49 MG/DL (<150)
[2020-10-18 14:02] LABS: HEMOGLOBIN A1c 5.1 %
== END ==
LOC: M SFHCPLAZ 10:15
PROVIDERS: ATTEND Family Medicine
DX: I70.202 Unspecified atherosclerosis of native arteries of extremities, left leg (principal); G40.909 Epilepsy, unspecified, not intractable, without status epilepticus; F41.8 Other specified anxiety disorders; Z13.220 Encounter for screening for lipoid disorders; Z79.899 Other long term (current) drug therapy

== ENCOUNTER → 2020-12-06 | Outpatient (CLI) | payer MEDICARE, MEDICAID ==
--- NOTE | 2020-12-06 12:59 | REP ---
INDICATION: ACUTE EMBOL /THROMBO OF RT FERM VEIN COMPARISON: 10/11/2020, 05/10/2020 TECHNIQUE: Sanchez scale and color Doppler evaluation bilateral lower extremities using linear high frequency transducer. FINDINGS: Left lower extremity demonstrates normal vascularity without evidence for deep venous thrombosis and includes 2.2 x 1.2 x 0.5 cm Carey's cyst in the popliteal fossa. Right lower extremity demonstrates nonocclusive thrombus from the common femoral vein to the popliteal vein which are is previously partially occlusive on 05/10/2020 examination. IMPRESSION: 1. Nonocclusive thrombus in the right lower extremity from the common femoral vein to the popliteal vein possibly chronic. 2. Small Carey's cyst in the left popliteal fossa. <Electronically signed by Alejandro Hoang > 12/06/20 [id number]
== END ==
LOC: M RAD 12:12
PROVIDERS: ATTEND Physician Assistant
DX: I82.411 Acute embolism and thrombosis of right femoral vein (principal); M71.22 Synovial cyst of popliteal space [Baker], left knee; Z86.718 Personal history of other venous thrombosis and embolism

== ENCOUNTER → 2021-01-08 | Outpatient (CLI) | payer MEDICARE, MEDICAID ==
--- NOTE | 2021-01-08 16:35 | REP ---
INDICATION: ATHSCL QAGAN TAYAGUNGIN ARTER W/ CLAUDICATION GIULIA LEGS COMPARISON: 06/12/2020. TECHNIQUE: Real time sanchez scale and Duplex Doppler evaluation of the bilateral lower extremity arterial vasculature using linear high frequency transducer. FINDINGS: Sanchez scale and duplex doppler images demonstrate moderate to severe plaque bilaterally. There is approximately 4-1 stenosis of the proximal right profunda artery and 3-1 stenosis of the proximal right superficial femoral artery. There is reversal of flow in the distal left posterior tibial artery compatible with a more proximal occlusion. The distal right posterior tibial artery is reconstituted at the level of the ankle. Diffuse triphasic and biphasic waveforms are seen bilaterally with monophasic waveform in the distal posterior tibial artery. Peak systolic velocities (cm/sec) Common femoral artery: Right 100; Left 94 Profunda femoris: Right 383; Left 129 SFA (proximal): Right 352; Left 118 SFA (mid): Right 80; Left 75 SFA (distal): Right 83; Left 58 Popliteal artery: Right 58; Left 46 ES (prox.): Right 63; Left 79 Tibioperoneal trunk: Right 50; Left 36 PLATE STACKER HAND (prox.): Right 54; Left 68 PLATE STACKER HAND (distal): Right 41; Left 10 ES (distal): Right 26; Left 85 IMPRESSION: Moderate to severe plaquing bilaterally. Stenosis proximal right profunda and SFA. Reversal distal left PLATE STACKER HAND compatible with a more proximal occlusion of the left PLATE STACKER HAND. <Electronically signed by Calin Sanchez > 01/08/21 1997
== END ==
LOC: M RAD 14:24
PROVIDERS: ATTEND Surgery Vascular Surgery
DX: I70.213 Atherosclerosis of native arteries of extremities with intermittent claudication, bilateral legs (principal)

== ENCOUNTER → 2021-06-18 | Outpatient (CLI) | payer MEDICARE, MEDICAID | LOC: M WUC 14:50 | PROVIDERS: ATTEND Physician Assistant Medical | DX: R56.9 Unspecified convulsions (principal) ==

== ENCOUNTER → 2021-07-09 | Outpatient (CLI) | payer MEDICARE, MEDICAID ==
[2021-07-09 17:23] LABS: FREE T4 0.6 NG/DL (0.76-1.46); THYROID STIMULATING HORMONE 0.732 uIU/ML (0.358-3.740)
== END ==
LOC: M WUC 13:49
PROVIDERS: ATTEND Student in an Organized Health Care Education/Training Program
DX: R79.89 Other specified abnormal findings of blood chemistry (principal)

== ENCOUNTER → 2022-04-10 | Outpatient (CLI) | payer MEDICARE, MEDICAID ==
[2022-04-10 12:43] LABS: HEMATOCRIT 40.6 % (42.0-52.0); HEMOGLOBIN 13.3 g/dl (13.5-17.5); MEAN CORPUSCULAR HEMOGLOBIN 30.9 pg (27.0-33.0); MEAN CORPUSCULAR HGB CONC 32.8 g/dl (32.0-36.5); MEAN CORPUSCULAR VOLUME 94.2 fl (80.0-96.0); PLATELET COUNT, AUTOMATED 214 10^3/uL (150-450); RED BLOOD COUNT 4.31 10^6/uL (4.30-6.10); WHITE BLOOD COUNT 6.1 10^3/uL (4.0-10.0)
[2022-04-10 13:21] LABS: ALBUMIN 3.7 GM/DL (3.2-5.2); ALT/SGPT 23 U/L (12-78); BILIRUBIN,TOTAL 0.3 MG/DL (0.2-1.0); BLOOD UREA NITROGEN 15 MG/DL (7-18); CALCIUM LEVEL 8.7 MG/DL (8.8-10.2); CARBON DIOXIDE LEVEL 24 MEQ/L (21-32); CHLORIDE LEVEL 109 MEQ/L (98-107); CHOLESTEROL LEVEL 202 MG/DL (<200); CHOLESTEROL RISK RATIO 1.887 (<5); GLOMERULAR FILTRATION RATE > 60.0 (>49); GLUCOSE, FASTING 84 MG/DL (70-100); HDL CHOLESTEROL 107 MG/DL (>40); LDL CHOLESTEROL 86 MG/DL (<100); NON-HDL-C 95 MG/DL; POTASSIUM SERUM 4.1 MEQ/L (3.5-5.1); SODIUM LEVEL 141 MEQ/L (136-145); TRIGLYCERIDES LEVEL 44 MG/DL (<150)
[2022-04-10 14:28] LABS: HEMOGLOBIN A1c 5.2 %
== END ==
LOC: M WUC 09:12
PROVIDERS: ATTEND Student in an Organized Health Care Education/Training Program
DX: G47.33 Obstructive sleep apnea (adult) (pediatric) (principal); Z13.29 Encounter for screening for other suspected endocrine disorder; Z13.220 Encounter for screening for lipoid disorders; Z13.1 Encounter for screening for diabetes mellitus; Z79.899 Other long term (current) drug therapy

== ENCOUNTER 2023-02-01 14:18 | Inpatient (IN) | payer MEDICARE, MEDICAID ==
[~2023-02-01] VITALS: Ht 167.6 cm; Wt 67.9 kg
[2023-02-01] MEDS ORDERED: ATOR80TA59 (14:43)
[2023-02-01] MEDS ORDERED: ELIQ5TAB (14:43)
[2023-02-01] MEDS ORDERED: QUET1TAB17 (14:43)
[2023-02-01] MEDS ORDERED: BRIM1OPD (14:43)
[2023-02-01] MEDS ORDERED: GABAPENTIN 100 MG CAP PO ONE (16:20)
[2023-02-01 19:08] LABS: BASO # 0.1 10^3/uL (0.0-0.2); BASO % 0.7 % (0.0-1.0); EOS # 0.1 10^3/uL (0.0-0.5); EOS % 1.4 % (0.0-3.0); HEMATOCRIT 35.6 % (42.0-52.0); HEMOGLOBIN 11.4 g/dl (13.5-17.5); LYMPH # 1.8 10^3/uL (1.5-5.0); LYMPH % 24.9 % (24.0-44.0); MEAN CORPUSCULAR HEMOGLOBIN 28.4 pg (27.0-33.0); MEAN CORPUSCULAR VOLUME 88.8 fl (80.0-96.0); MONO # 1.1 10^3/uL (0.0-0.8); MONO % 15.5 % (2.0-8.0); NEUTROPHILS # 4.2 10^3/uL (1.5-8.5); NEUTROPHILS % 57.4 % (36.0-66.0); PLATELET COUNT, AUTOMATED 218 10^3/uL (150-450); RED BLOOD COUNT 4.01 10^6/uL (4.30-6.10); WHITE BLOOD COUNT 7.4 10^3/uL (4.0-10.0)
[2023-02-01 19:28] LABS: LIPASE 26 U/L (12-53)
[2023-02-01 19:31] LABS: ALBUMIN 3.5 G/DL (3.2-5.2); ALKALINE PHOSPHATASE 125 U/L (46-116); ALT/SGPT 14 U/L (7.0-40); AST/SGOT 22 U/L (<34); BILIRUBIN,DIRECT 0.1 MG/DL (<0.4); BILIRUBIN,TOTAL 0.3 MG/DL (0.3-1.2); BLOOD UREA NITROGEN 22 MG/DL (9-23); CALCIUM LEVEL 8.3 MG/DL (8.3-10.6); CARBON DIOXIDE LEVEL 25 MMOL/L (20-31); CHLORIDE LEVEL 108 MMOL/L (98-107); CREATININE FOR GFR 0.73 MG/DL (0.70-1.30); GLOMERULAR FILTRATION RATE > 60.0 (>49); GLUCOSE, FASTING 86 MG/DL (74-106); SODIUM LEVEL 141 MMOL/L (136-145); TOTAL PROTEIN 6.9 G/DL (5.7-8.2)
[2023-02-01 19:58] LABS: RSV AMPLIFICATION NEGATIVE (NEGATIVE)
[2023-02-01] MEDS ORDERED: ACETAMINOPHEN TAB 650MG DOSE (2X325MG) PO PRN (21:05)
[2023-02-01] MEDS ORDERED: PERCOCET 5MG/325MG TAB PO PRN (21:10)
[2023-02-01] MEDS ORDERED: BRIM1OPD OU (21:24)
[2023-02-01] MEDS ORDERED: ELIQ5TAB PO (21:24)
[2023-02-01] MEDS ORDERED: GABA-283 PO ×2 (21:24→21:47)
[2023-02-01] MEDS ORDERED: HYDR50TA70 PO (21:24)
[2023-02-01] MEDS ORDERED: XALA0.007 OU (21:24)
[2023-02-01] MEDS ORDERED: QUET1TAB17 PO (21:24)
[2023-02-01] MEDS ORDERED: ATOR80TA59 PO (21:24)
[2023-02-01] MEDS ORDERED: HOME MED LIST COMPLETE! XX SCH (21:25)
[2023-02-01] MEDS ORDERED: NICOTINE 21MG/24HR 1 EA TRANSDERMAL TD PRN (23:10)
[2023-02-01 23:27] VITALS: BP 127/77
[2023-02-01] MEDS: PERCOCET 5MG/325MG TAB PO PRN (23:52)
[2023-02-02 05:56] LABS: HEMATOCRIT 35.8 % (42.0-52.0); HEMOGLOBIN 11.4 g/dl (13.5-17.5); MEAN CORPUSCULAR HEMOGLOBIN 28.4 pg (27.0-33.0); MEAN CORPUSCULAR HGB CONC 31.8 g/dl (32.0-36.5); MEAN CORPUSCULAR VOLUME 89.3 fl (80.0-96.0); PLATELET COUNT, AUTOMATED 211 10^3/uL (150-450); RED BLOOD COUNT 4.01 10^6/uL (4.30-6.10); WHITE BLOOD COUNT 6.6 10^3/uL (4.0-10.0)
[2023-02-02 06:27] LABS: BLOOD UREA NITROGEN 23 MG/DL (9-23); CALCIUM LEVEL 8.1 MG/DL (8.3-10.6); CARBON DIOXIDE LEVEL 25 MMOL/L (20-31); CHLORIDE LEVEL 109 MMOL/L (98-107); CREATININE FOR GFR 0.63 MG/DL (0.70-1.30); GLOMERULAR FILTRATION RATE > 60.0 (>49); GLUCOSE, FASTING 85 MG/DL (74-106); MAGNESIUM LEVEL 2.1 MG/DL (1.8-2.4); POTASSIUM SERUM 3.7 MMOL/L (3.5-5.1); SODIUM LEVEL 141 MMOL/L (136-145)
[2023-02-02 06:29] VITALS: BP 114/68
[2023-02-02] MEDS: PERCOCET 5MG/325MG TAB PO PRN (08:39)
[2023-02-02] MEDS ORDERED: APIXABAN 5 MG TAB (ELIQUIS) PO SCH ×2 (09:00→12:00)
[2023-02-02] MEDS ORDERED: BRIMONIDINE 0.1% OPHTH SOLN 5ML OU SCH (09:00)
[2023-02-02] MEDS ORDERED: ESCITALOPRAM OXALATE 10 MG TAB (LEXAPRO) PO SCH (09:00)
[2023-02-02] MEDS ORDERED: GABAPENTIN 400MG CAP PO SCH ×2 (09:00→21:00)
[2023-02-02] MEDS ORDERED: PHENYTOIN ER 100 MG CAP PO SCH (09:00)
[2023-02-02] MEDS ORDERED: ATORVASTATIN 20 MG TAB PO SCH (09:00)
[2023-02-02] MEDS ORDERED: PERCOCET PO (13:29)
[2023-02-02] MEDS ORDERED: QUEtiapine FUMARATE 25 MG TAB PO SCH (21:00)
[2023-02-02] MEDS ORDERED: LATANOPROST 0.005% OPHTH SOLN 2.5 ML OU SCH (21:00)
[2023-02-02] MEDS ORDERED: hydrOXYzine 50 MG TAB PO SCH (21:00)
== END 2023-02-02 14:00 | DRG 536 ==
LOC: EDBD 14:18 → M ED 14:18 → M ED INP 21:01 → ENRESERV 22:51 → M MS5PR 23:18
PROVIDERS: ADMIT Internal Medicine; ATTEND Internal Medicine
DX: S72.111A Displaced fracture of greater trochanter of right femur, initial encounter for closed fracture (principal); W01.0XXA Fall on same level from slipping, tripping and stumbling without subsequent striking against object, initial encounter; Y92.010 Kitchen of single-family (private) house as the place of occurrence of the external cause; Y93.89 Activity, other specified; Y99.8 Other external cause status; F70 Mild intellectual disabilities; G40.909 Epilepsy, unspecified, not intractable, without status epilepticus; E78.5 Hyperlipidemia, unspecified; I70.203 Unspecified atherosclerosis of native arteries of extremities, bilateral legs; G47.33 Obstructive sleep apnea (adult) (pediatric); M48.02 Spinal stenosis, cervical region; G93.89 Other specified disorders of brain; M16.11 Unilateral primary osteoarthritis, right hip; F41.9 Anxiety disorder, unspecified; F32.A Depression, unspecified; G31.9 Degenerative disease of nervous system, unspecified; F17.200 Nicotine dependence, unspecified, uncomplicated; Z86.79 Personal history of other diseases of the circulatory system; G62.9 Polyneuropathy, unspecified; Z86.718 Personal history of other venous thrombosis and embolism; Z79.01 Long term (current) use of anticoagulants; Z79.899 Other long term (current) drug therapy; Z95.828 Presence of other vascular implants and grafts

== ENCOUNTER 2023-02-02 14:10 | Inpatient (IN) | payer MEDICARE, MEDICAID ==
[~2023-02-02] VITALS: Ht 167.6 cm; Wt 67.9 kg
[~2023-02-02 14:10] MED LIST changes: +ATOR80TA59; +ATOR80TA59 PO; +BRIM1OPD; +BRIM1OPD OU; +ELIQ5TAB; +GABA-283 PO; +PERCOCET PO; +QUET1TAB17; +QUET1TAB17 PO; +XALA0.007 OU
[2023-02-02 14:30] VITALS: BP 129/67
[2023-02-02] MEDS ORDERED: BISACODYL 10MG SUPP PR PRN (14:35)
[2023-02-02] MEDS ORDERED: oxyCODONE 5MG TAB PO PRN (14:35)
[2023-02-02] MEDS: ACETAMINOPHEN 500 MG TAB PO SCH ×2 (16:09→20:57)
[2023-02-02 20:00] VITALS: BP 102/59
[2023-02-02] MEDS: PHENYTOIN ER 100 MG CAP PO SCH (20:56)
[2023-02-02] MEDS: PANTOPRAZOLE 40MG TAB (PROTONIX) PO SCH (20:56)
[2023-02-02] MEDS: SENNA 8.6 MG TAB (SENOKOT) PO SCH (20:56)
[2023-02-02] MEDS: DOCUSATE SODIUM 100MG CAPSULE PO SCH (20:56)
[2023-02-02] MEDS: APIXABAN 5 MG TAB (ELIQUIS) PO SCH (20:56)
[2023-02-02] MEDS: GABAPENTIN 400MG CAP PO SCH (20:56)
[2023-02-02] MEDS: LATANOPROST 0.005% OPHTH SOLN 2.5 ML OU SCH (20:57)
[2023-02-02] MEDS: QUEtiapine FUMARATE 50MG TAB PO SCH (20:57)
[2023-02-02] MEDS: BRIMONIDINE 0.1% OPHTH SOLN 5ML OU SCH (20:57)
[2023-02-03 06:00] VITALS: BP 116/51
[2023-02-03 06:56] LABS: BASO # 0.1 10^3/uL (0.0-0.2); BASO % 1.2 % (0.0-1.0); EOS # 0.3 10^3/uL (0.0-0.5); EOS % 3.8 % (0.0-3.0); HEMATOCRIT 34.7 % (42.0-52.0); LYMPH # 2.8 10^3/uL (1.5-5.0); LYMPH % 40.5 % (24.0-44.0); MEAN CORPUSCULAR HEMOGLOBIN 28.3 pg (27.0-33.0); MEAN CORPUSCULAR HGB CONC 31.7 g/dl (32.0-36.5); MEAN CORPUSCULAR VOLUME 89.2 fl (80.0-96.0); MONO % 14.8 % (2.0-8.0); NEUTROPHILS # 2.7 10^3/uL (1.5-8.5); NEUTROPHILS % 39.4 % (36.0-66.0); PLATELET COUNT, AUTOMATED 220 10^3/uL (150-450); RED BLOOD COUNT 3.89 10^6/uL (4.30-6.10); WHITE BLOOD COUNT 6.9 10^3/uL (4.0-10.0)
[2023-02-03 07:22] LABS: ALBUMIN 3.2 G/DL (3.2-5.2); ALKALINE PHOSPHATASE 110 U/L (46-116); ALT/SGPT 11 U/L (7.0-40); AST/SGOT 20 U/L (<34); BILIRUBIN,TOTAL 0.3 MG/DL (0.3-1.2); BLOOD UREA NITROGEN 19 MG/DL (9-23); CALCIUM LEVEL 8.2 MG/DL (8.3-10.6); CARBON DIOXIDE LEVEL 28 MMOL/L (20-31); CHLORIDE LEVEL 109 MMOL/L (98-107); CREATININE FOR GFR 0.73 MG/DL (0.70-1.30); GLOMERULAR FILTRATION RATE > 60.0 (>49); GLUCOSE, FASTING 90 MG/DL (74-106); SODIUM LEVEL 140 MMOL/L (136-145); TOTAL PROTEIN 6.4 G/DL (5.7-8.2)
[2023-02-03] MEDS: DOCUSATE SODIUM 100MG CAPSULE PO SCH ×2 (09:00→21:13)
[2023-02-03] MEDS: PANTOPRAZOLE 40MG TAB (PROTONIX) PO SCH ×2 (09:25→21:13)
[2023-02-03] MEDS: APIXABAN 5 MG TAB (ELIQUIS) PO SCH ×2 (09:25→21:13)
[2023-02-03] MEDS: PHENYTOIN ER 100 MG CAP PO SCH ×2 (09:25→21:11)
[2023-02-03] MEDS: ESCITALOPRAM OXALATE 10 MG TAB (LEXAPRO) PO SCH (09:26)
[2023-02-03] MEDS: GABAPENTIN 400MG CAP PO SCH ×2 (09:26→21:12)
[2023-02-03] MEDS: ACETAMINOPHEN 500 MG TAB PO SCH ×3 (09:26→21:15)
[2023-02-03] MEDS: ATORVASTATIN 20 MG TAB PO SCH (09:26)
[2023-02-03] MEDS: BRIMONIDINE 0.1% OPHTH SOLN 5ML OU SCH ×2 (09:27→21:19)
[2023-02-03] MEDS: NICOTINE 21MG/24HR 1 EA TRANSDERMAL TD SCH (09:27)
[2023-02-03 14:00] VITALS: BP 118/60
[2023-02-03] MEDS: LIDOCAINE 5% (LIDODERM) PATCH TD SCH (17:36)
[2023-02-03 20:18] VITALS: BP 130/66
[2023-02-03] MEDS: SENNA 8.6 MG TAB (SENOKOT) PO SCH (21:12)
[2023-02-03] MEDS: QUEtiapine FUMARATE 50MG TAB PO SCH (21:12)
[2023-02-03] MEDS: LATANOPROST 0.005% OPHTH SOLN 2.5 ML OU SCH (21:19)
[2023-02-04 06:00] VITALS: BP 113/65
[2023-02-04 06:37] LABS: BASO # 0.1 10^3/uL (0.0-0.2); EOS # 0.2 10^3/uL (0.0-0.5); EOS % 3.5 % (0.0-3.0); HEMATOCRIT 32.6 % (42.0-52.0); HEMOGLOBIN 10.3 g/dl (13.5-17.5); LYMPH # 2.2 10^3/uL (1.5-5.0); LYMPH % 37.4 % (24.0-44.0); MEAN CORPUSCULAR HEMOGLOBIN 28.5 pg (27.0-33.0); MEAN CORPUSCULAR HGB CONC 31.6 g/dl (32.0-36.5); MEAN CORPUSCULAR VOLUME 90.1 fl (80.0-96.0); MONO # 0.9 10^3/uL (0.0-0.8); MONO % 16.3 % (2.0-8.0); NEUTROPHILS # 2.4 10^3/uL (1.5-8.5); NEUTROPHILS % 41.5 % (36.0-66.0); PLATELET COUNT, AUTOMATED 209 10^3/uL (150-450); RED BLOOD COUNT 3.62 10^6/uL (4.30-6.10); WHITE BLOOD COUNT 5.8 10^3/uL (4.0-10.0)
[2023-02-04 07:08] LABS: BLOOD UREA NITROGEN 22 MG/DL (9-23); CALCIUM LEVEL 7.9 MG/DL (8.3-10.6); CARBON DIOXIDE LEVEL 25 MMOL/L (20-31); CHLORIDE LEVEL 111 MMOL/L (98-107); CREATININE FOR GFR 0.68 MG/DL (0.70-1.30); GLOMERULAR FILTRATION RATE > 60.0 (>49); GLUCOSE, FASTING 105 MG/DL (74-106); POTASSIUM SERUM 3.8 MMOL/L (3.5-5.1); SODIUM LEVEL 141 MMOL/L (136-145)
[2023-02-04] MEDS: DOCUSATE SODIUM 100MG CAPSULE PO SCH ×2 (09:00→20:23)
[2023-02-04] MEDS: PANTOPRAZOLE 40MG TAB (PROTONIX) PO SCH ×2 (09:18→20:23)
[2023-02-04] MEDS: APIXABAN 5 MG TAB (ELIQUIS) PO SCH ×2 (09:18→20:23)
[2023-02-04] MEDS: NICOTINE 21MG/24HR 1 EA TRANSDERMAL TD SCH (09:18)
[2023-02-04] MEDS: ESCITALOPRAM OXALATE 10 MG TAB (LEXAPRO) PO SCH (09:18)
[2023-02-04] MEDS: GABAPENTIN 400MG CAP PO SCH ×2 (09:18→20:23)
[2023-02-04] MEDS: PHENYTOIN ER 100 MG CAP PO SCH ×2 (09:18→20:23)
[2023-02-04] MEDS: ATORVASTATIN 20 MG TAB PO SCH (09:19)
[2023-02-04] MEDS: BRIMONIDINE 0.1% OPHTH SOLN 5ML OU SCH ×2 (09:19→21:00)
[2023-02-04] MEDS: LIDOCAINE 5% (LIDODERM) PATCH TD SCH (09:19)
[2023-02-04] MEDS: ACETAMINOPHEN 500 MG TAB PO SCH ×3 (09:19→20:24)
[2023-02-04 14:00] VITALS: BP 118/61
[2023-02-04 20:00] VITALS: BP 111/59
[2023-02-04] MEDS: SENNA 8.6 MG TAB (SENOKOT) PO SCH (20:23)
[2023-02-04] MEDS: QUEtiapine FUMARATE 50MG TAB PO SCH (20:23)
[2023-02-04] MEDS: LATANOPROST 0.005% OPHTH SOLN 2.5 ML OU SCH (21:00)
[2023-02-05 06:00] VITALS: BP 104/55
[2023-02-05] MEDS: APIXABAN 5 MG TAB (ELIQUIS) PO SCH ×2 (08:25→20:41)
[2023-02-05] MEDS: GABAPENTIN 400MG CAP PO SCH ×2 (08:25→20:41)
[2023-02-05] MEDS: PHENYTOIN ER 100 MG CAP PO SCH ×2 (08:25→20:40)
[2023-02-05] MEDS: ESCITALOPRAM OXALATE 10 MG TAB (LEXAPRO) PO SCH (08:26)
[2023-02-05] MEDS: PANTOPRAZOLE 40MG TAB (PROTONIX) PO SCH ×2 (08:26→20:41)
[2023-02-05] MEDS: DOCUSATE SODIUM 100MG CAPSULE PO SCH ×2 (08:26→20:41)
[2023-02-05] MEDS: NICOTINE 21MG/24HR 1 EA TRANSDERMAL TD SCH (08:26)
[2023-02-05] MEDS: ATORVASTATIN 20 MG TAB PO SCH (08:26)
[2023-02-05] MEDS: BRIMONIDINE 0.1% OPHTH SOLN 5ML OU SCH ×2 (08:27→20:42)
[2023-02-05] MEDS: LIDOCAINE 5% (LIDODERM) PATCH TD SCH (08:27)
[2023-02-05] MEDS: ACETAMINOPHEN 500 MG TAB PO SCH ×3 (08:27→20:41)
[2023-02-05] MEDS ORDERED: LIDOCAINE 5% (LIDODERM) PATCH TD ONE (13:00)
[2023-02-05 14:00] VITALS: BP 109/58
[2023-02-05 20:00] VITALS: BP 115/61
[2023-02-05] MEDS: QUEtiapine FUMARATE 50MG TAB PO SCH (20:41)
[2023-02-05] MEDS: SENNA 8.6 MG TAB (SENOKOT) PO SCH (20:41)
[2023-02-05] MEDS: LATANOPROST 0.005% OPHTH SOLN 2.5 ML OU SCH (20:42)
[2023-02-06 06:00] VITALS: BP 112/64
[2023-02-06] MEDS: DOCUSATE SODIUM 100MG CAPSULE PO SCH ×2 (09:00→20:34)
[2023-02-06] MEDS: NICOTINE 21MG/24HR 1 EA TRANSDERMAL TD SCH (09:08)
[2023-02-06] MEDS: ESCITALOPRAM OXALATE 10 MG TAB (LEXAPRO) PO SCH (09:09)
[2023-02-06] MEDS: LIDOCAINE 5% (LIDODERM) PATCH TD SCH (09:09)
[2023-02-06] MEDS: GABAPENTIN 400MG CAP PO SCH ×2 (09:09→20:33)
[2023-02-06] MEDS: APIXABAN 5 MG TAB (ELIQUIS) PO SCH ×2 (09:09→20:33)
[2023-02-06] MEDS: PANTOPRAZOLE 40MG TAB (PROTONIX) PO SCH ×2 (09:09→20:33)
[2023-02-06] MEDS: ACETAMINOPHEN 500 MG TAB PO SCH ×3 (09:10→20:33)
[2023-02-06] MEDS: PHENYTOIN ER 100 MG CAP PO SCH ×2 (09:11→20:33)
[2023-02-06] MEDS: BRIMONIDINE 0.1% OPHTH SOLN 5ML OU SCH ×2 (09:11→20:34)
[2023-02-06] MEDS: ATORVASTATIN 20 MG TAB PO SCH (09:12)
[2023-02-06 14:00] VITALS: BP 104/58
[2023-02-06 20:00] VITALS: BP 100/57
[2023-02-06] MEDS: SENNA 8.6 MG TAB (SENOKOT) PO SCH (20:34)
[2023-02-06] MEDS: QUEtiapine FUMARATE 50MG TAB PO SCH (20:34)
[2023-02-06] MEDS: LATANOPROST 0.005% OPHTH SOLN 2.5 ML OU SCH (20:34)
[2023-02-07 06:00] VITALS: BP 97/54
[2023-02-07] MEDS: DOCUSATE SODIUM 100MG CAPSULE PO SCH ×2 (08:36→20:04)
[2023-02-07] MEDS: PHENYTOIN ER 100 MG CAP PO SCH ×2 (08:37→20:04)
[2023-02-07] MEDS: ESCITALOPRAM OXALATE 10 MG TAB (LEXAPRO) PO SCH (08:37)
[2023-02-07] MEDS: GABAPENTIN 400MG CAP PO SCH ×2 (08:37→20:03)
[2023-02-07] MEDS: PANTOPRAZOLE 40MG TAB (PROTONIX) PO SCH ×2 (08:37→20:05)
[2023-02-07] MEDS: ATORVASTATIN 20 MG TAB PO SCH (08:37)
[2023-02-07] MEDS: APIXABAN 5 MG TAB (ELIQUIS) PO SCH ×2 (08:37→20:04)
[2023-02-07] MEDS: LIDOCAINE 5% (LIDODERM) PATCH TD SCH (08:38)
[2023-02-07] MEDS: BRIMONIDINE 0.1% OPHTH SOLN 5ML OU SCH ×2 (08:38→20:05)
[2023-02-07] MEDS: ACETAMINOPHEN 500 MG TAB PO SCH ×3 (08:38→20:04)
[2023-02-07] MEDS: NICOTINE 21MG/24HR 1 EA TRANSDERMAL TD SCH (08:39)
[2023-02-07 14:00] VITALS: BP 91/53
[2023-02-07 20:00] VITALS: BP 128/76
[2023-02-07] MEDS: SENNA 8.6 MG TAB (SENOKOT) PO SCH (20:04)
[2023-02-07] MEDS: QUEtiapine FUMARATE 50MG TAB PO SCH (20:04)
[2023-02-07] MEDS: LATANOPROST 0.005% OPHTH SOLN 2.5 ML OU SCH (20:05)
[2023-02-08 06:00] VITALS: BP 114/64
[2023-02-08 07:14] LABS: BASO # 0.1 10^3/uL (0.0-0.2); BASO % 1.2 % (0.0-1.0); EOS # 0.2 10^3/uL (0.0-0.5); EOS % 2.9 % (0.0-3.0); HEMATOCRIT 33.1 % (42.0-52.0); HEMOGLOBIN 10.5 g/dl (13.5-17.5); LYMPH # 2.7 10^3/uL (1.5-5.0); LYMPH % 38.8 % (24.0-44.0); MEAN CORPUSCULAR HEMOGLOBIN 28.7 pg (27.0-33.0); MEAN CORPUSCULAR HGB CONC 31.7 g/dl (32.0-36.5); MEAN CORPUSCULAR VOLUME 90.4 fl (80.0-96.0); MONO # 1.1 10^3/uL (0.0-0.8); MONO % 15.5 % (2.0-8.0); NEUTROPHILS # 2.9 10^3/uL (1.5-8.5); NEUTROPHILS % 41.5 % (36.0-66.0); PLATELET COUNT, AUTOMATED 275 10^3/uL (150-450); RED BLOOD COUNT 3.66 10^6/uL (4.30-6.10)
[2023-02-08 07:40] LABS: BLOOD UREA NITROGEN 18 MG/DL (9-23); CARBON DIOXIDE LEVEL 26 MMOL/L (20-31); CHLORIDE LEVEL 108 MMOL/L (98-107); CREATININE FOR GFR 0.66 MG/DL (0.70-1.30); GLOMERULAR FILTRATION RATE > 60.0 (>49); GLUCOSE, FASTING 85 MG/DL (74-106); POTASSIUM SERUM 4.7 MMOL/L (3.5-5.1); SODIUM LEVEL 141 MMOL/L (136-145)
[2023-02-08] MEDS: NICOTINE 21MG/24HR 1 EA TRANSDERMAL TD SCH (08:37)
[2023-02-08] MEDS: DOCUSATE SODIUM 100MG CAPSULE PO SCH ×2 (08:37→21:19)
[2023-02-08] MEDS: GABAPENTIN 400MG CAP PO SCH ×2 (08:37→21:19)
[2023-02-08] MEDS: PANTOPRAZOLE 40MG TAB (PROTONIX) PO SCH ×2 (08:37→21:19)
[2023-02-08] MEDS: APIXABAN 5 MG TAB (ELIQUIS) PO SCH ×2 (08:38→21:19)
[2023-02-08] MEDS: PHENYTOIN ER 100 MG CAP PO SCH ×2 (08:38→21:18)
[2023-02-08] MEDS: ATORVASTATIN 20 MG TAB PO SCH (08:38)
[2023-02-08] MEDS: ESCITALOPRAM OXALATE 10 MG TAB (LEXAPRO) PO SCH (08:38)
[2023-02-08] MEDS: LIDOCAINE 5% (LIDODERM) PATCH TD SCH (08:39)
[2023-02-08] MEDS: ACETAMINOPHEN 500 MG TAB PO SCH ×3 (08:39→21:18)
[2023-02-08] MEDS: BRIMONIDINE 0.1% OPHTH SOLN 5ML OU SCH ×2 (08:39→21:20)
[2023-02-08 13:42] VITALS: BP 141/71
[2023-02-08 14:37] VITALS: BP 126/60
[2023-02-08 21:14] VITALS: BP 112/66
[2023-02-08] MEDS: SENNA 8.6 MG TAB (SENOKOT) PO SCH (21:20)
[2023-02-08] MEDS: QUEtiapine FUMARATE 50MG TAB PO SCH (21:20)
[2023-02-08] MEDS: LATANOPROST 0.005% OPHTH SOLN 2.5 ML OU SCH (21:21)
[2023-02-08] MEDS: diphenhydrAMINE 25MG CAP PO PRN (21:44)
[2023-02-09 06:26] VITALS: BP 110/55
[2023-02-09] MEDS: ATORVASTATIN 20 MG TAB PO SCH (08:13)
[2023-02-09] MEDS: PANTOPRAZOLE 40MG TAB (PROTONIX) PO SCH ×2 (08:13→21:32)
[2023-02-09] MEDS: PHENYTOIN ER 100 MG CAP PO SCH ×2 (08:13→21:31)
[2023-02-09] MEDS: NICOTINE 21MG/24HR 1 EA TRANSDERMAL TD SCH (08:14)
[2023-02-09] MEDS: ACETAMINOPHEN 500 MG TAB PO SCH ×3 (08:14→21:32)
[2023-02-09] MEDS: ESCITALOPRAM OXALATE 10 MG TAB (LEXAPRO) PO SCH (08:14)
[2023-02-09] MEDS: APIXABAN 5 MG TAB (ELIQUIS) PO SCH ×2 (08:14→21:32)
[2023-02-09] MEDS: GABAPENTIN 400MG CAP PO SCH ×2 (08:14→21:31)
[2023-02-09] MEDS: DOCUSATE SODIUM 100MG CAPSULE PO SCH ×2 (08:14→21:32)
[2023-02-09] MEDS: LIDOCAINE 5% (LIDODERM) PATCH TD SCH (08:15)
[2023-02-09] MEDS: BRIMONIDINE 0.1% OPHTH SOLN 5ML OU SCH ×2 (08:15→21:33)
[2023-02-09 14:00] VITALS: BP 114/59
[2023-02-09 20:17] VITALS: BP 117/68
[2023-02-09] MEDS ORDERED: MAGNESIUM OXIDE 400MG TAB (MAG-OX) PO SCH (21:00)
[2023-02-09] MEDS: QUEtiapine FUMARATE 50MG TAB PO SCH (21:32)
[2023-02-09] MEDS: SENNA 8.6 MG TAB (SENOKOT) PO SCH (21:32)
[2023-02-09] MEDS: diphenhydrAMINE 25MG CAP PO PRN (21:32)
[2023-02-09] MEDS: LATANOPROST 0.005% OPHTH SOLN 2.5 ML OU SCH (21:33)
[2023-02-10 06:02] VITALS: BP 126/65
[2023-02-10] MEDS: DOCUSATE SODIUM 100MG CAPSULE PO SCH (08:05)
[2023-02-10] MEDS: ESCITALOPRAM OXALATE 10 MG TAB (LEXAPRO) PO SCH (08:05)
[2023-02-10] MEDS: ATORVASTATIN 20 MG TAB PO SCH (08:05)
[2023-02-10] MEDS: ACETAMINOPHEN 500 MG TAB PO SCH ×2 (08:05→17:36)
[2023-02-10] MEDS: GABAPENTIN 400MG CAP PO SCH (08:06)
[2023-02-10] MEDS: APIXABAN 5 MG TAB (ELIQUIS) PO SCH (08:06)
[2023-02-10] MEDS: PANTOPRAZOLE 40MG TAB (PROTONIX) PO SCH (08:06)
[2023-02-10] MEDS: PHENYTOIN ER 100 MG CAP PO SCH (08:06)
[2023-02-10] MEDS: LIDOCAINE 5% (LIDODERM) PATCH TD SCH (08:07)
[2023-02-10] MEDS: NICOTINE 21MG/24HR 1 EA TRANSDERMAL TD SCH (08:08)
[2023-02-10] MEDS: BRIMONIDINE 0.1% OPHTH SOLN 5ML OU SCH (08:08)
[2023-02-10] MEDS ORDERED: LEXA1TAB2 PO (10:15)
[2023-02-10] MEDS ORDERED: ATOR80TA59 PO (10:15)
[2023-02-10] MEDS ORDERED: GABA-283 PO ×2 (10:15)
[2023-02-10] MEDS ORDERED: DILA100C PO (10:15)
[2023-02-10] MEDS ORDERED: QUET1TAB17 PO (10:15)
[2023-02-10] MEDS ORDERED: PANT40TA29 PO (10:15)
[2023-02-10] MEDS ORDERED: HYDR50TA70 PO (10:15)
[2023-02-10] MEDS ORDERED: ELIQ5TAB PO (10:15)
[2023-02-10 14:00] VITALS: BP 112/58
== END 2023-02-10 16:00 | disposition home or self-care (01) | DRG 561 ==
LOC: M PM&R 14:10 → UNDOADMIN 14:27 → M ED INP 14:27 → M PM&R 14:58 → M ED INP 14:58 → M PM&R 15:05
PROVIDERS: ADMIT Physical Medicine & Rehabilitation; ATTEND Physical Medicine & Rehabilitation
DX: S72.111D Displaced fracture of greater trochanter of right femur, subsequent encounter for closed fracture with routine healing (principal); G40.909 Epilepsy, unspecified, not intractable, without status epilepticus; E78.5 Hyperlipidemia, unspecified; K59.00 Constipation, unspecified; G62.9 Polyneuropathy, unspecified; G47.00 Insomnia, unspecified; G47.33 Obstructive sleep apnea (adult) (pediatric); F41.9 Anxiety disorder, unspecified; F32.A Depression, unspecified; Z74.09 Other reduced mobility; Z74.1 Need for assistance with personal care; D64.9 Anemia, unspecified; F17.200 Nicotine dependence, unspecified, uncomplicated; Z79.01 Long term (current) use of anticoagulants; Z79.899 Other long term (current) drug therapy; Z86.718 Personal history of other venous thrombosis and embolism; Z95.828 Presence of other vascular implants and grafts; Z86.79 Personal history of other diseases of the circulatory system; Z91.51 Personal history of suicidal behavior

== ENCOUNTER → 2023-02-26 | Outpatient (CLI) | payer MEDICARE, MEDICAID ==
[~2023-02-26] MED LIST changes: +PANT40TA29 PO
== END ==
LOC: M SOG 15:05
PROVIDERS: ATTEND Orthopaedic Surgery Hand Surgery
DX: M25.551 Pain in right hip (principal)

== ENCOUNTER → 2023-03-25 | Outpatient (CLI) | payer MEDICARE, MEDICAID | LOC: M SOG 10:29 | PROVIDERS: ATTEND Physician Assistant | DX: M25.551 Pain in right hip (principal) ==

== ENCOUNTER 2023-04-27 14:42 | Inpatient (IN) | payer MEDICARE, MEDICAID ==
[~2023-04-27] VITALS: Ht 167.6 cm; Wt 65.4 kg
[~2023-04-27 14:42] MED LIST changes: -GABA-283 PO; +GABA-284 PO
[2023-04-27] MEDS ORDERED: ACETAMINOPHEN TAB 650MG DOSE (2X325MG) PO ONE (21:25)
[2023-04-28] MEDS ORDERED: NS 1,000 ML IV ONE (02:25)
[2023-04-28 03:19] LABS: BASO # 0.1 10^3/uL (0.0-0.2); BASO % 0.6 % (0.0-1.0); HEMATOCRIT 31.1 % (42.0-52.0); HEMOGLOBIN 9.7 g/dl (13.5-17.5); LYMPH # 1.5 10^3/uL (1.5-5.0); LYMPH % 14.2 % (24.0-44.0); MEAN CORPUSCULAR HEMOGLOBIN 26.1 pg (27.0-33.0); MEAN CORPUSCULAR HGB CONC 31.2 g/dl (32.0-36.5); MEAN CORPUSCULAR VOLUME 83.6 fl (80.0-96.0); MONO % 15.6 % (2.0-8.0); NEUTROPHILS # 7.5 10^3/uL (1.5-8.5); NEUTROPHILS % 69.2 % (36.0-66.0); PLATELET COUNT, AUTOMATED 265 10^3/uL (150-450); RED BLOOD COUNT 3.72 10^6/uL (4.30-6.10); WHITE BLOOD COUNT 10.9 10^3/uL (4.0-10.0)
[2023-04-28 03:31] LABS: MONO # 1.7 10^3/uL (0.0-0.8)
[2023-04-28 03:43] LABS: ALBUMIN 3.5 G/DL (3.2-5.2); ALKALINE PHOSPHATASE 134 U/L (46-116); ALT/SGPT < 9 U/L (7.0-40); AST/SGOT 24 U/L (<34); BILIRUBIN,TOTAL 0.5 MG/DL (0.3-1.2); BLOOD UREA NITROGEN 26 MG/DL (9-23); CALCIUM LEVEL 7.9 MG/DL (8.3-10.6); CARBON DIOXIDE LEVEL 26 MMOL/L (20-31); CHLORIDE LEVEL 104 MMOL/L (98-107); CREATININE FOR GFR 0.69 MG/DL (0.70-1.30); GLOMERULAR FILTRATION RATE > 60.0 (>49); GLUCOSE, FASTING 137 MG/DL (74-106); POTASSIUM SERUM 3.8 MMOL/L (3.5-5.1); SODIUM LEVEL 139 MMOL/L (136-145); TOTAL PROTEIN 6.7 G/DL (5.7-8.2)
[2023-04-28] MEDS ORDERED: ACETAMINOPHEN 1000MG 100ML IV BAG IV ONE (10:30)
[2023-04-28 10:40] LABS: INR 1.1; PROTHROMBIN TIME 14.4 SECONDS (12.5-14.5)
[2023-04-28 10:41] LABS: PARTIAL THROMBOPLASTIN TIME 32.3 SECONDS (24.8-34.2)
[2023-04-28 10:46] LABS: CK-MB VALUE MASS 1.7 NG/ML (<3.6)
[2023-04-28 10:48] LABS: MB/CK RELATIVE INDEX 0.36 (< OR =4)
[2023-04-28] MEDS: NS 1,000 ML IV SCH (12:10)
[2023-04-28] MEDS ORDERED: MED REC IN PROGRESS XX SCH (14:05)
[2023-04-28 14:40] VITALS: BP 123/61; TEMP 97.9; O2SAT 100
[2023-04-28] MEDS ORDERED: HOME MED LIST COMPLETE! XX SCH (15:05)
[2023-04-28] MEDS ORDERED: GABA-284 PO ×2 (15:05)
[2023-04-28] MEDS ORDERED: LEXA1TAB2 PO (15:05)
[2023-04-28] MEDS ORDERED: ELIQ5TAB PO (15:05)
[2023-04-28] MEDS ORDERED: ATOR80TA59 PO (15:05)
[2023-04-28] MEDS ORDERED: DILA100C PO (15:05)
[2023-04-28] MEDS ORDERED: PANT-23 PO (15:05)
[2023-04-28] MEDS ORDERED: HYDR50TA70 PO (15:05)
[2023-04-28] MEDS ORDERED: QUET1TAB17 PO (15:05)
[2023-04-28 20:10] VITALS: BP 127/62; TEMP 97.9; O2SAT 94
[2023-04-28] MEDS: oxyCODONE 5MG TAB PO PRN (20:46)
[2023-04-28] MEDS: NICOTINE 14 MG/24 HR TRANSDERMAL TD SCH (20:46)
[2023-04-29] MEDS: oxyCODONE 5MG TAB PO PRN ×2 (00:46→07:44)
[2023-04-29] MEDS: NS 1,000 ML IV SCH (03:35)
[2023-04-29 05:36] VITALS: BP 113/59; TEMP 97.9; O2SAT 97
[2023-04-29 06:22] LABS: ALBUMIN 2.6 G/DL (3.2-5.2); ALKALINE PHOSPHATASE 101 U/L (46-116); ALT/SGPT < 9 U/L (7.0-40); AST/SGOT 22 U/L (<34); BILIRUBIN,TOTAL 0.2 MG/DL (0.3-1.2); BLOOD UREA NITROGEN 13 MG/DL (9-23); CALCIUM LEVEL 7.6 MG/DL (8.3-10.6); CARBON DIOXIDE LEVEL 24 MMOL/L (20-31); CHLORIDE LEVEL 110 MMOL/L (98-107); CREATININE FOR GFR 0.65 MG/DL (0.70-1.30); GLOMERULAR FILTRATION RATE > 60.0 (>49); GLUCOSE, FASTING 102 MG/DL (74-106); MAGNESIUM LEVEL 1.6 MG/DL (1.8-2.4); POTASSIUM SERUM 3.5 MMOL/L (3.5-5.1); SODIUM LEVEL 141 MMOL/L (136-145); TOTAL PROTEIN 5.4 G/DL (5.7-8.2)
[2023-04-29] MEDS: PANTOPRAZOLE 40MG TAB (PROTONIX) PO SCH (10:34)
[2023-04-29] MEDS: GABAPENTIN 400MG CAP PO SCH ×2 (10:34→22:15)
[2023-04-29] MEDS: ATORVASTATIN 20 MG TAB PO SCH (10:34)
[2023-04-29] MEDS: ESCITALOPRAM OXALATE 10 MG TAB (LEXAPRO) PO SCH (10:35)
[2023-04-29] MEDS: ACETAMINOPHEN TAB 650MG DOSE (2X325MG) PO PRN (10:35)
[2023-04-29] MEDS: BRIMONIDINE 0.1% OPHTH SOLN 5ML OU SCH ×2 (12:45→22:14)
[2023-04-29] MEDS ORDERED: LIDOCAINE 2% 100MG/5ML SDV (FOR ANES.) As Ordered ONE (13:19)
[2023-04-29] MEDS ORDERED: propofoL 200 MG/20 ML VIAL As Ordered ONE (13:19)
[2023-04-29] MEDS ORDERED: ONDANSETRON 4MG 2ML VIAL As Ordered ONE (13:19)
[2023-04-29] MEDS ORDERED: SUGAMMADEX SODIUM 500 MG/5 ML VIAL (BRIDION) As Ordered ONE (13:19)
[2023-04-29] MEDS ORDERED: ROCURONIUM BROMIDE 50MG/5ML VIAL As Ordered ONE (13:19)
[2023-04-29] MEDS ORDERED: LIDOCAINE W/EPINEPHRINE 1% 20ML VIAL As Ordered ONE (13:31)
[2023-04-29] MEDS ORDERED: TRANEXAMIC ACID 100 MG/ML 10ML VIAL As Ordered ONE (13:31)
[2023-04-29] MEDS: PHENYTOIN ER 100 MG CAP PO SCH ×2 (14:01→22:14)
[2023-04-29] MEDS ORDERED: fentaNYL 250 MCG/5 ML INJECTION As Ordered ONE (14:30)
[2023-04-29] MEDS ORDERED: ceFAZolin 2 GM/D5W 50 ML IV BAG As Ordered ONE (14:44)
[2023-04-29] MEDS ORDERED: ACETAMINOPHEN 1000MG 100ML IV BAG As Ordered ONE (15:39)
[2023-04-29] MEDS ORDERED: oxyCODONE 5MG TAB PO PRN (16:40)
[2023-04-29] MEDS ORDERED: fentaNYL 100 MCG/2 ML INJECTION IV PRN (16:40)
[2023-04-29] MEDS ORDERED: ONDANSETRON 4MG 2ML VIAL IV PRN (16:40)
[2023-04-29] MEDS: MORPHINE 2 MG/ML 1ML VIAL IV PRN ×3 (16:49→17:04)
[2023-04-29 20:05] VITALS: BP 114/67; TEMP 97.5; O2SAT 95
[2023-04-29 20:32] VITALS: BP 116/67; TEMP 97.9; O2SAT 96
[2023-04-29 21:28] VITALS: BP 114/66; TEMP 97.5; O2SAT 95
[2023-04-29] MEDS: LATANOPROST 0.005% OPHTH SOLN 2.5 ML OU SCH (22:13)
[2023-04-29] MEDS: QUEtiapine FUMARATE 50MG TAB PO SCH (22:14)
[2023-04-29] MEDS: hydrOXYzine 50 MG TAB PO SCH (22:14)
[2023-04-29] MEDS: NICOTINE 14 MG/24 HR TRANSDERMAL TD SCH (22:14)
[2023-04-29 22:33] VITALS: BP 106/61; TEMP 97.5; O2SAT 94
[2023-04-29] MEDS: LR 1,000 ML IV SCH (22:43)
[2023-04-29] MEDS: ceFAZolin SOD 2 GM in IV 1 EA IV SCH (23:53)
[2023-04-30 01:48] VITALS: BP 149/62; TEMP 97.3; O2SAT 95
[2023-04-30] MEDS: LR 1,000 ML IV SCH (02:30)
[2023-04-30 05:58] VITALS: BP 140/58; TEMP 98.6; O2SAT 90
[2023-04-30] MEDS: oxyCODONE 5MG TAB PO PRN (06:04)
[2023-04-30 06:16] LABS: PHENYTOIN (DILANTIN) 18.5 UG/ML (10.0-20.0)
[2023-04-30 08:13] LABS: BLOOD UREA NITROGEN 7 MG/DL (9-23); CALCIUM LEVEL 7.5 MG/DL (8.3-10.6); CARBON DIOXIDE LEVEL 24 MMOL/L (20-31); CHLORIDE LEVEL 107 MMOL/L (98-107); CREATININE FOR GFR 0.54 MG/DL (0.70-1.30); GLOMERULAR FILTRATION RATE > 60.0 (>49); GLUCOSE, FASTING 95 MG/DL (74-106); POTASSIUM SERUM 3.5 MMOL/L (3.5-5.1); SODIUM LEVEL 140 MMOL/L (136-145)
[2023-04-30 08:17] LABS: BASO # 0.1 10^3/uL (0.0-0.2); BASO % 0.6 % (0.0-1.0); EOS # 0.1 10^3/uL (0.0-0.5); EOS % 1.6 % (0.0-3.0); HEMATOCRIT 27.7 % (42.0-52.0); HEMOGLOBIN 8.7 g/dl (13.5-17.5); LYMPH # 1.8 10^3/uL (1.5-5.0); LYMPH % 21.4 % (24.0-44.0); MEAN CORPUSCULAR HEMOGLOBIN 26.1 pg (27.0-33.0); MEAN CORPUSCULAR HGB CONC 31.4 g/dl (32.0-36.5); MEAN CORPUSCULAR VOLUME 83.2 fl (80.0-96.0); MONO # 1.2 10^3/uL (0.0-0.8); MONO % 14.1 % (2.0-8.0); NEUTROPHILS # 5.3 10^3/uL (1.5-8.5); NEUTROPHILS % 61.9 % (36.0-66.0); PLATELET COUNT, AUTOMATED 248 10^3/uL (150-450); RED BLOOD COUNT 3.33 10^6/uL (4.30-6.10); WHITE BLOOD COUNT 8.5 10^3/uL (4.0-10.0)
[2023-04-30] MEDS: APIXABAN 5 MG TAB (ELIQUIS) PO SCH ×2 (08:47→20:59)
[2023-04-30] MEDS: ESCITALOPRAM OXALATE 10 MG TAB (LEXAPRO) PO SCH (08:47)
[2023-04-30] MEDS: ATORVASTATIN 20 MG TAB PO SCH (08:48)
[2023-04-30] MEDS: PANTOPRAZOLE 40MG TAB (PROTONIX) PO SCH (08:48)
[2023-04-30] MEDS: ceFAZolin SOD 2 GM in IV 1 EA IV SCH (08:48)
[2023-04-30] MEDS: GABAPENTIN 400MG CAP PO SCH ×2 (08:48→20:58)
[2023-04-30] MEDS: PHENYTOIN ER 100 MG CAP PO SCH ×2 (10:29→20:58)
[2023-04-30] MEDS: BRIMONIDINE 0.1% OPHTH SOLN 5ML OU SCH ×2 (10:29→20:59)
[2023-04-30] MEDS ORDERED: SODIUM CHLORIDE 0.9% 1000ML IV ONE (12:35)
[2023-04-30 14:00] VITALS: BP 110/55; TEMP 97.9; O2SAT 95
[2023-04-30] MEDS: QUEtiapine FUMARATE 50MG TAB PO SCH (20:58)
[2023-04-30] MEDS: NICOTINE 14 MG/24 HR TRANSDERMAL TD SCH (20:58)
[2023-04-30] MEDS: LATANOPROST 0.005% OPHTH SOLN 2.5 ML OU SCH (20:59)
[2023-04-30] MEDS: hydrOXYzine 50 MG TAB PO SCH (20:59)
[2023-04-30 21:26] VITALS: BP 112/56; TEMP 98.1; O2SAT 95
[2023-05-01 06:00] VITALS: BP 114/57; TEMP 98.1; O2SAT 97
[2023-05-01] MEDS ORDERED: NS 1,000 ML IV SCH (07:20)
[2023-05-01] MEDS: PANTOPRAZOLE 40MG TAB (PROTONIX) PO SCH (09:30)
[2023-05-01] MEDS: APIXABAN 5 MG TAB (ELIQUIS) PO SCH ×2 (09:30→20:12)
[2023-05-01] MEDS: ATORVASTATIN 20 MG TAB PO SCH (09:31)
[2023-05-01] MEDS: ESCITALOPRAM OXALATE 10 MG TAB (LEXAPRO) PO SCH (09:31)
[2023-05-01] MEDS: BRIMONIDINE 0.1% OPHTH SOLN 5ML OU SCH ×2 (09:32→20:16)
[2023-05-01] MEDS: PHENYTOIN ER 100 MG CAP PO SCH ×2 (09:32→20:12)
[2023-05-01] MEDS: GABAPENTIN 400MG CAP PO SCH ×2 (09:41→20:12)
[2023-05-01 14:00] VITALS: BP 112/59; TEMP 97.7; O2SAT 96
[2023-05-01] MEDS: QUEtiapine FUMARATE 50MG TAB PO SCH (20:12)
[2023-05-01] MEDS: hydrOXYzine 50 MG TAB PO SCH (20:12)
[2023-05-01] MEDS: NICOTINE 14 MG/24 HR TRANSDERMAL TD SCH (20:15)
[2023-05-01] MEDS: LATANOPROST 0.005% OPHTH SOLN 2.5 ML OU SCH (20:16)
[2023-05-01] MEDS: oxyCODONE 5MG TAB PO PRN (20:23)
[2023-05-01 21:27] VITALS: BP 112/58; TEMP 97.9; O2SAT 97
[2023-05-02] MEDS: oxyCODONE 5MG TAB PO PRN ×2 (04:43→20:56)
[2023-05-02 06:00] VITALS: BP 114/60; TEMP 97.9; O2SAT 97
[2023-05-02] MEDS: ATORVASTATIN 20 MG TAB PO SCH (09:23)
[2023-05-02] MEDS: PHENYTOIN ER 100 MG CAP PO SCH ×2 (09:23→20:57)
[2023-05-02] MEDS: PANTOPRAZOLE 40MG TAB (PROTONIX) PO SCH (09:24)
[2023-05-02] MEDS: BRIMONIDINE 0.1% OPHTH SOLN 5ML OU SCH ×2 (09:24→20:58)
[2023-05-02] MEDS: ESCITALOPRAM OXALATE 10 MG TAB (LEXAPRO) PO SCH (09:24)
[2023-05-02] MEDS: GABAPENTIN 400MG CAP PO SCH ×2 (09:24→20:57)
[2023-05-02] MEDS: APIXABAN 5 MG TAB (ELIQUIS) PO SCH ×2 (09:24→20:57)
[2023-05-02 14:00] VITALS: BP 100/49; TEMP 97.5; O2SAT 99
[2023-05-02] MEDS: QUEtiapine FUMARATE 50MG TAB PO SCH (20:57)
[2023-05-02] MEDS: LATANOPROST 0.005% OPHTH SOLN 2.5 ML OU SCH (20:58)
[2023-05-02] MEDS: hydrOXYzine 50 MG TAB PO SCH (20:58)
[2023-05-02] MEDS: NICOTINE 14 MG/24 HR TRANSDERMAL TD SCH (20:58)
[2023-05-03 06:05] VITALS: BP 107/58; TEMP 97.7; O2SAT 97
[2023-05-03] MEDS: PANTOPRAZOLE 40MG TAB (PROTONIX) PO SCH (09:54)
[2023-05-03] MEDS: oxyCODONE 5MG TAB PO PRN ×2 (09:54→20:21)
[2023-05-03] MEDS: ESCITALOPRAM OXALATE 10 MG TAB (LEXAPRO) PO SCH (09:54)
[2023-05-03] MEDS: ATORVASTATIN 20 MG TAB PO SCH (09:54)
[2023-05-03] MEDS: PHENYTOIN ER 100 MG CAP PO SCH ×2 (09:55→20:22)
[2023-05-03] MEDS: APIXABAN 5 MG TAB (ELIQUIS) PO SCH ×2 (09:55→20:22)
[2023-05-03] MEDS: BRIMONIDINE 0.1% OPHTH SOLN 5ML OU SCH ×2 (09:55→20:23)
[2023-05-03] MEDS: GABAPENTIN 400MG CAP PO SCH ×2 (09:55→20:23)
[2023-05-03 14:00] VITALS: BP 123/66; TEMP 97.7; O2SAT 98
[2023-05-03] MEDS: ACETAMINOPHEN TAB 650MG DOSE (2X325MG) PO PRN (20:19)
[2023-05-03] MEDS: QUEtiapine FUMARATE 50MG TAB PO SCH (20:21)
[2023-05-03] MEDS: hydrOXYzine 50 MG TAB PO SCH (20:21)
[2023-05-03] MEDS: LATANOPROST 0.005% OPHTH SOLN 2.5 ML OU SCH (20:23)
[2023-05-03] MEDS: NICOTINE 14 MG/24 HR TRANSDERMAL TD SCH (20:23)
[2023-05-03 21:03] VITALS: BP 122/65; TEMP 97.7; O2SAT 99
[2023-05-04 05:28] VITALS: BP 118/71; TEMP 97; O2SAT 98
[2023-05-04] MEDS: PANTOPRAZOLE 40MG TAB (PROTONIX) PO SCH (08:40)
[2023-05-04] MEDS: GABAPENTIN 400MG CAP PO SCH (08:40)
[2023-05-04] MEDS: ESCITALOPRAM OXALATE 10 MG TAB (LEXAPRO) PO SCH (08:40)
[2023-05-04] MEDS: ATORVASTATIN 20 MG TAB PO SCH (08:41)
[2023-05-04] MEDS: BRIMONIDINE 0.1% OPHTH SOLN 5ML OU SCH (08:41)
[2023-05-04] MEDS: PHENYTOIN ER 100 MG CAP PO SCH (08:41)
[2023-05-04] MEDS: APIXABAN 5 MG TAB (ELIQUIS) PO SCH (08:41)
[2023-05-04] MEDS: oxyCODONE 5MG TAB PO PRN (08:50)
[2023-05-04] MEDS ORDERED: LIDO1PAD TOP (11:33)
[2023-05-04] MEDS ORDERED: OXYC-517 PO (11:33)
== END 2023-05-04 13:35 | DRG 481 ==
LOC: EDBD 14:42 → M ED 14:42 → M ED INP 04-28 11:56 → M MS5PR 04-28 11:56 → ENRESERV 04-28 13:59 → M MS5PR 04-28 14:35
PROVIDERS: ADMIT Family Medicine; ATTEND Student in an Organized Health Care Education/Training Program
PROC: 0QS706Z Reposition Left Upper Femur with Intramedullary Internal Fixation Device, Open Approach (ICD-10-PCS; principal; 2023-04-29 14:00)
DX: S72.142A Displaced intertrochanteric fracture of left femur, initial encounter for closed fracture (principal); M62.82 Rhabdomyolysis; E78.5 Hyperlipidemia, unspecified; G47.33 Obstructive sleep apnea (adult) (pediatric); F41.9 Anxiety disorder, unspecified; F32.A Depression, unspecified; G31.84 Mild cognitive impairment of uncertain or unknown etiology; W01.0XXA Fall on same level from slipping, tripping and stumbling without subsequent striking against object, initial encounter; Y92.9 Unspecified place or not applicable; Y93.9 Activity, unspecified; Y99.8 Other external cause status; F17.210 Nicotine dependence, cigarettes, uncomplicated; R56.9 Unspecified convulsions; Z86.718 Personal history of other venous thrombosis and embolism; Z79.01 Long term (current) use of anticoagulants; Z79.899 Other long term (current) drug therapy; Z86.011 Personal history of benign neoplasm of the brain

== ENCOUNTER → 2023-05-05 | Outpatient (REF) ==
[~2023-05-05] MED LIST changes: +LIDO1PAD TOP; +OXYC-517 PO; +PANT-23 PO
[2023-05-05 10:45] LABS: HEMATOCRIT 26.9 % (42.0-52.0); HEMOGLOBIN 8.3 g/dl (13.5-17.5); MEAN CORPUSCULAR HEMOGLOBIN 26.1 pg (27.0-33.0); MEAN CORPUSCULAR HGB CONC 30.9 g/dl (32.0-36.5); MEAN CORPUSCULAR VOLUME 84.6 fl (80.0-96.0); PLATELET COUNT, AUTOMATED 352 10^3/uL (150-450); RED BLOOD COUNT 3.18 10^6/uL (4.30-6.10); WHITE BLOOD COUNT 7.5 10^3/uL (4.0-10.0)
[2023-05-05 11:12] LABS: BLOOD UREA NITROGEN 18 MG/DL (9-23); CALCIUM LEVEL 7.6 MG/DL (8.3-10.6); CARBON DIOXIDE LEVEL 24 MMOL/L (20-31); CHLORIDE LEVEL 104 MMOL/L (98-107); CREATININE FOR GFR 0.55 MG/DL (0.70-1.30); GLOMERULAR FILTRATION RATE > 60.0 (>49); GLUCOSE, FASTING 137 MG/DL (74-106); SODIUM LEVEL 137 MMOL/L (136-145)
[2023-05-05 11:23] LABS: PHENYTOIN (DILANTIN) 15.3 UG/ML (10.0-20.0)
== END ==
PROVIDERS: ATTEND Physician Assistant
DX: G40.909 Epilepsy, unspecified, not intractable, without status epilepticus (principal)

== ENCOUNTER → 2023-05-10 | Outpatient (REF) | PROVIDERS: ATTEND Physician Assistant | DX: G40.909 Epilepsy, unspecified, not intractable, without status epilepticus (principal) ==

== ENCOUNTER → 2023-05-12 | Outpatient (REF) ==
[2023-05-12 10:24] LABS: HEMATOCRIT 27.7 % (42.0-52.0); HEMOGLOBIN 8.2 g/dl (13.5-17.5); MEAN CORPUSCULAR HEMOGLOBIN 25.9 pg (27.0-33.0); MEAN CORPUSCULAR HGB CONC 29.6 g/dl (32.0-36.5); MEAN CORPUSCULAR VOLUME 87.7 fl (80.0-96.0); PLATELET COUNT, AUTOMATED 418 10^3/uL (150-450); RED BLOOD COUNT 3.16 10^6/uL (4.30-6.10); WHITE BLOOD COUNT 6.9 10^3/uL (4.0-10.0)
[2023-05-12 10:40] LABS: PHENYTOIN (DILANTIN) 8.1 UG/ML (10.0-20.0)
[2023-05-12 10:42] LABS: BLOOD UREA NITROGEN 14 MG/DL (9-23); CALCIUM LEVEL 7.7 MG/DL (8.3-10.6); CARBON DIOXIDE LEVEL 26 MMOL/L (20-31); CHLORIDE LEVEL 105 MMOL/L (98-107); GLOMERULAR FILTRATION RATE > 60.0 (>49); GLUCOSE, FASTING 128 MG/DL (74-106); POTASSIUM SERUM 4.1 MMOL/L (3.5-5.1); SODIUM LEVEL 140 MMOL/L (136-145)
== END ==
PROVIDERS: ATTEND Physician Assistant
DX: I10 Essential (primary) hypertension (principal)

== ENCOUNTER → 2023-05-17 | Outpatient (REF) | PROVIDERS: ATTEND Physician Assistant | DX: G40.909 Epilepsy, unspecified, not intractable, without status epilepticus (principal) ==

== ENCOUNTER → 2023-05-19 | Outpatient (CLI) | payer MEDICARE, MEDICAID | LOC: M SOG 09:42 | PROVIDERS: ATTEND Orthopaedic Surgery | DX: Z47.89 Encounter for other orthopedic aftercare (principal) ==

== ENCOUNTER → 2023-05-19 | Outpatient (REF) ==
[2023-05-19 09:19] LABS: HEMATOCRIT 28.6 % (42.0-52.0); HEMOGLOBIN 8.6 g/dl (13.5-17.5); MEAN CORPUSCULAR HEMOGLOBIN 26.4 pg (27.0-33.0); MEAN CORPUSCULAR HGB CONC 30.1 g/dl (32.0-36.5); MEAN CORPUSCULAR VOLUME 87.7 fl (80.0-96.0); PLATELET COUNT, AUTOMATED 370 10^3/uL (150-450); RED BLOOD COUNT 3.26 10^6/uL (4.30-6.10); WHITE BLOOD COUNT 5.6 10^3/uL (4.0-10.0)
[2023-05-19 09:38] LABS: BLOOD UREA NITROGEN 18 MG/DL (9-23); CALCIUM LEVEL 8.1 MG/DL (8.3-10.6); CARBON DIOXIDE LEVEL 27 MMOL/L (20-31); CHLORIDE LEVEL 104 MMOL/L (98-107); CREATININE FOR GFR 0.69 MG/DL (0.70-1.30); GLOMERULAR FILTRATION RATE > 60.0 (>49); GLUCOSE, FASTING 121 MG/DL (74-106); POTASSIUM SERUM 4.4 MMOL/L (3.5-5.1); SODIUM LEVEL 139 MMOL/L (136-145)
[2023-05-19 09:42] LABS: PHENYTOIN (DILANTIN) 15.6 UG/ML (10.0-20.0)
== END ==
PROVIDERS: ATTEND Physician Assistant
DX: I48.91 Unspecified atrial fibrillation (principal)

== ENCOUNTER → 2023-05-24 | Outpatient (REF) | PROVIDERS: ATTEND Physician Assistant | DX: G40.909 Epilepsy, unspecified, not intractable, without status epilepticus (principal) ==

== ENCOUNTER → 2023-05-26 | Outpatient (REF) | PROVIDERS: ATTEND Physician Assistant | DX: R56.9 Unspecified convulsions (principal) ==

== ENCOUNTER → 2023-05-31 | Outpatient (REF) | PROVIDERS: ATTEND Physician Assistant | DX: G40.909 Epilepsy, unspecified, not intractable, without status epilepticus (principal) ==

== ENCOUNTER → 2023-06-01 | Outpatient (REF) | PROVIDERS: ATTEND Physician Assistant | DX: G40.909 Epilepsy, unspecified, not intractable, without status epilepticus (principal); Z53.8 Procedure and treatment not carried out for other reasons ==

== ENCOUNTER → 2023-06-02 | Outpatient (REF) | PROVIDERS: ATTEND Physician Assistant | DX: G40.909 Epilepsy, unspecified, not intractable, without status epilepticus (principal) ==

== ENCOUNTER → 2023-06-09 | Outpatient (REF) | PROVIDERS: ATTEND Physician Assistant | DX: G40.909 Epilepsy, unspecified, not intractable, without status epilepticus (principal) ==

== ENCOUNTER → 2023-06-09 | Outpatient (REF) | payer MEDICARE, MEDICAID | PROVIDERS: ATTEND Internal Medicine | DX: Z79.899 Other long term (current) drug therapy (principal); Z53.8 Procedure and treatment not carried out for other reasons ==

== ENCOUNTER → 2023-06-14 | Outpatient (REF) ==
[2023-06-14 10:37] LABS: BASO # 0.1 10^3/uL (0.0-0.2); EOS # 0.2 10^3/uL (0.0-0.5); EOS % 3.3 % (0.0-3.0); HEMATOCRIT 26.8 % (42.0-52.0); LYMPH # 2.4 10^3/uL (1.5-5.0); LYMPH % 34.2 % (24.0-44.0); MEAN CORPUSCULAR HEMOGLOBIN 25.2 pg (27.0-33.0); MEAN CORPUSCULAR HGB CONC 29.9 g/dl (32.0-36.5); MEAN CORPUSCULAR VOLUME 84.3 fl (80.0-96.0); MONO % 13.9 % (2.0-8.0); NEUTROPHILS # 3.3 10^3/uL (1.5-8.5); NEUTROPHILS % 47.3 % (36.0-66.0); PLATELET COUNT, AUTOMATED 354 10^3/uL (150-450); RED BLOOD COUNT 3.18 10^6/uL (4.30-6.10)
[2023-06-14 11:19] LABS: IRON (FE) 19 UG/DL (65-175)
[2023-06-14 11:20] LABS: ALBUMIN 2.9 G/DL (3.2-5.2); ALKALINE PHOSPHATASE 168 U/L (46-116); ALT/SGPT 19 U/L (7.0-40); AST/SGOT 14 U/L (<34); BILIRUBIN,TOTAL 0.2 MG/DL (0.3-1.2); BLOOD UREA NITROGEN 16 MG/DL (9-23); CARBON DIOXIDE LEVEL 26 MMOL/L (20-31); CHLORIDE LEVEL 106 MMOL/L (98-107); CREATININE FOR GFR 0.81 MG/DL (0.70-1.30); FERRITIN 14.4 NG/ML (10.5-307.3); GLOMERULAR FILTRATION RATE > 60.0 (>49); GLUCOSE, FASTING 109 MG/DL (74-106); POTASSIUM SERUM 4.2 MMOL/L (3.5-5.1); SODIUM LEVEL 139 MMOL/L (136-145); TOTAL PROTEIN 6.2 G/DL (5.7-8.2); VITAMIN B12 LEVEL 670 PG/ML (211-911)
[2023-06-14 13:02] LABS: PHENYTOIN (DILANTIN) 14.4 UG/ML (10.0-20.0)
== END ==
PROVIDERS: ATTEND Physician Assistant
DX: G40.909 Epilepsy, unspecified, not intractable, without status epilepticus (principal)

== ENCOUNTER → 2023-06-16 | Outpatient (REF) | PROVIDERS: ATTEND Physician Assistant | DX: G40.909 Epilepsy, unspecified, not intractable, without status epilepticus (principal); Z53.8 Procedure and treatment not carried out for other reasons ==

== ENCOUNTER → 2023-06-21 | Outpatient (REF) | PROVIDERS: ATTEND Physician Assistant | DX: G40.909 Epilepsy, unspecified, not intractable, without status epilepticus (principal) ==

== ENCOUNTER → 2023-06-23 | Outpatient (REF) | PROVIDERS: ATTEND Physician Assistant | DX: G40.909 Epilepsy, unspecified, not intractable, without status epilepticus (principal) ==

== ENCOUNTER → 2023-07-28 | Outpatient (CLI) | payer MEDICARE, MEDICAID | LOC: M WHC 11:06 | PROVIDERS: ATTEND Student in an Organized Health Care Education/Training Program | DX: S72.002A Fracture of unspecified part of neck of left femur, initial encounter for closed fracture (principal); W18.30XA Fall on same level, unspecified, initial encounter; Y92.009 Unspecified place in unspecified non-institutional (private) residence as the place of occurrence of the external cause ==

== ENCOUNTER → 2023-08-16 | Outpatient (CLI) | payer MEDICARE, MEDICAID | LOC: M SOG 07:53 | PROVIDERS: ATTEND Orthopaedic Surgery | DX: S72.142D Displaced intertrochanteric fracture of left femur, subsequent encounter for closed fracture with routine healing (principal); W18.30XD Fall on same level, unspecified, subsequent encounter ==

== ENCOUNTER → 2023-09-20 | Outpatient (CLI) | payer MEDICARE, MEDICAID ==
[~2023-09-20] MED LIST changes: +CYAN1000VL IM; +NOXI1TAB PO
[2023-09-20 16:26] LABS: CHOLESTEROL RISK RATIO 2.17 (<5); HDL CHOLESTEROL 86.9 MG/DL (>40); LDL CHOLESTEROL 91.3 MG/DL (<100); MAGNESIUM LEVEL 1.8 MG/DL (1.8-2.4); NON-HDL-C 102.1 MG/DL
[2023-09-20 16:28] LABS: THYROID STIMULATING HORMONE 1.174 uIU/ML (0.55-4.78)
[2023-09-20 16:30] LABS: PROLACTIN 10.82 NG/ML (2.1-17.7)
[2023-09-20 16:46] LABS: HEMOGLOBIN A1c 4.8 % (4.0-6.0)
== END ==
LOC: M PLALAB 13:57
PROVIDERS: ATTEND Student in an Organized Health Care Education/Training Program
DX: Z00.00 Encounter for general adult medical examination without abnormal findings (principal); Z51.81 Encounter for therapeutic drug level monitoring; E07.9 Disorder of thyroid, unspecified; E78.00 Pure hypercholesterolemia, unspecified

== ENCOUNTER → 2023-10-25 | Outpatient (CLI) | payer MEDICARE, MEDICAID | LOC: M RAD 14:10 | PROVIDERS: ATTEND Student in an Organized Health Care Education/Training Program | DX: Z87.891 Personal history of nicotine dependence (principal) ==

== ENCOUNTER → 2023-11-17 | Outpatient (CLI) | payer MEDICARE, MEDICAID | LOC: M SOG 07:58 | PROVIDERS: ATTEND Orthopaedic Surgery | DX: S72.142D Displaced intertrochanteric fracture of left femur, subsequent encounter for closed fracture with routine healing (principal) ==

== ENCOUNTER → 2023-11-23 | Outpatient (CLI) | payer MEDICARE, MEDICAID | LOC: M SOG 07:50 | PROVIDERS: ATTEND Orthopaedic Surgery | DX: S72.142D Displaced intertrochanteric fracture of left femur, subsequent encounter for closed fracture with routine healing (principal) ==

== ENCOUNTER → 2024-01-19 | Outpatient (CLI) | payer MEDICARE, MEDICAID ==
[2024-01-19 13:45] LABS: BLOOD UREA NITROGEN 21 MG/DL (9-23); CALCIUM LEVEL 8.7 MG/DL (8.3-10.6); CARBON DIOXIDE LEVEL 27 MMOL/L (20-31); CHLORIDE LEVEL 108 MMOL/L (98-107); CREATININE FOR GFR 0.81 MG/DL (0.70-1.30); GLOMERULAR FILTRATION RATE > 60.0 (>49); GLUCOSE, FASTING 85 MG/DL (74-106); SODIUM LEVEL 140 MMOL/L (136-145)
== END ==
LOC: M PLALAB 11:01
PROVIDERS: ATTEND Student in an Organized Health Care Education/Training Program
DX: Z00.00 Encounter for general adult medical examination without abnormal findings (principal)

== ENCOUNTER → 2024-01-25 | Outpatient (CLI) | payer MEDICARE, MEDICAID ==
[~2024-01-25] MED LIST changes: +ISOVUE-370 76% 100ML VIAL As Ordered ONE
== END ==
LOC: M RAD 08:52
PROVIDERS: ATTEND Student in an Organized Health Care Education/Training Program
DX: J98.59 Other diseases of mediastinum, not elsewhere classified (principal)
CPT/HCPCS: 71260; Q9967

== ENCOUNTER → 2024-02-10 | Outpatient (CLI) | payer MEDICARE, MEDICAID ==
[~2024-02-10] MED LIST changes: -ISOVUE-370 76% 100ML VIAL As Ordered ONE
== END ==
LOC: M LAB 13:22
PROVIDERS: ATTEND Student in an Organized Health Care Education/Training Program
DX: M25.561 Pain in right knee (principal)

== ENCOUNTER → 2025-02-13 | Outpatient (CLI) | payer MEDICAID, MEDICARE ==
[~2025-02-13] MED LIST changes: -BRIM1OPD; -BRIM1OPD OU; +BRIM5DRO25; +BRIM5DRO25 OU; +BUPR75TA5 PO; -FLOM0.4C39 PO; +GABA-1172; +GABA-1172 PO; -GABA-282; -GABA-282 PO; +TAMS-18 PO; +TRAM50TA2 PO; +VITA100093 PO
[2025-02-13 17:33] LABS: CHOLESTEROL RISK RATIO 3.02 (<5); HDL CHOLESTEROL 62.9 MG/DL (>40); LDL CHOLESTEROL 114.9 MG/DL (<100); NON-HDL-C 127.1 MG/DL
[2025-02-15 14:12] LABS: PSA FREE 0.5 ng/mL; PSA TOTAL 1.3 ng/mL (< OR = 4.0)
== END ==
LOC: M PLALAB 14:25
PROVIDERS: ATTEND Student in an Organized Health Care Education/Training Program
DX: Z13.1 Encounter for screening for diabetes mellitus (principal); E78.00 Pure hypercholesterolemia, unspecified; Z12.5 Encounter for screening for malignant neoplasm of prostate

== ENCOUNTER → 2025-04-13 | Outpatient (CLI) | payer MEDICARE, MEDICAID ==
[~2025-04-13] MED LIST changes: +ALBU2.5V10 NEB; +ALBU8.5H INH; +ALLO100T PO; +AMOX875T2 PO; +BUDE90AE INH; +CARA1TAB6 PO; +CEFD300CAP PO; +CYAN100017 IM; +CYCL5TAB4 PO; +DOXY-442 PO; +DOXY100T PO; +LEXA1TAB PO; +LIDOCAINE 1% MDV 20 ML VIAL As Ordered ONE; +NEBU1EAC80 MC; +PRED10TA2 PO; +PROT1TAB2 PO; +TIOT18INH INH; +VENTAER INH; +[UNRECOGNIZED DRUG - OTHER] PO
[2025-04-13 07:35] VITALS: TEMP 97.8
[2025-04-13 08:03] VITALS: BP 123/63; O2SAT 95
== END ==
LOC: M IRPRO 07:26
DX: R59.0 Localized enlarged lymph nodes (principal); C85.90 Non-Hodgkin lymphoma, unspecified, unspecified site

== ENCOUNTER 2025-04-17 08:39 | Outpatient (RCR) | payer MEDICARE, MEDICAID ==
[~2025-04-17 08:39] MED LIST changes: -ALBU2.5V10 NEB; -ALLO100T PO; -BUDE90AE INH; -CARA1TAB6 PO; -CEFD300CAP PO; -DOXY100T PO; -LIDOCAINE 1% MDV 20 ML VIAL As Ordered ONE; -NEBU1EAC80 MC; -PRED10TA2 PO; -PROT1TAB2 PO; -TIOT18INH INH; -VENTAER INH
[2025-04-18] MEDS ORDERED: VENTAER INH (11:58)
[2025-04-18] MEDS ORDERED: PROT1TAB2 PO (11:58)
[2025-04-18] MEDS ORDERED: CEFD300CAP PO (11:58)
[2025-04-18] MEDS ORDERED: TIOT18INH INH (11:58)
[2025-04-18] MEDS ORDERED: BUDE90AE INH (11:58)
[2025-04-18] MEDS ORDERED: CARA1TAB6 PO (11:58)
[2025-04-18] MEDS ORDERED: DOXY100T PO (11:58)
[2025-04-18] MEDS ORDERED: NEBU1EAC80 MC (11:59)
[2025-04-18] MEDS ORDERED: PRED10TA2 PO (12:08)
[2025-04-18] MEDS ORDERED: ALBU2.5V10 NEB (15:09)
[2025-04-18] MEDS ORDERED: ALLO100T PO (15:15)
[2025-04-19] MEDS ORDERED: HYDR1CRE30 TOP (15:00)
[2025-04-27] MEDS ORDERED: ACAL100T PO (10:01)
[2025-05-01] MEDS ORDERED: ONDA-84 PO (11:37)
[2025-05-01] MEDS ORDERED: PROC10TA5 PO (11:37)
== END 2025-05-03 ==
LOC: M ONCR 08:39
PROVIDERS: ATTEND General Practice
DX: Z51.0 Encounter for antineoplastic radiation therapy (principal); C83.32 Diffuse large B-cell lymphoma, intrathoracic lymph nodes

== ENCOUNTER → 2025-04-23 | Outpatient (CLI) | payer MEDICARE, MEDICAID ==
[~2025-04-23] MED LIST changes: +ALBU2.5V10 NEB; +ALLO100T PO; +BUDE90AE INH; +CARA1TAB6 PO; +CEFD300CAP PO; +DOXY100T PO; +HYDR1CRE30 TOP; +NEBU1EAC80 MC; +PRED10TA2 PO; +PROT1TAB2 PO; +TIOT18INH INH; +VENTAER INH
== END ==
LOC: M CARPUL 12:37
PROVIDERS: ATTEND Internal Medicine Medical Oncology
DX: D64.9 Anemia, unspecified (principal)

== ENCOUNTER → 2025-04-24 | Outpatient (CLI) | payer MEDICARE, MEDICAID | LOC: M PLARAD 14:28 | PROVIDERS: ATTEND General Practice | DX: C83.32 Diffuse large B-cell lymphoma, intrathoracic lymph nodes (principal) | CPT/HCPCS: 78815; A9552 ==

== ENCOUNTER → 2025-04-27 | Outpatient (CLI) | payer MEDICARE, MEDICAID ==
[~2025-04-27] MED LIST changes: +ACAL100T PO; +ONDA-84 PO; +PROC10TA5 PO
== END ==
LOC: M ONCR 07:46
PROVIDERS: ATTEND General Practice
DX: C83.10 Mantle cell lymphoma, unspecified site (principal); R06.09 Other forms of dyspnea; Z92.3 Personal history of irradiation; Z79.891 Long term (current) use of opiate analgesic; Z79.52 Long term (current) use of systemic steroids

== ENCOUNTER → 2025-05-03 | Outpatient (CLI) | payer MEDICARE, MEDICAID ==
[~2025-05-03] MED LIST changes: +SODIUM CHLORIDE 0.9% INJ 10 ML SYR IV PRN; +SODIUM CHLORIDE 0.9% INJ 10 ML SYR IV SCH
== END ==
LOC: M IRPRO 11:05
PROVIDERS: ATTEND Internal Medicine Medical Oncology
DX: C85.90 Non-Hodgkin lymphoma, unspecified, unspecified site (principal)
CPT/HCPCS: 36569; C1751

== ENCOUNTER 2025-05-15 08:30 | Outpatient (RCR) | payer MEDICARE, MEDICAID ==
[2023-05-18 11:47] VITALS: BP 100/57; O2SAT 98
[2023-06-16 15:13] VITALS: BP 122/62; O2SAT 97
[2023-06-16] MEDS: CYANOCOBALAMIN 1,000 MCG/ML 1 ML VIAL IM SCH (16:15)
[2023-06-16 16:54] LABS: IRON (FE) 19.0 UG/DL (65-175); PERCENT SATURATION 5.7 % (19.7-50.0)
[2023-06-30 09:53] VITALS: BP 120/68; O2SAT 96
[2023-06-30 10:48] LABS: BASO # 0.1 10^3/uL (0.0-0.2); BASO % 0.8 % (0.0-1.0); EOS # 0.2 10^3/uL (0.0-0.5); EOS % 2.5 % (0.0-3.0); LYMPH # 1.8 10^3/uL (1.5-5.0); LYMPH % 22.8 % (24.0-44.0); MONO # 1.5 10^3/uL (0.0-0.8); MONO % 18.6 % (2.0-8.0); NEUTROPHILS # 4.3 10^3/uL (1.5-8.5); NEUTROPHILS % 54.9 % (36.0-66.0); PLATELET COUNT, AUTOMATED 352 10^3/uL (150-450)
[2023-06-30 11:27] LABS: ALT/SGPT 19 U/L (7.0-40); AST/SGOT 21 U/L (<34); CALCIUM LEVEL 8.6 MG/DL (8.3-10.6); CARBON DIOXIDE LEVEL 28 MMOL/L (20-31); CHLORIDE LEVEL 106 MMOL/L (98-107); CREATININE FOR GFR 0.65 MG/DL (0.70-1.30); GLOMERULAR FILTRATION RATE > 60.0 (>49); IRON (FE) 14 UG/DL (65-175); PERCENT SATURATION 3.8 % (19.7-50.0); POTASSIUM SERUM 4.7 MMOL/L (3.5-5.1); SODIUM LEVEL 141 MMOL/L (136-145)
[2023-07-19 14:00] VITALS: BP 137/68; O2SAT 99
[2023-07-19] MEDS: FERRIC CARBOXYMALTOSE INJ 750 MG, VIAL MATE ADAPTER 1 EACH in NS 250 ML IV SCH (14:52)
[2023-07-19 15:58] VITALS: BP 116/65; O2SAT 99
[2023-07-26 14:05] VITALS: BP 144/73; O2SAT 98
[2023-07-26] MEDS: FERRIC CARBOXYMALTOSE INJ 750 MG, VIAL MATE ADAPTER 1 EACH in NS 250 ML IV SCH (14:37)
[2023-07-26] MEDS: CYANOCOBALAMIN 1,000 MCG/ML 1 ML VIAL IM SCH (14:39)
[2023-07-26] MEDS: SODIUM CHLORIDE 0.9% INJ 10 ML SYR IV PRN (15:19)
[2023-07-26 15:35] VITALS: BP 106/59; O2SAT 99
[2023-09-03 13:50] VITALS: BP 128/69; O2SAT 96
[2023-09-03 14:35] LABS: LDH LACTATE DEHYDROGENASE 159 U/L (120-246)
[2023-09-03 14:36] LABS: ALT/SGPT 17 U/L (7.0-40); AST/SGOT 21 U/L (<34); CALCIUM LEVEL 8.7 MG/DL (8.3-10.6); CARBON DIOXIDE LEVEL 26 MMOL/L (20-31); CHLORIDE LEVEL 106 MMOL/L (98-107); CREATININE FOR GFR 0.68 MG/DL (0.70-1.30); GLOMERULAR FILTRATION RATE > 60.0 (>49); IRON (FE) 83 UG/DL (65-175); PERCENT SATURATION 33.2 % (19.7-50.0); POTASSIUM SERUM 4.4 MMOL/L (3.5-5.1); SODIUM LEVEL 138 MMOL/L (136-145)
[2023-09-03 14:39] LABS: BASO # 0.1 10^3/uL (0.0-0.2); BASO % 1.1 % (0.0-1.0); EOS # 0.1 10^3/uL (0.0-0.5); EOS % 1.7 % (0.0-3.0); LYMPH # 1.9 10^3/uL (1.5-5.0); LYMPH % 40.8 % (24.0-44.0); MONO # 0.6 10^3/uL (0.0-0.8); MONO % 12.3 % (2.0-8.0); NEUTROPHILS # 2.1 10^3/uL (1.5-8.5); NEUTROPHILS % 43.7 % (36.0-66.0); PLATELET COUNT, AUTOMATED 261 10^3/uL (150-450)
[2023-09-06 16:08] LABS: HAPTOGLOBIN 173.0 mg/dL (32-363); IMMUNOTYPING SERUM IGA SO 166.0 mg/dL (61-437); IMMUNOTYPING SERUM IGM SO 119.0 mg/dL (20-172); SOLUBLE TRANSFERRIN RECEPTOR 18.4 nmol/L (12.2-27.3)
[2023-12-28 15:37] VITALS: BP 123/64; O2SAT 97
[2023-12-28 15:54] LABS: BASO # 0.1 10^3/uL (0.0-0.2); BASO % 1.3 % (0.0-1.0); EOS # 0.1 10^3/uL (0.0-0.5); EOS % 1.9 % (0.0-3.0); LYMPH # 3.1 10^3/uL (1.5-5.0); LYMPH % 41.5 % (24.0-44.0); MONO # 0.7 10^3/uL (0.0-0.8); MONO % 9.6 % (2.0-8.0); NEUTROPHILS # 3.4 10^3/uL (1.5-8.5); NEUTROPHILS % 45.3 % (36.0-66.0); PLATELET COUNT, AUTOMATED 216 10^3/uL (150-450)
[2023-12-28 16:24] LABS: ALT/SGPT 30 U/L (7.0-40); AST/SGOT 31 U/L (<34); CALCIUM LEVEL 9.0 MG/DL (8.3-10.6); CARBON DIOXIDE LEVEL 29 MMOL/L (20-31); CHLORIDE LEVEL 109 MMOL/L (98-107); CREATININE FOR GFR 0.84 MG/DL (0.70-1.30); GLOMERULAR FILTRATION RATE > 60.0 (>49); IRON (FE) 113 UG/DL (65-175); PERCENT SATURATION 41.7 % (19.7-50.0); POTASSIUM SERUM 4.3 MMOL/L (3.5-5.1); SODIUM LEVEL 139 MMOL/L (136-145)
[2023-12-28 16:26] LABS: VITAMIN B12 LEVEL 775 PG/ML (211-911)
[2024-04-21 14:47] LABS: BASO # 0.1 10^3/uL (0.0-0.2); BASO % 1.2 % (0.0-1.0); EOS # 0.1 10^3/uL (0.0-0.5); EOS % 1.6 % (0.0-3.0); LYMPH # 2.8 10^3/uL (1.5-5.0); LYMPH % 41.8 % (24.0-44.0); MONO # 0.7 10^3/uL (0.0-0.8); MONO % 10.0 % (2.0-8.0); NEUTROPHILS # 3.1 10^3/uL (1.5-8.5); NEUTROPHILS % 45.3 % (36.0-66.0); PLATELET COUNT, AUTOMATED 215 10^3/uL (150-450)
[2024-04-21 15:16] LABS: ALT/SGPT 20 U/L (7.0-40); AST/SGOT 17 U/L (<34); CALCIUM LEVEL 8.9 MG/DL (8.3-10.6); CARBON DIOXIDE LEVEL 29 MMOL/L (20-31); CHLORIDE LEVEL 108 MMOL/L (98-107); CREATININE FOR GFR 0.79 MG/DL (0.70-1.30); GLOMERULAR FILTRATION RATE > 60.0 (>49); IRON (FE) 106 UG/DL (65-175); PERCENT SATURATION 35.5 % (19.7-50.0); POTASSIUM SERUM 4.4 MMOL/L (3.5-5.1); SODIUM LEVEL 141 MMOL/L (136-145)
[2024-04-21 15:18] LABS: VITAMIN B12 LEVEL 778 PG/ML (211-911)
[2024-04-28 14:45] VITALS: BP 128/75; O2SAT 96
[2024-10-25 14:20] LABS: BASO # 0.1 10^3/uL (0.0-0.2); BASO % 1.3 % (0.0-1.0); EOS # 0.2 10^3/uL (0.0-0.5); EOS % 1.8 % (0.0-3.0); LYMPH # 4.6 10^3/uL (1.5-5.0); LYMPH % 55.5 % (24.0-44.0); MONO # 0.9 10^3/uL (0.0-0.8); MONO % 10.4 % (2.0-8.0); NEUTROPHILS # 2.5 10^3/uL (1.5-8.5); NEUTROPHILS % 30.9 % (36.0-66.0); PLATELET COUNT, AUTOMATED 206 10^3/uL (150-450)
[2024-10-25 14:35] VITALS: BP 126/74; O2SAT 97
[2024-10-25 16:19] LABS: ALT/SGPT 20 U/L (7.0-40); AST/SGOT 27 U/L (<34); CALCIUM LEVEL 8.6 MG/DL (8.3-10.6); CARBON DIOXIDE LEVEL 30 MMOL/L (20-31); CHLORIDE LEVEL 110 MMOL/L (98-107); CREATININE FOR GFR 0.86 MG/DL (0.70-1.30); GLOMERULAR FILTRATION RATE > 60.0 (>49); IRON (FE) 36 UG/DL (65-175); PERCENT SATURATION 11.7 % (19.7-50.0); POTASSIUM SERUM 4.7 MMOL/L (3.5-5.1); SODIUM LEVEL 143 MMOL/L (136-145); VITAMIN B12 LEVEL 638 PG/ML (211-911)
[2024-10-25 16:20] LABS: TOTAL 25(OH) VITAMIN D 26.6 NG/ML (20.0-100.0)
[2024-12-21 14:16] VITALS: BP 142/69; O2SAT 96
[2024-12-21] MEDS: ACETAMINOPHEN 325 MG TAB PO SCH (14:24)
[2024-12-21] MEDS: IRON SUCROSE 100 MG/5 ML VIAL IV SCH (14:40)
[2024-12-21 14:59] VITALS: BP 117/62; O2SAT 95
[2024-12-28 13:55] VITALS: BP 129/64; O2SAT 98
[2024-12-28] MEDS: ACETAMINOPHEN 325 MG TAB PO SCH (14:05)
[2024-12-28] MEDS: IRON SUCROSE 100 MG/5 ML VIAL IV SCH (14:26)
[2024-12-28 14:54] VITALS: BP 117/65; O2SAT 96
[2025-01-04 13:57] VITALS: BP 118/65; O2SAT 97
[2025-01-04] MEDS: ACETAMINOPHEN 325 MG TAB PO SCH (14:13)
[2025-01-04] MEDS: IRON SUCROSE 100 MG/5 ML VIAL IV SCH (14:20)
[2025-01-04] MEDS: SODIUM CHLORIDE 0.9% INJ 10 ML SYR IV PRN (14:54)
[2025-01-04 14:59] VITALS: BP 136/71; O2SAT 95
[2025-01-11] MEDS: ACETAMINOPHEN 325 MG TAB PO SCH (07:00)
[2025-01-11 13:57] VITALS: BP 145/76; O2SAT 97
[2025-01-11] MEDS: IRON SUCROSE 100 MG/5 ML VIAL IV SCH (14:19)
[2025-01-11 14:39] VITALS: BP 117/61; O2SAT 96
[2025-01-18 13:45] VITALS: BP 134/70; O2SAT 97
[2025-01-18] MEDS: ACETAMINOPHEN 325 MG TAB PO SCH (14:24)
[2025-01-18] MEDS: IRON SUCROSE 100 MG/5 ML VIAL IV SCH (14:36)
[2025-01-18 15:02] VITALS: BP 117/64; O2SAT 97
[2025-04-19 14:20] VITALS: BP 124/71; O2SAT 94
[2025-04-19 16:11] LABS: BASO # 0.3 10^3/uL (0.0-0.2); BASO % 1.5 % (0.0-1.0); EOS # 0.1 10^3/uL (0.0-0.5); EOS % 0.7 % (0.0-3.0); LYMPH # 11.8 10^3/uL (1.5-5.0); LYMPH % 60.1 % (24.0-44.0); MONO # 1.1 10^3/uL (0.0-0.8); MONO % 5.7 % (2.0-8.0); NEUTROPHILS # 6.2 10^3/uL (1.5-8.5); NEUTROPHILS % 31.5 % (36.0-66.0); PLATELET COUNT, AUTOMATED 170 10^3/uL (150-450)
[2025-04-19 16:37] LABS: LDH LACTATE DEHYDROGENASE 548 U/L (120-246)
[2025-04-19 16:39] LABS: INR 1.12
[2025-04-19 16:41] LABS: HEPATITIS B SURFACE ANTIBODY NEGATIVE (POSITIVE)
[2025-04-19 16:46] LABS: ALT/SGPT 43 U/L (7.0-40); AST/SGOT 103 U/L (<34); CALCIUM LEVEL 8.1 MG/DL (8.3-10.6); CARBON DIOXIDE LEVEL 24 MMOL/L (20-31); CHLORIDE LEVEL 106 MMOL/L (98-107); CREATININE FOR GFR 0.78 MG/DL (0.70-1.30); GLOMERULAR FILTRATION RATE > 90.0 (>49); POTASSIUM SERUM 5.4 MMOL/L (3.5-5.1); SODIUM LEVEL 143 MMOL/L (136-145)
[2025-04-27 08:05] VITALS: BP 116/69; O2SAT 92
[2025-04-27 09:02] LABS: BASO # 0.3 10^3/uL (0.0-0.2); BASO % 1.4 % (0.0-1.0); EOS # 0.1 10^3/uL (0.0-0.5); EOS % 0.7 % (0.0-3.0); LYMPH # 11.3 10^3/uL (1.5-5.0); LYMPH % 62.0 % (24.0-44.0); MONO # 1.5 10^3/uL (0.0-0.8); MONO % 8.1 % (2.0-8.0); NEUTROPHILS # 4.9 10^3/uL (1.5-8.5); NEUTROPHILS % 26.8 % (36.0-66.0)
[2025-04-27 09:24] LABS: INR 1.2
[2025-05-01 11:08] LABS: BASO # 0.2 10^3/uL (0.0-0.2); BASO % 1.2 % (0.0-1.0); EOS # 0.1 10^3/uL (0.0-0.5); EOS % 0.4 % (0.0-3.0); LYMPH # 9.8 10^3/uL (1.5-5.0); LYMPH % 63.2 % (24.0-44.0); MONO # 1.0 10^3/uL (0.0-0.8); MONO % 6.7 % (2.0-8.0); NEUTROPHILS # 4.3 10^3/uL (1.5-8.5); NEUTROPHILS % 27.9 % (36.0-66.0)
[2025-05-01 11:39] VITALS: BP 116/63; O2SAT 94
[2025-05-01 11:41] LABS: PLATELET COUNT, AUTOMATED 59 10^3/uL (150-450)
[2025-05-01 11:46] LABS: LDH LACTATE DEHYDROGENASE 486 U/L (120-246)
[2025-05-01 11:47] LABS: ALT/SGPT 21 U/L (7.0-40); AST/SGOT 70 U/L (<34); CALCIUM LEVEL 7.2 MG/DL (8.3-10.6); CARBON DIOXIDE LEVEL 24 MMOL/L (20-31); CHLORIDE LEVEL 104 MMOL/L (98-107); CREATININE FOR GFR 0.80 MG/DL (0.70-1.30); GLOMERULAR FILTRATION RATE > 90.0 (>49); MAGNESIUM LEVEL 1.8 MG/DL (1.8-2.4); POTASSIUM SERUM 4.2 MMOL/L (3.5-5.1); SODIUM LEVEL 141 MMOL/L (136-145)
[2025-05-03 08:46] VITALS: BP 115/67; O2SAT 93
[2025-05-07] VITALS (10 sets, daily range): BP systolic 94–118; BP diastolic 52–69; O2SAT 88–95
[2025-05-07 08:36] LABS: BASO # 0.2 10^3/uL (0.0-0.2); BASO % 1.4 % (0.0-1.0); EOS # 0.1 10^3/uL (0.0-0.5); EOS % 0.6 % (0.0-3.0); LYMPH # 9.6 10^3/uL (1.5-5.0); LYMPH % 56.3 % (24.0-44.0); MONO # 1.2 10^3/uL (0.0-0.8); MONO % 6.9 % (2.0-8.0); NEUTROPHILS # 5.7 10^3/uL (1.5-8.5); NEUTROPHILS % 33.8 % (36.0-66.0)
[2025-05-07 08:38] LABS: PLATELET COUNT, AUTOMATED 60 10^3/uL (150-450)
[2025-05-07 09:05] LABS: ALT/SGPT 17 U/L (7.0-40); AST/SGOT 64 U/L (<34); CALCIUM LEVEL 7.9 MG/DL (8.3-10.6); CARBON DIOXIDE LEVEL 25 MMOL/L (20-31); CHLORIDE LEVEL 102 MMOL/L (98-107); CREATININE FOR GFR 0.74 MG/DL (0.70-1.30); GLOMERULAR FILTRATION RATE > 90.0 (>49); MAGNESIUM LEVEL 1.7 MG/DL (1.8-2.4); POTASSIUM SERUM 4.2 MMOL/L (3.5-5.1); SODIUM LEVEL 138 MMOL/L (136-145)
[2025-05-07 09:21] LABS: HEPATITIS B SURFACE ANTIBODY NEGATIVE (POSITIVE)
[2025-05-07] MEDS: dexAMETHasone 4 MG/ML 1 ML VIAL IV SCH (09:30)
[2025-05-07] MEDS: ACETAMINOPHEN 325 MG TAB PO SCH (09:30)
[2025-05-07] MEDS: diphenhydrAMINE 50 MG/ML VIAL IV SCH (09:31)
[2025-05-07] MEDS: PALONOSETRON 0.25 MG/5 ML VIAL IV SCH (09:31)
[2025-05-07] MEDS: FOSAPREPITANT 150 MG, VIAL 2 BAG 13MM ADAPTER 1 EACH in NS 250 ML IV SCH (09:32)
[2025-05-07] MEDS: NS IV SCH ×2 (10:32→14:17)
[2025-05-07] MEDS: RITUXIMAB PVVR IV SCH (10:32)
[2025-05-07] MEDS: ALBUTEROL SULFATE 2.5 MG/0.5 ML INH CONCENTRATE NEB SOLN INH STA (13:10)
[2025-05-07] MEDS: BENDAMUSTINE IV SCH (14:17)
[2025-05-07] MEDS: SODIUM CHLORIDE 0.9% INJ 10 ML SYR IV PRN (14:38)
[2025-05-08] MEDS: NS 500 ML IV ONE (09:43)
[2025-05-08 09:45] VITALS: BP 102/59; O2SAT 88
[2025-05-08] MEDS: dexAMETHasone 4 MG/ML 1 ML VIAL IV SCH (09:56)
[2025-05-08] MEDS: MAG SULF 1GM/100ML (MAG RUN) 100 ML IV ONE (09:56)
[2025-05-08] MEDS: NS IV SCH (11:05)
[2025-05-08] MEDS: BENDAMUSTINE IV SCH (11:05)
[2025-05-08] MEDS: PEGFILGRASTIM 6 MG/0.6 ML ONPRO KIT SC SCH (11:25)
[2025-05-08] MEDS: SODIUM CHLORIDE 0.9% INJ 10 ML SYR IV PRN (11:25)
[2025-05-10 11:47] VITALS: BP 110/63; O2SAT 90
[2025-05-10 12:08] LABS: BASO # 0.1 10^3/uL (0.0-0.2); BASO % 0.5 % (0.0-1.0); EOS # 0.0 10^3/uL (0.0-0.5); EOS % 0.2 % (0.0-3.0); LYMPH # 1.6 10^3/uL (1.5-5.0); LYMPH % 10.1 % (24.0-44.0); MONO # 0.8 10^3/uL (0.0-0.8); MONO % 4.9 % (2.0-8.0); NEUTROPHILS # 11.6 10^3/uL (1.5-8.5); NEUTROPHILS % 73.9 % (36.0-66.0)
[2025-05-10] MEDS: NS (Normal Saline) 0.9% 1,000 ML IV ONE (12:20)
[2025-05-10 12:55] LABS: PLATELET COUNT, AUTOMATED 25 10^3/uL (150-450)
[2025-05-10] MEDS: ALBUTEROL SULFATE 2.5 MG/0.5 ML INH CONCENTRATE NEB SOLN NEB ONE (13:24)
[2025-05-10 13:30] LABS: ALT/SGPT 15 U/L (7.0-40); AST/SGOT 73 U/L (<34); CALCIUM LEVEL 6.9 MG/DL (8.3-10.6); CARBON DIOXIDE LEVEL 24 MMOL/L (20-31); CHLORIDE LEVEL 105 MMOL/L (98-107); CREATININE FOR GFR 0.77 MG/DL (0.70-1.30); GLOMERULAR FILTRATION RATE > 90.0 (>49); MAGNESIUM LEVEL 2.0 MG/DL (1.8-2.4); POTASSIUM SERUM 4.5 MMOL/L (3.5-5.1); SODIUM LEVEL 139 MMOL/L (136-145)
[2025-05-10] MEDS: SODIUM CHLORIDE 0.9% INJ 10 ML SYR IV PRN (14:40)
[~2025-05-15] VITALS: Ht 167.6 cm; Wt 67.4 kg
[~2025-05-15 08:30] MED LIST changes: +ACETAMINOPHEN 325 MG TAB PO SCH; +ALBUTEROL SULFATE 2.5 MG/0.5 ML INH CONCENTRATE NEB SOLN As Ordered ONE; +BENDAMUSTINE IV SCH; +FAMOTIDINE 20 MG/2 ML VIAL As Ordered ONE; +FOSAPREPITANT 150 MG, VIAL 2 BAG 13MM ADAPTER 1 EACH in NS 250 ML IV SCH; +NS IV SCH; +PALONOSETRON 0.25 MG/5 ML VIAL IV SCH; +PEGFILGRASTIM 6 MG/0.6 ML ONPRO KIT SC SCH; +RITUXIMAB PVVR IV SCH; -SODIUM CHLORIDE 0.9% INJ 10 ML SYR IV SCH; +dexAMETHasone 4 MG/ML 1 ML VIAL IV SCH; +diphenhydrAMINE 50 MG/ML VIAL As Ordered ONE; +diphenhydrAMINE 50 MG/ML VIAL IV SCH
[2025-05-15 09:03] LABS: BASO # 0.2 10^3/uL (0.0-0.2); BASO % 0.9 % (0.0-1.0); EOS # 0.1 10^3/uL (0.0-0.5); EOS % 0.6 % (0.0-3.0); LYMPH # 2.5 10^3/uL (1.5-5.0); LYMPH % 13.8 % (24.0-44.0); MONO # 1.8 10^3/uL (0.0-0.8); MONO % 9.9 % (2.0-8.0); NEUTROPHILS # 12.5 10^3/uL (1.5-8.5); NEUTROPHILS % 69.3 % (36.0-66.0)
[2025-05-15 09:07] LABS: PLATELET COUNT, AUTOMATED 34 10^3/uL (150-450)
[2025-05-15 09:41] LABS: ALT/SGPT 12 U/L (7.0-40); AST/SGOT 61 U/L (<34); CALCIUM LEVEL 7.1 MG/DL (8.3-10.6); CARBON DIOXIDE LEVEL 26 MMOL/L (20-31); CHLORIDE LEVEL 108 MMOL/L (98-107); CREATININE FOR GFR 0.76 MG/DL (0.70-1.30); GLOMERULAR FILTRATION RATE > 90.0 (>49); MAGNESIUM LEVEL 1.9 MG/DL (1.8-2.4); POTASSIUM SERUM 4.3 MMOL/L (3.5-5.1); SODIUM LEVEL 143 MMOL/L (136-145)
[2025-05-15 10:04] VITALS: BP 104/63; O2SAT 83
[2025-05-15] MEDS ORDERED: ALLO100T PO (14:08)
== END 2025-05-19 | disposition expired ==
LOC: M ONCM 08:30
PROVIDERS: ATTEND Internal Medicine Hematology & Oncology
DX: D50.9 Iron deficiency anemia, unspecified (principal); G31.84 Mild cognitive impairment of uncertain or unknown etiology; G40.89 Other seizures; E53.8 Deficiency of other specified B group vitamins; Z86.011 Personal history of benign neoplasm of the brain; Z86.718 Personal history of other venous thrombosis and embolism; Z79.01 Long term (current) use of anticoagulants; Z79.899 Other long term (current) drug therapy; R18.8 Other ascites; Z11.59 Encounter for screening for other viral diseases; D64.9 Anemia, unspecified
CPT/HCPCS: 36415; 80053; 80503; 82306; 82607; 82728; 82746; 82784; 83010; 83520; 83550; 83615; 83735; 85025; 85046; 85049; 85055; 85610; 85730; 86334; 86705; 86706; 86803; 86850; 86880; 87340; 94640; 96360; 96361; 96365; 96367; 96372; 96375; 96377; 96411; 96413; 96415; G0463; J1100; J1200; J1439; J1453; J1642; J1756; J2469; J2506; J3420; J3475; J9034; Q5119

== ENCOUNTER 2025-05-15 11:33 | Inpatient (IN) | payer MEDICARE, MEDICAID ==
[~2025-05-15] VITALS: Ht 172.7 cm; Wt 58.9 kg
[~2025-05-15 11:33] MED LIST changes: -ACETAMINOPHEN 325 MG TAB PO SCH; -ALBUTEROL SULFATE 2.5 MG/0.5 ML INH CONCENTRATE NEB SOLN As Ordered ONE; -BENDAMUSTINE IV SCH; -FAMOTIDINE 20 MG/2 ML VIAL As Ordered ONE; -FOSAPREPITANT 150 MG, VIAL 2 BAG 13MM ADAPTER 1 EACH in NS 250 ML IV SCH; -NS IV SCH; -PALONOSETRON 0.25 MG/5 ML VIAL IV SCH; -PEGFILGRASTIM 6 MG/0.6 ML ONPRO KIT SC SCH; -RITUXIMAB PVVR IV SCH; -SODIUM CHLORIDE 0.9% INJ 10 ML SYR IV PRN; -dexAMETHasone 4 MG/ML 1 ML VIAL IV SCH; -diphenhydrAMINE 50 MG/ML VIAL As Ordered ONE; -diphenhydrAMINE 50 MG/ML VIAL IV SCH
[2025-05-15 12:43] LABS: MAGNESIUM LEVEL 2.0 MG/DL (1.8-2.4)
[2025-05-15] MEDS: HEPARIN LOCK FLUSH 100 UNITS/ML 3 ML SYRINGE IV PRN (12:44)
[2025-05-15 13:01] LABS: VENOUS BASE EXCESS 1.3 (-2.0-2.0); VENOUS HCO3 25.9 MMOL/L (23.0-27.0); VENOUS O2 SATURATION 83.7 % (60.0-80.0); VENOUS PARTIAL PRESSURE CO2 41.2 mmHg (38.0-50.0); VENOUS PARTIAL PRESSURE O2 51.4 mmHg (30.0-50.0); VENOUS PH 7.417 UNITS (7.330-7.430); VENOUS STANDARD HCO3 25.4 MMOL/L; VENOUS TOTAL CO2 27.2 MMOL/L (24.0-28.0)
[2025-05-15] MEDS ORDERED: ISOVUE-370 76% 100 ML VIAL As Ordered ONE (13:41)
[2025-05-15] MEDS ORDERED: ALLO100T PO (14:08)
[2025-05-15] MEDS ORDERED: HOME MED LIST COMPLETE! XX SCH (14:10)
[2025-05-15] MEDS: IPRATROPIUM 0.5 MG/ALBUTEROL 2.5 MG INH SOL UD 3 ML NEB PRN (14:25)
[2025-05-15] MEDS: FUROSEMIDE 40 MG/4 ML VIAL IV ONE ×2 (14:50→20:00)
[2025-05-15] MEDS: HEPARIN LOCK FLUSH 100 UNITS/ML 3 ML SYRINGE IV SCH (17:58)
[2025-05-15] MEDS: SODIUM CHLORIDE 0.9% INJ 10 ML SYR IV SCH (17:58)
[2025-05-15] MEDS: LEVALBUTEROL 1.25 MG 0.5ML CONCENTRATE NEB NEB SCH (19:07)
[2025-05-15] MEDS: SYMBICORT 160/4.5MCG INHALER 6GM INH SCH (19:07)
[2025-05-15] MEDS: PIPERACILLIN/TAZOBACTAM SOD 3.375 GM in DEXTROSE 5% (D5W) ADV/MINI-BAG 50 ML IV SCH (20:44)
[2025-05-16] VITALS (9 sets, daily range): BP systolic 96–127; BP diastolic 57–63; TEMP 97.5–100; O2SAT 89–96
[2025-05-16] MEDS: LATANOPROST 0.005% OPHTH SOLN 2.5 ML OU SCH (00:11)
[2025-05-16] MEDS: GABAPENTIN 400 MG CAP PO SCH ×2 (00:11→09:14)
[2025-05-16] MEDS: BRIMONIDINE 0.1% OPHTH SOLN 5 ML OU SCH (00:11)
[2025-05-16 08:57] LABS: BASO # 0.1 10^3/uL (0.0-0.2); BASO % 0.7 % (0.0-1.0); EOS # 0.1 10^3/uL (0.0-0.5); EOS % 0.5 % (0.0-3.0); LYMPH # 1.9 10^3/uL (1.5-5.0); LYMPH % 10.6 % (24.0-44.0); MONO # 1.2 10^3/uL (0.0-0.8); MONO % 6.7 % (2.0-8.0); NEUTROPHILS # 14.0 10^3/uL (1.5-8.5); NEUTROPHILS % 77.5 % (36.0-66.0)
[2025-05-16] MEDS ORDERED: ESCITALOPRAM OXALATE 10 MG TABLET PO SCH (09:00)
[2025-05-16 09:01] LABS: PLATELET COUNT, AUTOMATED 34 10^3/uL (150-450)
[2025-05-16] MEDS: ESCITALOPRAM OXALATE 10 MG TABLET PO SCH (09:14)
[2025-05-16 09:20] LABS: CALCIUM LEVEL 6.7 MG/DL (8.3-10.6); CARBON DIOXIDE LEVEL 27 MMOL/L (20-31); CHLORIDE LEVEL 105 MMOL/L (98-107); CREATININE FOR GFR 0.78 MG/DL (0.70-1.30); GLOMERULAR FILTRATION RATE > 90.0 (>49); POTASSIUM SERUM 4.2 MMOL/L (3.5-5.1); SODIUM LEVEL 143 MMOL/L (136-145)
[2025-05-16] MEDS: TIOTROPIUM BROM 2.5MCG/ACTUATION 4GM INH INH SCH (09:34)
[2025-05-16] MEDS: FUROSEMIDE 40 MG/4 ML VIAL IV SCH (09:40)
[2025-05-16] MEDS: CALCIUM GLUCONATE 1,000 MG in DEXTROSE 5% (D5W) MINI-BAG PLU 100 ML IV ONE (14:01)
[2025-05-16] MEDS: FUROSEMIDE 100 MG/10 ML VIAL IV ONE (23:48)
[2025-05-17] VITALS (85 sets, daily range): BP systolic 64–182; BP diastolic 40–77; TEMP 99.9–101.8; O2SAT 86–100
[2025-05-17 00:13] LABS: ABG BASE EXCESS -1.1 (-2.0-2.0); ABG HCO3 24.8 MMOL/L (22.0-26.0); ABG O2 SATURATION 99.1 % (95.0-99.0); ABG PARTIAL PRESSURE CO2 46.4 mmHg (35.0-45.0); ABG PARTIAL PRESSURE O2 194.2 mmHg (75.0-100.0); ABG STANDARD HCO3 23.6 MMOL/L. (22.0-26.0); ABG TOTAL CO2 26.2 MMOL/L (23.0-31.0); ABG pH (ARTERIAL) 7.345 UNITS (7.350-7.450)
[2025-05-17] MEDS ORDERED: ROCURONIUM BROMIDE 50MG/5ML VIAL ONE (01:30)
[2025-05-17] MEDS ORDERED: PHENYLephrine 500MCG 5ML (100MCG/ML) SYRINGE ONE (01:30)
[2025-05-17] MEDS ORDERED: NOREPINEPHRINE BITARTRATE 16 MG in D5W 484 ML IV SCH (01:45)
[2025-05-17] MEDS ORDERED: NOREPINEPHRINE 4 MG IN D5W 250 ML IVBAG (16 MCG/ML) As Ordered ONE (01:54)
[2025-05-17] MEDS ORDERED: PROPOFOL 1,000 MG/100 ML VIAL As Ordered ONE (02:01)
[2025-05-17] MEDS: VANCOMYCIN HCL 1,250 MG, VIAL MATE ADAPTER 1 EACH in NS 250 ML IV ONE (02:20)
[2025-05-17] MEDS: NOREPINEPHRINE 4MG IN D5 250ML 4 MG in IV 1 EA IV SCH (02:22)
[2025-05-17 02:48] LABS: ABG BASE EXCESS 3.5 (-2.0-2.0); ABG HCO3 28.8 MMOL/L (22.0-26.0); ABG O2 SATURATION 99.1 % (95.0-99.0); ABG PARTIAL PRESSURE CO2 47.1 mmHg (35.0-45.0); ABG PARTIAL PRESSURE O2 238.4 mmHg (75.0-100.0); ABG STANDARD HCO3 27.6 MMOL/L. (22.0-26.0); ABG TOTAL CO2 30.2 MMOL/L (23.0-31.0); ABG pH (ARTERIAL) 7.404 UNITS (7.350-7.450)
[2025-05-17 02:59] LABS: PLATELET COUNT, AUTOMATED 30 10^3/uL (150-450)
[2025-05-17 03:06] LABS: INR 1.06
[2025-05-17 03:38] LABS: ALT/SGPT 16 U/L (7.0-40); AST/SGOT 61 U/L (<34); CALCIUM LEVEL 6.9 MG/DL (8.3-10.6); CARBON DIOXIDE LEVEL 29 MMOL/L (20-31); CHLORIDE LEVEL 104 MMOL/L (98-107); CREATININE FOR GFR 0.80 MG/DL (0.70-1.30); GLOMERULAR FILTRATION RATE > 90.0 (>49); MAGNESIUM LEVEL 1.8 MG/DL (1.8-2.4); POTASSIUM SERUM 3.7 MMOL/L (3.5-5.1); SODIUM LEVEL 144 MMOL/L (136-145)
[2025-05-17] MEDS: MIDAZOLAM INJ 2 MG/2 ML VIAL IV PRN (03:58)
[2025-05-17] MEDS ORDERED: niCARdipine IV 40 MG in IV 1 EA IV SCH (04:25)
[2025-05-17] MEDS ORDERED: dilTIAZem 25 MG/5 ML VIAL As Ordered ONE (04:56)
[2025-05-17] MEDS: dilTIAZem 25 MG/5 ML VIAL IV STA (05:06)
[2025-05-17 07:13] LABS: PLATELET COUNT, AUTOMATED 29 10^3/uL (150-450)
[2025-05-17 07:20] LABS: CALCIUM LEVEL 6.5 MG/DL (8.3-10.6); CARBON DIOXIDE LEVEL 29 MMOL/L (20-31); CHLORIDE LEVEL 104 MMOL/L (98-107); CREATININE FOR GFR 0.78 MG/DL (0.70-1.30); GLOMERULAR FILTRATION RATE > 90.0 (>49); POTASSIUM SERUM 3.0 MMOL/L (3.5-5.1); SODIUM LEVEL 144 MMOL/L (136-145)
[2025-05-17] MEDS ORDERED: CALCIUM CHLORIDE 10% 1 GM/10 ML SYR IV STA (08:23)
[2025-05-17] MEDS ORDERED: HYDROCORTISONE 100 MG/2 ML VIAL IV SCH (09:00)
[2025-05-17] MEDS: dexmedeTOMidine 200 MCG in IV 1 EA IV SCH (09:29)
[2025-05-17] MEDS: VASOPRESSIN IN 0.9 % NACL 20 UNIT in IV 1 EA IV SCH (10:08)
[2025-05-17] MEDS: CALCIUM CHLORIDE 10% 1 GM in D5W 100 ML IV ONE (10:49)
[2025-05-17] MEDS: KCL 20MEQ IN 100ML SWI (KRUN) 20 MEQ in IV 1 EA IV ONE (10:49)
[2025-05-17] MEDS ORDERED: VANCOMYCIN HCL 1,000 MG, VIAL MATE ADAPTER 1 EACH in NS 250 ML IV SCH (12:00)
[2025-05-17] MEDS: ACETAMINOPHEN *IV* 1,000 MG in IV 1 EA IV PRN (12:05)
[2025-05-17] MEDS: PANTOPRAZOLE 40MG VIAL IV SCH (18:05)
[2025-05-18] VITALS (30 sets, daily range): BP systolic 93–125; BP diastolic 56–71; TEMP 99–100.2; O2SAT 95–99
[2025-05-18 05:02] LABS: PLATELET COUNT, AUTOMATED 40 10^3/uL (150-450)
[2025-05-18 05:12] LABS: CPK CREATINE PHOSPHOKINASE 33 U/L (46-171)
[2025-05-18 05:30] LABS: ALT/SGPT 13 U/L (7.0-40); AST/SGOT 44 U/L (<34); CALCIUM LEVEL 6.3 MG/DL (8.3-10.6); CARBON DIOXIDE LEVEL 30 MMOL/L (20-31); CHLORIDE LEVEL 99 MMOL/L (98-107); CK-MB VALUE MASS < 1.0 NG/ML (<3.6); CREATININE FOR GFR 0.66 MG/DL (0.70-1.30); GLOMERULAR FILTRATION RATE > 90.0 (>49); PHOSPHORUS LEVEL 4.1 MG/DL (2.4-5.1); POTASSIUM SERUM 3.1 MMOL/L (3.5-5.1); SODIUM LEVEL 140 MMOL/L (136-145)
[2025-05-18 05:35] LABS: LYMPHOCYTES 18 % (16-44); MONOCYTES 6 % (0-5); NEUTROPHILS 76 % (28-66)
[2025-05-18 05:38] LABS: PLATELET ESTIMATE MARKED DECREASE (NORMAL)
[2025-05-18] MEDS: KCL 20MEQ IN 100ML SWI (KRUN) 20 MEQ in IV 1 EA IV ONE (06:22)
[2025-05-18] MEDS: ASPIRIN 325 MG TAB PO ONE (07:49)
[2025-05-18] MEDS: MORPHINE 2 MG/ML 1 ML VIAL IV PRN ×2 (17:38→18:42)
[2025-05-18] MEDS: SCOPOLAMINE 1MG TRANSDERMAL PATCH TOP PRN (17:38)
[2025-05-22 14:57] LABS: BASO # 0.1 10^3/uL (0.0-0.2); BASO % 0.5 % (0.0-1.0); EOS # 0.2 10^3/uL (0.0-0.5); EOS % 0.8 % (0.0-3.0); LYMPH # 2.5 10^3/uL (1.5-5.0); LYMPH % 13.8 % (24.0-44.0); MONO # 1.1 10^3/uL (0.0-0.8); MONO % 6.2 % (2.0-8.0); NEUTROPHILS # 13.7 10^3/uL (1.5-8.5); NEUTROPHILS % 76.6 % (36.0-66.0)
== END 2025-05-19 00:20 | disposition expired | DRG 208 ==
LOC: M ED 11:33 → M ED INP 15:36 → M PCU 05-16 18:00 → M ICU 05-17 01:04
PROVIDERS: ADMIT Internal Medicine Nephrology; ATTEND Internal Medicine Critical Care Medicine
PROC: 5A1945Z Respiratory Ventilation, 24-96 Consecutive Hours (ICD-10-PCS; principal; 2025-05-17)
PROC: 0BH17EZ Insertion of Endotracheal Airway into Trachea, Via Natural or Artificial Opening (ICD-10-PCS; 2025-05-17)
DX: J96.01 Acute respiratory failure with hypoxia (principal); E43 Unspecified severe protein-calorie malnutrition; R65.21 Severe sepsis with septic shock; A41.9 Sepsis, unspecified organism; J18.9 Pneumonia, unspecified organism; J91.0 Malignant pleural effusion; C83.18 Mantle cell lymphoma, lymph nodes of multiple sites; I82.531 Chronic embolism and thrombosis of right popliteal vein; E87.20 Acidosis, unspecified; J44.0 Chronic obstructive pulmonary disease with (acute) lower respiratory infection; I48.91 Unspecified atrial fibrillation; Z51.5 Encounter for palliative care; Z66 Do not resuscitate; D64.9 Anemia, unspecified; E78.5 Hyperlipidemia, unspecified; E83.51 Hypocalcemia; D69.6 Thrombocytopenia, unspecified; G47.33 Obstructive sleep apnea (adult) (pediatric); R41.89 Other symptoms and signs involving cognitive functions and awareness; G40.909 Epilepsy, unspecified, not intractable, without status epilepticus; F32.A Depression, unspecified; Z91.51 Personal history of suicidal behavior; M15.9 Polyosteoarthritis, unspecified; E53.8 Deficiency of other specified B group vitamins; Z79.01 Long term (current) use of anticoagulants; Z79.899 Other long term (current) drug therapy; Z92.21 Personal history of antineoplastic chemotherapy; Z92.3 Personal history of irradiation